=== PATIENT | female | born 1955 | race Caucasian/White ===

== ENCOUNTER 2017-08-23 13:04 | Inpatient (IN) | payer SELFPAY ==
[~2017-08-23] VITALS: Ht 160 cm; Wt 61.2 kg
[~2017-08-23 13:04] MED LIST: CIP500T PO; COM10T PO; HYDR-569 PO; IBUP-1984 PO; NO HOME MEDS
[2017-08-23] MEDS ORDERED: dicyclomine 10mg/ml 2ml ampule IM ONE (16:10)
[2017-08-23] MEDS ORDERED: glycopyrrolate 0.2mg/ml inj IV ONE (16:10)
[2017-08-23] MEDS ORDERED: morphine 4 MG/ML inj SYRINge IV ONE (16:10)
[2017-08-23] MEDS ORDERED: normal saline 1000ML IV soln IVB ONE ×3 (16:10→19:55)
[2017-08-23] MEDS ORDERED: ondansetron/PF 4mg/2ml inj IV ONE ×2 (16:10→19:40)
[2017-08-23 16:51] LABS: BASOPHILS % (AUTO) 0 % (0-1); EOSINOPHILS % (AUTO) 0 % (0-6); HEMATOCRIT 41.5 % (35.0-45.0); HEMOGLOBIN 14.6 g/dl (12.0-16.0); LYMPHOCYTES % (AUTO) 8.5 % (21-51); MEAN CORPUSCULAR HEMOGLOBIN 32.9 PG (27.0-31.0); MEAN CORPUSCULAR HGB CONC 35.1 % (33.0-36.5); MEAN CORPUSCULAR VOLUME 93.8 FL (78-98); MEAN PLATELET VOLUME 8.7 FL (7.4-10.4); MONOCYTES # (AUTO) 0.6 X10'3 (0-0.9); MONOCYTES % (AUTO) 4.7 % (2-12); NEUTROPHILS # (AUTO) 10.4 X10'3 (1.8-7.7); NEUTROPHILS % (AUTO) 86.8 % (42-75); PLATELET COUNT 186 X10'3 (140-440); RED BLOOD COUNT 4.43 X10'6 (4.20-5.60); RED CELL DISTRIBUTION WIDTH 14.2 % (11.5-14.5)
[2017-08-23 17:38] LABS: ALANINE AMINOTRANSFERASE 77 U/L (12-78); ALBUMIN 2.8 G/DL (3.4-5.0); ALBUMIN/GLOBULIN RATIO 0.4 (1.1-1.5); ALKALINE PHOSPHATASE 440 IU/L (46-116); ANION GAP 14 (8-16); BILIRUBIN,TOTAL 1.2 MG/DL (0.1-1.0); BLOOD UREA NITROGEN 13 MG/DL (7-18); BUN/CREATININE RATIO 16.5 (6.6-38.0); CALCIUM 9.3 MG/DL (8.5-10.1); CHLORIDE 98 MMOL/L (99-107); CREATININE 0.79 MG/DL (0.40-0.90); GLUCOSE 123 MG/DL (70-104); LIPASE 68 U/L (73-393); MAGNESIUM 2.1 MG/DL (1.5-2.4); SODIUM 135 MMOL/L (135-145); TOTAL CARBON DIOXIDE 22.8 MMOL/L (24-32); TOTAL PROTEIN 9.6 G/DL (6.4-8.2); eGFR 74 ML/MIN
[2017-08-23 17:39] LABS: ASPARTATE AMINO TRANSFERASE 55 U/L (10-37)
[2017-08-23] MEDS ORDERED: CefTRIAXone 2gm/NS 100ml IVPB 100 ML IV ONE (19:55)
[2017-08-23] MEDS ORDERED: azithromycin/NS 500mg/250ml 250 ML IV ONE (19:55)
[2017-08-23] MEDS ORDERED: acetaminophen 325mg tablet PO ONE (20:10)
[2017-08-23] MEDS ORDERED: butalbital/acetaminophen/caffeine (Fioricet) tablet PO ONE ×2 (21:00→21:25)
[2017-08-23] MEDS ORDERED: ketorolac trometh. 30mg/ml inj. IV ONE (21:25)
[2017-08-23] MEDS ORDERED: proCHLORperazine 10 MG/2 ml inj IV ONE (21:25)
[2017-08-23] MEDS ORDERED: mag hydrox/Alum hydrox/simeth 30ml oral suspension PO PRN (21:45)
[2017-08-23] MEDS ORDERED: bisacodyl 10mg suppository rectal RC PRN (21:45)
[2017-08-23] MEDS ORDERED: ondansetron/PF 4mg/2ml inj IV PRN (21:45)
[2017-08-23] MEDS ORDERED: morphine 2 MG/ML inj. syringe IV PRN ×2 (21:45)
[2017-08-23] MEDS ORDERED: magnesium hydroxide 30ml (MOM) UD suspension PO PRN (21:45)
[2017-08-23] MEDS ORDERED: HYDROcodone/acetaminophen 10/325mg tab PO PRN (21:45)
[2017-08-23] MEDS ORDERED: diphenhydrAMINE 25mg capsule PO PRN (21:45)
[2017-08-23] MEDS ORDERED: HYDROmorphone inj. 0.5 MG/0.5 ML DISP.SYRIN IV PRN ×2 (21:45)
[2017-08-23] MEDS ORDERED: diphenhydrAMINE 50 mg/ml inj IV PRN (21:45)
[2017-08-23] MEDS ORDERED: acetaminophen 325mg tablet PO PRN (21:45)
[2017-08-23 22:17] LABS: CLARITY,URINE Clear (Clear); COLOR,URINE Dark Yellow (Yellow); GLUCOSE, URINE Negative (Neg); KETONES,URINE Negative (Neg); LEUKOCYTE ESTERASE ,URINE Small (Neg); NITRITES, URINE Negative (Neg); OCCULT BLOOD,URINE Negative (Neg); PROTEIN,URINE 30 mg/dl (Neg)
[2017-08-23 22:20] LABS: UA COLLECTION TYPE CLN CATCH MIDSTREAM
[2017-08-23 22:26] LABS: HEMOGLOBIN A1C 5.4 % (4.5-6.2)
[2017-08-23 22:33] LABS: BACTERIA,URINE 1+ /HPF (Neg); RBC,URINE NONE SEEN /HPF (0-2)
[2017-08-23 22:34] LABS: PHOSPHORUS 1.9 MG/DL (2.3-4.5)
[2017-08-23 22:34] LABS: SQUAMOUS EPITHELIAL CELL,UR FEW /LPF (FEW)
[2017-08-23 23:00] VITALS: BP 107/48
[2017-08-23] MEDS: normal saline 1000ml 1,000 ML IV SCH (23:18)
[2017-08-24 04:07] LABS: BASOPHILS % (AUTO) 0.2 % (0-1); EOSINOPHILS % (AUTO) 0.3 % (0-6); HEMATOCRIT 30.1 % (35.0-45.0); HEMOGLOBIN 10.5 g/dl (12.0-16.0); LYMPHOCYTES # (AUTO) 1.7 X10'3 (1.1-4.8); LYMPHOCYTES % (AUTO) 19.5 % (21-51); MEAN CORPUSCULAR HEMOGLOBIN 32.9 PG (27.0-31.0); MEAN CORPUSCULAR HGB CONC 34.8 % (33.0-36.5); MEAN CORPUSCULAR VOLUME 94.5 FL (78-98); MEAN PLATELET VOLUME 8.5 FL (7.4-10.4); MONOCYTES # (AUTO) 0.6 X10'3 (0-0.9); MONOCYTES % (AUTO) 6.7 % (2-12); NEUTROPHILS # (AUTO) 6.3 X10'3 (1.8-7.7); NEUTROPHILS % (AUTO) 73.3 % (42-75); PLATELET COUNT 143 X10'3 (140-440); RED BLOOD COUNT 3.19 X10'6 (4.20-5.60); RED CELL DISTRIBUTION WIDTH 14.2 % (11.5-14.5); WHITE BLOOD COUNT 8.5 X10'3 (4.5-11.0)
[2017-08-24 04:24] LABS: ALANINE AMINOTRANSFERASE 42 U/L (12-78); ALBUMIN 1.7 G/DL (3.4-5.0); ALBUMIN/GLOBULIN RATIO 0.4 (1.1-1.5); ALKALINE PHOSPHATASE 250 IU/L (46-116); ANION GAP 10 (8-16); ASPARTATE AMINO TRANSFERASE 27 U/L (10-37); BILIRUBIN,TOTAL 0.6 MG/DL (0.1-1.0); BLOOD UREA NITROGEN 11 MG/DL (7-18); BUN/CREATININE RATIO 16.2 (6.6-38.0); CHLORIDE 109 MMOL/L (99-107); CHOL/HDL RATIO 3.6 (0.00-4.99); CHOLESTEROL 146 MG/DL (0-200); CREATININE 0.68 MG/DL (0.40-0.90); GLUCOSE 82 MG/DL (70-104); HDL CHOLESTEROL 41 MG/DL (35-60); LDL CHOLESTEROL 83 MG/DL (50-100); SODIUM 140 MMOL/L (135-145); TOTAL CARBON DIOXIDE 20.8 MMOL/L (24-32); TOTAL PROTEIN 5.9 G/DL (6.4-8.2); TRIGLYCERIDES 54 MG/DL (20-135); eGFR 89 ML/MIN
[2017-08-24 04:31] LABS: CALCIUM 6.8 MG/DL (8.5-10.1)
[2017-08-24] MEDS ORDERED: potassium Cl 20 mEq SR tablet PO PRN (06:35)
[2017-08-24] MEDS ORDERED: potassium Cl 40MEQ/NS 500ml 500 ML IV PRN ×2 (06:35)
[2017-08-24 06:38] LABS: ALANINE AMINOTRANSFERASE 51 U/L (12-78); ALBUMIN 1.9 G/DL (3.4-5.0); ALBUMIN/GLOBULIN RATIO 0.4 (1.1-1.5); ALKALINE PHOSPHATASE 267 IU/L (46-116); ANION GAP 11 (8-16); ASPARTATE AMINO TRANSFERASE 31 U/L (10-37); BILIRUBIN,TOTAL 0.7 MG/DL (0.1-1.0); BLOOD UREA NITROGEN 10 MG/DL (7-18); BUN/CREATININE RATIO 16.7 (6.6-38.0); CALCIUM 7.5 MG/DL (8.5-10.1); CHLORIDE 108 MMOL/L (99-107); GLUCOSE 81 MG/DL (70-104); POTASSIUM 3.2 MMOL/L (3.5-5.1); SODIUM 139 MMOL/L (135-145); TOTAL CARBON DIOXIDE 20.1 MMOL/L (24-32); TOTAL PROTEIN 6.4 G/DL (6.4-8.2); eGFR > 90 ML/MIN
[2017-08-24] MEDS ORDERED: FLU VACC QS2017-18 36MOS UP/PF 60 MCG/0.5 ML SYRINGE IMVAC ONE (06:50)
[2017-08-24 07:04] VITALS: BP 115/60
[2017-08-24] MEDS ORDERED: heparin, porcine 5000 units/ml vial SQ SCH (08:00)
[2017-08-24] MEDS: nicotine 21mg patch - 24 hr TD SCH (08:00)
[2017-08-24] MEDS: K and/or MAG REPLACEMENT MC SCH (08:00)
[2017-08-24] MEDS: cefTRIAXone 1g/NS 100ml IVPB 100 ML IV SCH ×2 (08:05→20:20)
[2017-08-24] MEDS: normal saline 1000ml 1,000 ML IV SCH (08:05)
[2017-08-24] MEDS: potassium Cl 20 mEq SR tablet PO PRN ×3 (08:06→20:21)
[2017-08-24] MEDS: methylPREDNISolone sod succ 125mg/2ml vial IV SCH ×2 (08:06→20:20)
[2017-08-24] MEDS: azithromycin 250mg tablet PO SCH (08:06)
[2017-08-24] MEDS: pantoprazole 40 MG vial IV SCH (08:06)
[2017-08-24 11:00] VITALS: BP 96/47
[2017-08-24 13:47] VITALS: BP 112/62
[2017-08-24] MEDS: lactobacillus rhamnosus 10,000 MMU CELLS/CAPSULE PO SCH (16:33)
[2017-08-24] MEDS ORDERED: pantoprazole 40 MG vial IV SCH (18:20)
[2017-08-24 19:30] VITALS: BP 92/49
[2017-08-24 21:08] LABS: OCCULT BLOOD STOOL NEGATIVE (Neg)
[2017-08-25] VITALS: BP 111/63
[2017-08-25 05:58] LABS: BASOPHILS % (AUTO) 0.1 % (0-1); EOSINOPHILS # (AUTO) 0.1 X10'3 (0-0.9); HEMATOCRIT 33.4 % (35.0-45.0); HEMOGLOBIN 11.6 g/dl (12.0-16.0); LYMPHOCYTES % (AUTO) 12.8 % (21-51); MEAN CORPUSCULAR HEMOGLOBIN 32.9 PG (27.0-31.0); MEAN CORPUSCULAR HGB CONC 34.7 % (33.0-36.5); MEAN CORPUSCULAR VOLUME 94.6 FL (78-98); MEAN PLATELET VOLUME 8.9 FL (7.4-10.4); MONOCYTES # (AUTO) 0.3 X10'3 (0-0.9); MONOCYTES % (AUTO) 4.2 % (2-12); NEUTROPHILS # (AUTO) 6.2 X10'3 (1.8-7.7); NEUTROPHILS % (AUTO) 81.9 % (42-75); PLATELET COUNT 206 X10'3 (140-440); RED BLOOD COUNT 3.53 X10'6 (4.20-5.60); RED CELL DISTRIBUTION WIDTH 14.1 % (11.5-14.5); WHITE BLOOD COUNT 7.5 X10'3 (4.5-11.0)
[2017-08-25 06:37] LABS: ALANINE AMINOTRANSFERASE 52 U/L (12-78); ALBUMIN/GLOBULIN RATIO 0.4 (1.1-1.5); ALKALINE PHOSPHATASE 284 IU/L (46-116); ANION GAP 9 (8-16); ASPARTATE AMINO TRANSFERASE 31 U/L (10-37); BILIRUBIN,TOTAL 0.4 MG/DL (0.1-1.0); BLOOD UREA NITROGEN 11 MG/DL (7-18); CALCIUM 8.4 MG/DL (8.5-10.1); CHLORIDE 109 MMOL/L (99-107); CREATININE 0.58 MG/DL (0.40-0.90); GLUCOSE 163 MG/DL (70-104); POTASSIUM 3.8 MMOL/L (3.5-5.1); SODIUM 140 MMOL/L (135-145); TOTAL CARBON DIOXIDE 21.6 MMOL/L (24-32); eGFR > 90 ML/MIN
[2017-08-25 07:00] VITALS: BP 105/70
[2017-08-25] MEDS: pantoprazole 40 MG vial IV SCH (07:11)
[2017-08-25] MEDS: methylPREDNISolone sod succ 125mg/2ml vial IV SCH (07:11)
[2017-08-25] MEDS: azithromycin 250mg tablet PO SCH (07:11)
[2017-08-25] MEDS: cefTRIAXone 1g/NS 100ml IVPB 100 ML IV SCH (07:11)
[2017-08-25] MEDS: lactobacillus rhamnosus 10,000 MMU CELLS/CAPSULE PO SCH (07:11)
[2017-08-25] MEDS: nicotine 21mg patch - 24 hr TD SCH (07:12)
[2017-08-25] MEDS: K and/or MAG REPLACEMENT MC SCH (08:00)
[2017-08-25] MEDS ORDERED: potassium Cl 20 mEq SR tablet PO SCH (08:30)
[2017-08-25 11:00] VITALS: BP 109/51
[2017-08-25] MEDS ORDERED: AZI25OT PO (11:10)
[2017-08-26 15:21] LABS: HEP A AB, IGM Negative (Negative); HEPATITIS C ANTIBODY 0.1 s/co ratio (0.0-0.9)
== END 2017-08-25 15:15 | disposition home or self-care (01) | DRG 871 ==
LOC: ER 13:04 → ED HOLD 21:42 → EDBEDREQ 22:24 → MED 3N 23:00
PROVIDERS: ADMIT Family Medicine; ATTEND Internal Medicine
DX: A41.9 Sepsis, unspecified organism (principal); J18.1 Lobar pneumonia, unspecified organism; K76.6 Portal hypertension; J44.0 Chronic obstructive pulmonary disease with (acute) lower respiratory infection; J44.1 Chronic obstructive pulmonary disease with (acute) exacerbation; K74.60 Unspecified cirrhosis of liver; K52.9 Noninfective gastroenteritis and colitis, unspecified; D64.9 Anemia, unspecified; E87.6 Hypokalemia; F17.210 Nicotine dependence, cigarettes, uncomplicated; I86.8 Varicose veins of other specified sites; K31.9 Disease of stomach and duodenum, unspecified; G43.909 Migraine, unspecified, not intractable, without status migrainosus; N28.9 Disorder of kidney and ureter, unspecified; Z79.899 Other long term (current) drug therapy; Z79.01 Long term (current) use of anticoagulants; Z79.82 Long term (current) use of aspirin; Z88.6 Allergy status to analgesic agent; Z88.2 Allergy status to sulfonamides; Z88.1 Allergy status to other antibiotic agents
CPT/HCPCS: 36415; 71045; 71250; 74176; 76705; 80053; 80061; 81001; 82272; 83036; 83605; 83690; 83735; 83880; 84100; 84145; 84484; 85025; 85610; 86706; 86709; 86803; 87040; 87070; 87088; 87502; 87503; 93005; 94760; 96365; 96375; 96376; 99285; C9113; J0456; J0500; J0696; J0780; J1885; J2270; J2405; J2930; J3490; J7030; Q2037

== ENCOUNTER 2018-07-04 22:02 | Emergency (ER) | payer MEDICAID ==
[~2018-07-04] VITALS: Ht 160 cm; Wt 60.0 kg
[~2018-07-04 22:02] MED LIST changes: +AZI25OT PO; -CIP500T PO; -COM10T PO; -HYDR-569 PO; -IBUP-1984 PO; -NO HOME MEDS
[2018-07-04] MEDS ORDERED: ketorolac trometh inj. 60 MG/2 ML VIAL IM ONE (22:25)
[2018-07-04] MEDS ORDERED: GABA300C PO (22:27)
[2018-07-04] MEDS ORDERED: CYCL-1 PO (22:27)
[2018-07-04 23:12] VITALS: BP 135/75
== END 2018-07-04 23:16 | disposition home or self-care (01) ==
LOC: ER 22:03
DX: M54.12 Radiculopathy, cervical region (principal); R20.0 Anesthesia of skin; R22.33 Localized swelling, mass and lump, upper limb, bilateral; G43.909 Migraine, unspecified, not intractable, without status migrainosus; Z88.6 Allergy status to analgesic agent; Z88.2 Allergy status to sulfonamides; Z87.440 Personal history of urinary (tract) infections
CPT/HCPCS: 96372; 99283; J1885

== ENCOUNTER 2018-07-12 18:30 | Inpatient (IN) | payer MEDICAID ==
[~2018-07-12] VITALS: Ht 170.2 cm; Wt 59.0 kg
[~2018-07-12 18:30] MED LIST changes: +CYCL-1 PO; +GABA300C PO
[2018-07-12 20:27] LABS: BASOPHILS % (AUTO) 0.3 % (0-1); EOSINOPHILS % (AUTO) 0.1 % (0-6); HEMATOCRIT 40.2 % (35.0-45.0); LYMPHOCYTES # (AUTO) 0.5 X10'3 (1.1-4.8); MEAN CORPUSCULAR HEMOGLOBIN 31.8 PG (27.0-31.0); MEAN CORPUSCULAR HGB CONC 34.8 % (33.0-36.5); MEAN CORPUSCULAR VOLUME 91.3 FL (78-98); MEAN PLATELET VOLUME 7.6 FL (7.4-10.4); MONOCYTES # (AUTO) 0.1 X10'3 (0-0.9); MONOCYTES % (AUTO) 2.9 % (2-12); NEUTROPHILS # (AUTO) 2.2 X10'3 (1.8-7.7); NEUTROPHILS % (AUTO) 77.7 % (42-75); PLATELET COUNT 254 X10'3 (140-440); RED CELL DISTRIBUTION WIDTH 14.2 % (11.5-14.5); WHITE BLOOD COUNT 2.9 X10'3 (4.5-11.0)
[2018-07-12 20:40] LABS: CLARITY,URINE SLIGHTLY CLOUDY (Clear); COLOR,URINE YELLOW (Yellow); GLUCOSE, URINE NEGATIVE (Neg); KETONES,URINE 15 mg/dl (Neg); LEUKOCYTE ESTERASE ,URINE NEGATIVE (Neg); NITRITES, URINE NEGATIVE (Neg); OCCULT BLOOD,URINE LARGE (Neg); PROTEIN,URINE 100 mg/dl (Neg); UROBILINOGEN,URINE 0.2 E.U/dL (0.2-1.0)
--- NOTE | 2018-07-12 20:43 | NUR ---
DR MOSCOSO IN TO SEE PT AND TALKING W/PT AND DAUGHTER. HE REPORTS HE WILL NOT ORDER A HEAD SCAN FOR THE FALL EARLIER AND HE WILL LIKELY PUT HER UP FOR ADMISSION. DAUGHTER WAS HOPEFUL OF ADMISSION.
[2018-07-12] MEDS ORDERED: BACL10TA PO (20:45)
[2018-07-12] MEDS ORDERED: IBUP-1985 PO (20:46)
--- NOTE | 2018-07-12 20:49 | NUR ---
PT'S DAUGHTER, DEEPIKA, AND PT REPORTING TO ME THE MEDICAL EVENTS OVER THE PAST 4 WEEKS. JUN 20, PT TO ER AND DIAGNOSED WITH INFLUENZA A (IN [place]) AND DID A COURSE OF ANTIBIOTICS. PT CONTINUES TO BE WEAK AND HAVE COUGH AND COLD AND ACHES AND SLEEPING ALOT. PT HAS HAD 3 SUBSEQUENT VISITS TO OUR ER SINCE (LAST APROX 1 WEEKS AGO) AND AT SOME POINT WAS STARTEDON GABAPENTIN FOR ACHES AND SUSPECTED NERVE PAIN. SHE WAS SEEN BY A WALK IN CLINIC IN [facility] A FEW DAYS AGO AND SEEN BY HER PCP YESTERDAY. LABS DRAWN YESTERDAY AND PT WAS SCHEDULED TO HAVE A CXR ON THRUSDAY. PT HAS NOT BEEN CALLED ABOUT ANY ABNORMAL RESULTS. SHE WAS STARTED ON BACLOFEN YESTERDAY AND HAS HAD 3 DOSES (LAST AT 8 AM). TODAY SHE HAS FALLEN 4 TIMES AND ONCE HIT THE BACK OF HER HEAD ON A DOORFRAME AND HAS BRUISING ON HER KNEES. DENIES ANY LOC. REPORTS HE LEGS JUST BECOME WEAK AND SHE FALLS. DAUGHTER STATES PT HAS NO MEDICAL PROBLEMS (OTHER THAN SHE SMOKES AND HAS HAD PNEUMONIA 2 TIMES OVER THE PAST FEW YRS AND SHE USUALLY RECOVERS QUICKLY. SHE REPROT PT IS VERY ACTIVE AND HEALTHY AND ENERGITIC AT BASELINE AND THIS PAST 4 WEEKS HAVE BEEN VERY ABNORMAL FOR HER TO BEE SO SLOW TO RECOVER.
[2018-07-12] MEDS ORDERED: acetaminophen 325mg tablet PO ONE (20:50)
[2018-07-12 20:51] LABS: ALANINE AMINOTRANSFERASE 162 U/L (12-78); ALBUMIN 1.9 G/DL (3.4-5.0); ALBUMIN/GLOBULIN RATIO 0.3 (1.1-1.5); ALKALINE PHOSPHATASE 361 IU/L (46-116); ANION GAP 13 (8-16); ASPARTATE AMINO TRANSFERASE 165 U/L (10-37); BILIRUBIN,TOTAL 0.6 MG/DL (0.1-1.0); BLOOD UREA NITROGEN 26 MG/DL (7-18); BUN/CREATININE RATIO 32.9 (6.6-38.0); CALCIUM 8.4 MG/DL (8.5-10.1); CHLORIDE 102 MMOL/L (99-107); CREATININE 0.79 MG/DL (0.40-0.90); GLUCOSE 97 MG/DL (70-104); POTASSIUM 3.3 MMOL/L (3.5-5.1); SODIUM 136 MMOL/L (135-145); TOTAL CARBON DIOXIDE 20.9 MMOL/L (24-32); TOTAL PROTEIN 7.5 G/DL (6.4-8.2); eGFR 74 ML/MIN
[2018-07-12 21:02] LABS: UA COLLECTION TYPE STRAIGHT CATH
[2018-07-12 21:04] LABS: RBC,URINE 50-100 /HPF (0-2)
[2018-07-12 21:05] LABS: BACTERIA,URINE FEW /HPF (Neg); SQUAMOUS EPITHELIAL CELL,UR FEW /LPF (FEW); WBC CASTS 0-3 /LPF (NEGATIVE)
[2018-07-12 21:38] LABS: TOTAL CELLS COUNTED 50
[2018-07-12 21:39] LABS: PLATELET ESTIMATE NORMAL
[2018-07-12] MEDS ORDERED: potassium Cl 20 mEq SR tablet PO STA (22:06)
[2018-07-12] MEDS ORDERED: normal saline 1000ML IV soln IVB ONE (22:10)
[2018-07-12] MEDS ORDERED: ondansetron/PF 4mg/2ml inj IV ONE (22:25)
[2018-07-12] MEDS: potassium 10mEq/100ml NS w/LIDOcaine (10mg/bag) IV SCH ×2 (22:36→23:59)
[2018-07-12 23:00] LABS: HEMOGLOBIN A1C 5.7 % (4.5-6.2)
--- NOTE | 2018-07-12 23:14 | NUR ---
DR WAGGONER AT BEDSIDE FOR ADMISSION. 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 PT AWAITING DR. MOSCOSO FOR LP. PT WITH CONTINUED RIGHT FLANK , RIGHT MID BACK PAIN, SOME PAIN TO HER BUTTOCK (FROM LYING ON THE GURNEY) AND BILATERAL SHOUDER PAIN. PT REMAINS A&OX4 AND PLEASANT AND COOPERATIVE. PT VERY GRATEFUL FOR CARE. PT BOOSTED AND TURNED ON HER LEFT SIDE. HR 102, OTHERWISE VSS.
[2018-07-12] MEDS ORDERED: acetaminophen 325mg tablet PO PRN (23:20)
[2018-07-12] MEDS ORDERED: ondansetron/PF 4mg/2ml inj IV PRN (23:20)
[2018-07-12] MEDS ORDERED: mag hydrox/Alum hydrox/simeth 30ml oral suspension PO PRN (23:20)
[2018-07-12] MEDS ORDERED: magnesium hydroxide 30ml (MOM) UD suspension PO PRN (23:20)
--- NOTE | 2018-07-13 00:07 | NUR ---
dr. esteves updated that Pt's pain is 10 out of 10 and all over her body. verbal received for msiv 4 mg and zofran x1 now.
[2018-07-13] MEDS ORDERED: morphine 4 MG/ML inj SYRINge IV ONE (00:10)
[2018-07-13 00:17] LABS: RHEUM FACTOR QUAL REFLEX TITER POSITIVE (Neg)
[2018-07-13 00:18] LABS: RF TITER 40 IU/ml (Neg)
[2018-07-13] MEDS: potassium Cl 20mEq in NS 1,000 ML IV SCH ×3 (00:54→21:28)
--- NOTE | 2018-07-13 00:54 | NUR ---
dr esteves attempting lp and unsuccessful. pt tolerating the procedure well. stable vs. reports msiv given 20 min ago is helping with her pain and it is now minimal. pt with room assignment.
--- NOTE | 2018-07-13 01:30 | NUR ---
oriented pt to room. tolerated well. neuro assess completed. VSS.
[2018-07-13 01:31] VITALS: BP 131/80
--- NOTE | 2018-07-13 02:00 | NUR ---
June Angel came to see patient. no new orders. pending LP results. sats stable, pt continues to c/o pain. June deferred to Brandi
[2018-07-13] MEDS ORDERED: morphine 2 MG/ML inj. syringe IV PRN (03:30)
--- NOTE | 2018-07-13 04:00 | NUR ---
Jeremyk to see pt. orders received for Vital Cap q6 and inspiratory pressure. watch use of morphine to sedate and decrease breathing pull. bladder scan small amount.
[2018-07-13] MEDS: morphine 4 MG/ML inj SYRINge IV PRN ×4 (04:06→16:44)
--- NOTE | 2018-07-13 05:20 | NUR ---
RT notified Brandi of Vital Capacity of 1100 - same as in ED. but NIP was negligable - "pt wasn't tryign she kept falling asleep and said she just got morphine". Brandi req RT to call ALL results of VC to hospitalist throughout day. RT will pass along in report as well.
[2018-07-13 06:00] VITALS: BP 133/64
--- NOTE | 2018-07-13 06:17 | NUR ---
reported to days. noted pt c/o discomfort with position - repositioned. cont pulse ox through tele. noted pt should go for LP this am. try not to give morphine prior to 0700 RT vital capacity.
--- NOTE | 2018-07-13 06:20 | NUR ---
I have received patient report from Lelia SANCHEZ
[2018-07-13] MEDS: heparin, porcine 5000 units/ml vial SQ SCH ×2 (07:54→19:09)
[2018-07-13 08:32] LABS: ALANINE AMINOTRANSFERASE 137 U/L (12-78); ALBUMIN 1.7 G/DL (3.4-5.0); ALBUMIN/GLOBULIN RATIO 0.3 (1.1-1.5); ALKALINE PHOSPHATASE 302 IU/L (46-116); ANION GAP 10 (8-16); ASPARTATE AMINO TRANSFERASE 139 U/L (10-37); BILIRUBIN,TOTAL 0.8 MG/DL (0.1-1.0); BLOOD UREA NITROGEN 25 MG/DL (7-18); BUN/CREATININE RATIO 36.8 (6.6-38.0); CALCIUM 8.2 MG/DL (8.5-10.1); CHLORIDE 106 MMOL/L (99-107); CREATINE KINASE 37 U/L (26-192); CREATININE 0.68 MG/DL (0.40-0.90); SODIUM 136 MMOL/L (135-145); TOTAL CARBON DIOXIDE 19.9 MMOL/L (24-32); TOTAL PROTEIN 6.8 G/DL (6.4-8.2); eGFR 88 ML/MIN
[2018-07-13 08:34] LABS: GLUCOSE 89 MG/DL (70-104); POTASSIUM 3.5 MMOL/L (3.5-5.1)
[2018-07-13 09:49] LABS: BASOPHILS % (AUTO) 0.2 % (0-1); EOSINOPHILS % (AUTO) 0.3 % (0-6); HEMATOCRIT 36.9 % (35.0-45.0); HEMOGLOBIN 12.6 g/dl (12.0-16.0); LYMPHOCYTES # (AUTO) 0.5 X10'3 (1.1-4.8); LYMPHOCYTES % (AUTO) 22.3 % (21-51); MEAN CORPUSCULAR HEMOGLOBIN 31.3 PG (27.0-31.0); MEAN CORPUSCULAR HGB CONC 34.2 % (33.0-36.5); MEAN CORPUSCULAR VOLUME 91.6 FL (78-98); MEAN PLATELET VOLUME 7.6 FL (7.4-10.4); MONOCYTES # (AUTO) 0.1 X10'3 (0-0.9); MONOCYTES % (AUTO) 2.8 % (2-12); NEUTROPHILS # (AUTO) 1.7 X10'3 (1.8-7.7); NEUTROPHILS % (AUTO) 74.4 % (42-75); PLATELET COUNT 232 X10'3 (140-440); RED BLOOD COUNT 4.03 X10'6 (4.20-5.60); RED CELL DISTRIBUTION WIDTH 14.4 % (11.5-14.5); WHITE BLOOD COUNT 2.3 X10'3 (4.5-11.0)
[2018-07-13 10:00] VITALS: BP 140/77
--- NOTE | 2018-07-13 10:49 | NUR ---
Extended PIV inserted to the right upper arm basilic vein x 1 attempt using ultrasound. Cindi johnson. Addendum: 07/13/18 at 1057 by Brigitte Rodriguez RN Amended: Links added.
[2018-07-13 12:44] LABS: TOTAL CELLS COUNTED 100
[2018-07-13 12:45] LABS: PLATELET ESTIMATE NORMAL
[2018-07-13 13:03] LABS: SMUDGE CELLS 1+
[2018-07-13 18:00] VITALS: BP 124/65
--- NOTE | 2018-07-13 18:25 | NUR ---
Patient in room ORTHO 4015B. I have received report from DANIEL MORGAN and had the opportunity to ask questions and assume patient care.
--- NOTE | 2018-07-13 18:52 | NUR ---
I gave patient report to Nanette SANCHEZ
[2018-07-13 22:00] VITALS: BP 129/61
[2018-07-14 06:00] VITALS: BP 143/70
--- NOTE | 2018-07-14 06:11 | NUR ---
Problems reprioritized. Patient report given, questions answered & plan of care reviewed with DANIEL Guido.
--- NOTE | 2018-07-14 06:27 | NUR ---
I have received patient report from Marizol SANCHEZ
[2018-07-14 07:17] LABS: RPR Non Reactive (Non Reactive)
[2018-07-14] MEDS: potassium Cl 20mEq in NS 1,000 ML IV SCH ×2 (07:25→16:52)
[2018-07-14] MEDS: heparin, porcine 5000 units/ml vial SQ SCH (07:25)
[2018-07-14 07:45] LABS: BASOPHILS % (AUTO) 0.4 % (0-1); EOSINOPHILS % (AUTO) 0.6 % (0-6); HEMATOCRIT 38.3 % (35.0-45.0); HEMOGLOBIN 13.2 g/dl (12.0-16.0); LYMPHOCYTES # (AUTO) 0.5 X10'3 (1.1-4.8); LYMPHOCYTES % (AUTO) 23.1 % (21-51); MEAN CORPUSCULAR HEMOGLOBIN 31.5 PG (27.0-31.0); MEAN CORPUSCULAR HGB CONC 34.5 % (33.0-36.5); MEAN CORPUSCULAR VOLUME 91.3 FL (78-98); MEAN PLATELET VOLUME 7.3 FL (7.4-10.4); MONOCYTES # (AUTO) 0.1 X10'3 (0-0.9); MONOCYTES % (AUTO) 2.4 % (2-12); NEUTROPHILS # (AUTO) 1.7 X10'3 (1.8-7.7); NEUTROPHILS % (AUTO) 73.5 % (42-75); PLATELET COUNT 232 X10'3 (140-440); RED CELL DISTRIBUTION WIDTH 14.4 % (11.5-14.5); WHITE BLOOD COUNT 2.4 X10'3 (4.5-11.0)
[2018-07-14 07:48] LABS: ALANINE AMINOTRANSFERASE 107 U/L (12-78); ALBUMIN 1.5 G/DL (3.4-5.0); ALBUMIN/GLOBULIN RATIO 0.3 (1.1-1.5); ALKALINE PHOSPHATASE 270 IU/L (46-116); ANION GAP 9 (8-16); ASPARTATE AMINO TRANSFERASE 103 U/L (10-37); BILIRUBIN,TOTAL 0.9 MG/DL (0.1-1.0); BLOOD UREA NITROGEN 17 MG/DL (7-18); BUN/CREATININE RATIO 28.8 (6.6-38.0); CHLORIDE 106 MMOL/L (99-107); CREATININE 0.59 MG/DL (0.40-0.90); POTASSIUM 3.7 MMOL/L (3.5-5.1); SODIUM 135 MMOL/L (135-145); TOTAL PROTEIN 6.5 G/DL (6.4-8.2); eGFR > 90 ML/MIN
[2018-07-14 07:51] LABS: GLUCOSE 89 MG/DL (70-104)
[2018-07-14 08:20] LABS: IMMUNOGLOBULIN A, QN, SERUM 502 mg/dL (87-352); IMMUNOGLOBULIN G, QN, SERUM 2425 mg/dL (700-1600); IMMUNOGLOBULIN M, QN, SERUM 285 mg/dL (26-217)
[2018-07-14] MEDS: levetiracetam 250mg tablet PO SCH ×2 (08:38→19:28)
[2018-07-14 09:20] LABS: HBSAG SCREEN Negative (Negative); HEP A AB, IGM Negative (Negative); HEP B CORE AB, IGM Negative (Negative); HEPATITIS C ANTIBODY <0.1 s/co ratio (0.0-0.9)
[2018-07-14 10:00] VITALS: BP 170/72
[2018-07-14 10:06] LABS: TOTAL CELLS COUNTED 100
[2018-07-14 10:08] LABS: PLATELET ESTIMATE NORMAL
[2018-07-14 14:00] VITALS: BP 166/75
[2018-07-14 18:00] VITALS: BP 132/63
--- NOTE | 2018-07-14 18:23 | NUR ---
I gave patient report to Marizol Julien RN
--- NOTE | 2018-07-14 18:23 | NUR ---
Patient in room ORTHO 4015b. I have received report from DANIEL Guido and had the opportunity to ask questions and assume patient care.
[2018-07-14 22:00] VITALS: BP 155/70
[2018-07-15] MEDS: potassium Cl 20mEq in NS 1,000 ML IV SCH ×2 (02:17→12:49)
[2018-07-15 06:00] VITALS: BP 155/70
--- NOTE | 2018-07-15 06:37 | NUR ---
Problems reprioritized. Patient report given, questions answered & plan of care reviewed with DANIEL Johnson.
[2018-07-15 07:20] VITALS: BP 136/63
--- NOTE | 2018-07-15 07:31 | NUR ---
call [place] [phone] in the , placed pt on 02 2 L and vss- 97 on 2 L. pt turned and repositioned, she is a/ox4 with moderate weakness in bilat u+L extremities Addendum: 07/15/18 at 0741 by Roxie Burns RN Amended: Links added.
[2018-07-15 07:46] LABS: BASOPHILS % (AUTO) 0.3 % (0-1); EOSINOPHILS % (AUTO) 0.4 % (0-6); HEMATOCRIT 35.8 % (35.0-45.0); HEMOGLOBIN 12.4 g/dl (12.0-16.0); LYMPHOCYTES # (AUTO) 0.4 X10'3 (1.1-4.8); MEAN CORPUSCULAR HEMOGLOBIN 31.6 PG (27.0-31.0); MEAN CORPUSCULAR HGB CONC 34.8 % (33.0-36.5); MEAN CORPUSCULAR VOLUME 90.9 FL (78-98); MEAN PLATELET VOLUME 7.4 FL (7.4-10.4); MONOCYTES % (AUTO) 1.9 % (2-12); NEUTROPHILS # (AUTO) 1.7 X10'3 (1.8-7.7); NEUTROPHILS % (AUTO) 77.4 % (42-75); PLATELET COUNT 192 X10'3 (140-440); RED BLOOD COUNT 3.93 X10'6 (4.20-5.60); WHITE BLOOD COUNT 2.2 X10'3 (4.5-11.0)
[2018-07-15 08:11] LABS: INR 1.2 INR; PROTHROMBIN TIME 11.8 SECONDS (9.0-12.0)
[2018-07-15 08:16] LABS: ALANINE AMINOTRANSFERASE 82 U/L (12-78); ALBUMIN 1.4 G/DL (3.4-5.0); ALBUMIN/GLOBULIN RATIO 0.3 (1.1-1.5); ALKALINE PHOSPHATASE 302 IU/L (46-116); ANION GAP 11 (8-16); ASPARTATE AMINO TRANSFERASE 90 U/L (10-37); BILIRUBIN,TOTAL 0.9 MG/DL (0.1-1.0); BLOOD UREA NITROGEN 13 MG/DL (7-18); CALCIUM 7.5 MG/DL (8.5-10.1); CHLORIDE 105 MMOL/L (99-107); GLUCOSE 78 MG/DL (70-104); POTASSIUM 3.4 MMOL/L (3.5-5.1); SODIUM 136 MMOL/L (135-145); TOTAL PROTEIN 6.1 G/DL (6.4-8.2); eGFR > 90 ML/MIN
[2018-07-15] MEDS: levetiracetam 250mg tablet PO SCH ×2 (09:05→20:51)
[2018-07-15 09:49] LABS: TOTAL CELLS COUNTED 100
[2018-07-15 09:50] LABS: BURR CELLS 1+; PLATELET ESTIMATE NORMAL; ROULEAUX 1+
[2018-07-15 10:00] VITALS: BP 156/75
--- NOTE | 2018-07-15 12:00 | NUR ---
second page to angio- Hi, can someone pls call me? Id like an ETA so I can coordinate her neuro consult
--- NOTE | 2018-07-15 12:31 | NUR ---
IR responded to my second page, states they do not have pt on schedule for LP because it is ordered under diagnostic not angio, even tho it was ordered yesterday, they want Dr Ponce to call Dr Durham's answering service to speak to Dr Durham about this. Addendum: 07/15/18 at 1418 by Roxie Burns RN spoke to radiology and they completed the exam
--- NOTE | 2018-07-15 12:31 | NUR ---
PAGER ID: [phone] MESSAGE: Elizabeth [phone] re ms Anushka Doe in [id number]- Per IR you need to call Dr Durham and discuss need for LP with him, [phone], answering service. Otherwise IR will not perform LP
[2018-07-15] MEDS ORDERED: LIDOcaine 1%/PF 5ML 10 MG/ML VIAL ONE (13:02)
--- NOTE | 2018-07-15 14:17 | NUR ---
PAGER ID: [phone] MESSAGE: Elizabeth [phone] Anushka Savage- pt in pain 04/05 no pain med orders, can we get something on board? Thank you!
[2018-07-15 14:47] LABS: GLUCOSE,CSF 51 MG/DL (40-75); TOTAL PROTEIN,CSF 36 MG/DL (30-60)
--- NOTE | 2018-07-15 14:59 | NUR ---
PAGER ID: [phone] MESSAGE: Elizabeth [phone] sorry to bug you Anushka Doe in [phone] would like [place] vs IV pain meds, can we get a [place] prn? Thank you. She is really painful. LP complete Addendum: 07/15/18 at 1503 by Roxie Burns RN orders for norco 5 received
[2018-07-15 15:35] LABS: CSF SUPERNATANT COLOR COLORLESS
[2018-07-15 15:36] LABS: APPEARANCE,CSF SL BLOODY
[2018-07-15 15:37] LABS: CSF VOLUME 13.5 ML; TUBE# COUNTED 1
[2018-07-15 15:39] LABS: APPEARANCE,CSF SL BLOODY; CSF RBC 3150 /CU MM (0); CSF SUPERNATANT COLOR COLORLESS; CSF VOLUME 13.5 ML; CSF WBC CT 2 /CU MM (0-5); TUBE# COUNTED 3
[2018-07-15] MEDS: HYDROcodone/acetaminophen 5mg/325mg tablet PO PRN ×3 (15:39→23:52)
[2018-07-15 15:40] LABS: CSF RBC 2100 /CU MM (0); CSF WBC CT 1 /CU MM (0-5)
[2018-07-15 16:45] VITALS: BP 135/71
[2018-07-15 18:00] VITALS: BP 151/68
[2018-07-15] MEDS: heparin, porcine 5000 units/ml vial SQ SCH (20:51)
[2018-07-15 22:00] VITALS: BP 132/61
[2018-07-16] MEDS: potassium Cl 20mEq in NS 1,000 ML IV SCH ×3 (01:07→17:10)
[2018-07-16 02:00] VITALS: BP 130/55
[2018-07-16] MEDS: HYDROcodone/acetaminophen 5mg/325mg tablet PO PRN ×4 (04:44→20:22)
[2018-07-16 04:45] VITALS: BP 132/64
--- NOTE | 2018-07-16 05:23 | NUR ---
I paged Rt over the concern that no VC was done at 2100 as scheduled and Hailey RT called back and said Rt was short staffed tonight and the next one is due at 0700 and will be done at that time. Per RT they are not going to be able to do a VC for the docking pilot. The pt's nurse, Elizabeth discussed this with RT earlier in the shift too.
[2018-07-16] MEDS: levetiracetam 250mg tablet PO SCH ×2 (07:28→20:13)
[2018-07-16] MEDS: heparin, porcine 5000 units/ml vial SQ SCH ×2 (07:28→20:13)
[2018-07-16 12:59] VITALS: BP 147/76
[2018-07-16 16:42] LABS: HEMATOCRIT 36.3 % (35.0-45.0); HEMOGLOBIN 12.8 g/dl (12.0-16.0); MEAN CORPUSCULAR HEMOGLOBIN 31.7 PG (27.0-31.0); MEAN CORPUSCULAR HGB CONC 35.2 % (33.0-36.5); MEAN CORPUSCULAR VOLUME 90.2 FL (78-98); MEAN PLATELET VOLUME 7.4 FL (7.4-10.4); PLATELET COUNT 192 X10'3 (140-440); RED BLOOD COUNT 4.03 X10'6 (4.20-5.60); RED CELL DISTRIBUTION WIDTH 14.2 % (11.5-14.5); WHITE BLOOD COUNT 2.7 X10'3 (4.5-11.0)
[2018-07-16 16:56] LABS: ALANINE AMINOTRANSFERASE 70 U/L (12-78); ALBUMIN 1.4 G/DL (3.4-5.0); ALBUMIN/GLOBULIN RATIO 0.3 (1.1-1.5); ALKALINE PHOSPHATASE 319 IU/L (46-116); ANION GAP 9 (8-16); ASPARTATE AMINO TRANSFERASE 73 U/L (10-37); BILIRUBIN,TOTAL 0.7 MG/DL (0.1-1.0); BLOOD UREA NITROGEN 13 MG/DL (7-18); BUN/CREATININE RATIO 27.1 (6.6-38.0); CALCIUM 7.9 MG/DL (8.5-10.1); CHLORIDE 103 MMOL/L (99-107); CREATININE 0.48 MG/DL (0.40-0.90); GLUCOSE 102 MG/DL (70-104); SODIUM 134 MMOL/L (135-145); TOTAL CARBON DIOXIDE 22.3 MMOL/L (24-32); TOTAL PROTEIN 6.4 G/DL (6.4-8.2); eGFR > 90 ML/MIN
[2018-07-16 16:58] LABS: ANISOCYTOSIS 1+; PLATELET ESTIMATE NORMAL; TOTAL CELLS COUNTED 100
[2018-07-16 18:00] VITALS: BP 136/64
--- NOTE | 2018-07-16 21:43 | NUR ---
pt vital capacity 950ml but pt seemed to have a hard time following instructions for the test. pt needs constant instruct on vital capacity maneuvers. vital capacity numbers seem to be inconsistent, however they have not dropped below 900ml. Addendum: 07/16/18 at 2149 by Mireille Andres RT Amended: Links added.
[2018-07-16 22:00] VITALS: BP 132/77
[2018-07-17] MEDS: HYDROcodone/acetaminophen 5mg/325mg tablet PO PRN ×5 (00:22→20:02)
[2018-07-17 06:00] VITALS: BP 151/75
--- NOTE | 2018-07-17 06:20 | NUR ---
received report from radha, rn
[2018-07-17 06:57] LABS: BASOPHILS % (AUTO) 0.5 % (0-1); EOSINOPHILS % (AUTO) 1.1 % (0-6); HEMATOCRIT 36.1 % (35.0-45.0); HEMOGLOBIN 12.4 g/dl (12.0-16.0); LYMPHOCYTES # (AUTO) 0.6 X10'3 (1.1-4.8); LYMPHOCYTES % (AUTO) 20.7 % (21-51); MEAN CORPUSCULAR HEMOGLOBIN 31.7 PG (27.0-31.0); MEAN CORPUSCULAR HGB CONC 34.3 % (33.0-36.5); MEAN CORPUSCULAR VOLUME 92.4 FL (78-98); MEAN PLATELET VOLUME 7.8 FL (7.4-10.4); MONOCYTES # (AUTO) 0.1 X10'3 (0-0.9); NEUTROPHILS # (AUTO) 2.3 X10'3 (1.8-7.7); NEUTROPHILS % (AUTO) 74.7 % (42-75); PLATELET COUNT 178 X10'3 (140-440); RED BLOOD COUNT 3.91 X10'6 (4.20-5.60); RED CELL DISTRIBUTION WIDTH 14.5 % (11.5-14.5); WHITE BLOOD COUNT 3.1 X10'3 (4.5-11.0)
[2018-07-17 07:01] LABS: ALANINE AMINOTRANSFERASE 55 U/L (12-78); ALBUMIN 1.2 G/DL (3.4-5.0); ALBUMIN/GLOBULIN RATIO 0.3 (1.1-1.5); ALKALINE PHOSPHATASE 300 IU/L (46-116); ANION GAP 7 (8-16); ASPARTATE AMINO TRANSFERASE 65 U/L (10-37); BILIRUBIN,TOTAL 0.6 MG/DL (0.1-1.0); BLOOD UREA NITROGEN 12 MG/DL (7-18); BUN/CREATININE RATIO 26.1 (6.6-38.0); CALCIUM 7.9 MG/DL (8.5-10.1); CHLORIDE 104 MMOL/L (99-107); CREATININE 0.46 MG/DL (0.40-0.90); GLUCOSE 93 MG/DL (70-104); POTASSIUM 3.7 MMOL/L (3.5-5.1); SODIUM 134 MMOL/L (135-145); TOTAL CARBON DIOXIDE 22.8 MMOL/L (24-32); TOTAL PROTEIN 5.8 G/DL (6.4-8.2); eGFR > 90 ML/MIN
[2018-07-17] MEDS: levetiracetam 250mg tablet PO SCH ×2 (07:32→20:01)
[2018-07-17] MEDS: heparin, porcine 5000 units/ml vial SQ SCH ×2 (07:35→20:01)
[2018-07-17 10:00] VITALS: BP 122/45
--- NOTE | 2018-07-17 14:10 | NUR ---
Initial: Pt admit w/ trouble ambulating and likely viral infection per MD note. WBC 3.1 w/ leukopenia per MD note. Pt remains having seizures currently post-ictal state; mercury, lead, and arsenic levels pending tox screen. B12 currently high; DEQUAN d/w RN for MMA labs per MD approval since could effect neurologic status though no GI/liver hx. PO 25-50% avg mechanical soft/chopped diet. Will continue to monitor. Rec: 1. continue mechanical soft/chopped diet per FILLING HAULER WEAVING 2. monitor for ONS needs 3. MMA labs per MD for elevated B12 results and neurologic status per MD approval 4. wt per rx Addendum: 07/17/18 at [address] Amended: Links added.
[2018-07-17] MEDS: CefTRIAXone/D5W-Rocephin 1gm 50 ML IV SCH (15:50)
[2018-07-17 18:00] VITALS: BP 113/50
--- NOTE | 2018-07-17 18:23 | NUR ---
GAVE REPORT TO DANIEL QUIJANO
--- NOTE | 2018-07-17 18:30 | NUR ---
Report received from Sara SANCHEZ, assumed care of patient.
[2018-07-17 22:00] VITALS: BP 136/60
[2018-07-18] MEDS: HYDROcodone/acetaminophen 5mg/325mg tablet PO PRN ×6 (00:52→22:57)
[2018-07-18 06:00] VITALS: BP 129/61
--- NOTE | 2018-07-18 06:09 | NUR ---
RECEIVED REPORT FROM MACIE Ball RN
--- NOTE | 2018-07-18 06:15 | NUR ---
Report given to Sara SANCHEZ.
[2018-07-18] MEDS: CefTRIAXone/D5W-Rocephin 1gm 50 ML IV SCH (07:49)
[2018-07-18] MEDS: levetiracetam 250mg tablet PO SCH ×2 (07:53→20:23)
[2018-07-18] MEDS: heparin, porcine 5000 units/ml vial SQ SCH ×2 (07:54→20:23)
[2018-07-18 10:00] VITALS: BP 136/64
[2018-07-18] MEDS ORDERED: gadopentetate dimeglumine 7.5 MMOL/15 ML syringe ONE (10:36)
[2018-07-18 18:00] VITALS: BP 135/55
--- NOTE | 2018-07-18 18:28 | NUR ---
gave report to gabriella lofton rn
[2018-07-18 22:00] VITALS: BP 159/77
[2018-07-19] MEDS: HYDROcodone/acetaminophen 5mg/325mg tablet PO PRN ×5 (03:11→20:08)
[2018-07-19 06:00] VITALS: BP 147/76
--- NOTE | 2018-07-19 06:14 | NUR ---
Report given to Jazmin SANCHEZ.
--- NOTE | 2018-07-19 06:20 | NUR ---
Patient in room ORTHO 4015. I have received report from Tracy Allen and had the opportunity to ask questions and assume patient care.
[2018-07-19] MEDS: levetiracetam 250mg tablet PO SCH ×2 (07:43→21:15)
[2018-07-19] MEDS: heparin, porcine 5000 units/ml vial SQ SCH ×2 (07:44→21:15)
[2018-07-19] MEDS: CefTRIAXone/D5W-Rocephin 1gm 50 ML IV SCH (07:53)
[2018-07-19 15:00] VITALS: BP 139/62
[2018-07-19 18:00] VITALS: BP 140/65
--- NOTE | 2018-07-19 18:28 | NUR ---
Problems reprioritized. Patient report given, questions answered & plan of care reviewed with Vandana.
[2018-07-19] MEDS: pregabalin 75mg capsule PO SCH (21:40)
[2018-07-19 22:00] VITALS: BP 132/67
[2018-07-20] MEDS: HYDROcodone/acetaminophen 5mg/325mg tablet PO PRN ×5 (04:27→21:07)
[2018-07-20 06:00] VITALS: BP 133/61
--- NOTE | 2018-07-20 06:15 | NUR ---
Patient in room ORTHO 4015. I have received report from [place] and had the opportunity to ask questions and assume patient care.
[2018-07-20 06:38] LABS: BASOPHILS % (AUTO) 0.4 % (0-1); HEMATOCRIT 33.6 % (35.0-45.0); HEMOGLOBIN 11.6 g/dl (12.0-16.0); LYMPHOCYTES # (AUTO) 0.7 X10'3 (1.1-4.8); LYMPHOCYTES % (AUTO) 20.8 % (21-51); MEAN CORPUSCULAR HEMOGLOBIN 31.2 PG (27.0-31.0); MEAN CORPUSCULAR HGB CONC 34.5 % (33.0-36.5); MEAN CORPUSCULAR VOLUME 90.3 FL (78-98); MEAN PLATELET VOLUME 8.3 FL (7.4-10.4); MONOCYTES # (AUTO) 0.1 X10'3 (0-0.9); MONOCYTES % (AUTO) 3.5 % (2-12); NEUTROPHILS # (AUTO) 2.3 X10'3 (1.8-7.7); NEUTROPHILS % (AUTO) 74.3 % (42-75); PLATELET COUNT 182 X10'3 (140-440); RED BLOOD COUNT 3.72 X10'6 (4.20-5.60); WHITE BLOOD COUNT 3.2 X10'3 (4.5-11.0)
[2018-07-20] MEDS: levetiracetam 250mg tablet PO SCH ×2 (07:36→19:12)
[2018-07-20] MEDS: CefTRIAXone/D5W-Rocephin 1gm 50 ML IV SCH (07:36)
[2018-07-20] MEDS: pregabalin 75mg capsule PO SCH ×2 (07:36→19:13)
[2018-07-20] MEDS: heparin, porcine 5000 units/ml vial SQ SCH ×2 (07:37→19:13)
[2018-07-20 10:00] VITALS: BP 115/59
--- NOTE | 2018-07-20 10:28 | NUR ---
Spoke with Dr. Macias in pt's room. Pt advised she is remaining here at [facility] and will receive a [address] course [address] Macias called the pharmacy, medication will arrive tomorrow. Pt has an extended IV and the pharmacy indicated this will suffice to administer the Privigen.
--- NOTE | 2018-07-20 12:45 | NUR ---
ASSUMED CARE, RECEIVED REPORT FROM THOM SANCHEZ, I AGREE WITH HER ASSESSMENT AND WILL NOTE ANY CHANGES. PATIENT SITTING UP IN RECLINER EATING LUNCH, PAIN MED GIVEN AND WILL CONTINUE TO MONITOR.
--- NOTE | 2018-07-20 12:47 | NUR ---
Problems reprioritized. Patient report given, questions answered & plan of care reviewed with Ronnie.
[2018-07-20 14:00] VITALS: BP 118/61
[2018-07-20 18:00] VITALS: BP 129/73
--- NOTE | 2018-07-20 18:15 | NUR ---
Problems reprioritized. Patient report given, questions answered & plan of care reviewed with EAMON SANCHEZ.
--- NOTE | 2018-07-20 18:23 | NUR ---
Patient in room ORTHO 4015. I have received report from Ronnie SANCHEZ and had the opportunity to ask questions and assume patient care.
[2018-07-20 22:00] VITALS: BP 133/55
[2018-07-21] MEDS: HYDROcodone/acetaminophen 5mg/325mg tablet PO PRN ×3 (01:17→16:26)
[2018-07-21 05:31] LABS: BASOPHILS % (AUTO) 0.3 % (0-1); EOSINOPHILS % (AUTO) 1.4 % (0-6); HEMATOCRIT 33.8 % (35.0-45.0); HEMOGLOBIN 11.8 g/dl (12.0-16.0); LYMPHOCYTES # (AUTO) 0.7 X10'3 (1.1-4.8); MEAN CORPUSCULAR HEMOGLOBIN 31.4 PG (27.0-31.0); MEAN CORPUSCULAR HGB CONC 34.9 % (33.0-36.5); MEAN PLATELET VOLUME 8.3 FL (7.4-10.4); MONOCYTES # (AUTO) 0.1 X10'3 (0-0.9); NEUTROPHILS # (AUTO) 2.2 X10'3 (1.8-7.7); NEUTROPHILS % (AUTO) 73.3 % (42-75); PLATELET COUNT 202 X10'3 (140-440); RED BLOOD COUNT 3.76 X10'6 (4.20-5.60); RED CELL DISTRIBUTION WIDTH 13.9 % (11.5-14.5)
[2018-07-21 05:54] LABS: ALANINE AMINOTRANSFERASE 39 U/L (12-78); ALBUMIN 1.3 G/DL (3.4-5.0); ALBUMIN/GLOBULIN RATIO 0.3 (1.1-1.5); ALKALINE PHOSPHATASE 469 IU/L (46-116); ANION GAP 5 (8-16); ASPARTATE AMINO TRANSFERASE 66 U/L (10-37); BILIRUBIN,TOTAL 0.7 MG/DL (0.1-1.0); BLOOD UREA NITROGEN 9 MG/DL (7-18); BUN/CREATININE RATIO 21.4 (6.6-38.0); CALCIUM 7.5 MG/DL (8.5-10.1); CHLORIDE 97 MMOL/L (99-107); CREATININE 0.42 MG/DL (0.40-0.90); GLUCOSE 95 MG/DL (70-104); MAGNESIUM 1.4 MG/DL (1.5-2.4); PHOSPHORUS 2.9 MG/DL (2.3-4.5); POTASSIUM 3.3 MMOL/L (3.5-5.1); SODIUM 130 MMOL/L (135-145); TOTAL CARBON DIOXIDE 27.7 MMOL/L (24-32); TOTAL PROTEIN 5.6 G/DL (6.4-8.2); eGFR > 90 ML/MIN
[2018-07-21 06:00] VITALS: BP 119/60
--- NOTE | 2018-07-21 06:28 | NUR ---
Problems reprioritized. Patient report given, questions answered & plan of care reviewed with Elizabeth SANCHEZ.
[2018-07-21 06:44] LABS: PLATELET ESTIMATE NORMAL; TOTAL CELLS COUNTED 100
[2018-07-21] MEDS: pregabalin 75mg capsule PO SCH ×2 (07:21→19:49)
[2018-07-21] MEDS: levetiracetam 250mg tablet PO SCH ×2 (07:21→19:49)
[2018-07-21] MEDS: heparin, porcine 5000 units/ml vial SQ SCH ×2 (07:21→19:50)
[2018-07-21] MEDS: CefTRIAXone/D5W-Rocephin 1gm 50 ML IV SCH (07:22)
--- NOTE | 2018-07-21 09:42 | NUR ---
PAGER ID: [phone] MESSAGE: Elizabeth [phone] Anushka Savage in 4015b- K+ 3.3, mg 1.4, ok to add protocol and replace? Also, pain 7-10 on [place] 5, can we increase to 10 for severe pain?
[2018-07-21 10:00] VITALS: BP 118/51
--- NOTE | 2018-07-21 10:39 | NUR ---
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 Pt hemodynamically stable and clinically feeling much better per MD progress notes. Pt remains on mechanical soft diet with fluctuating PO intake, however 75-100% yesterday, pending PO intake for today. LB 07/19. Will continue to follow. Rec: 1. continue mechanical soft/chopped diet per SALES DIRECTOR 2. monitor for ONS needs 3. MMA labs per MD for elevated B12 results and neurologic status per MD approval 4. wt per rx Addendum: 07/21/18 at [address] Amended: Links added.
[2018-07-21] MEDS ORDERED: magnesium 4gm in 100ml NS 100 ML IV PRN (10:50)
[2018-07-21] MEDS ORDERED: potassium Cl 40MEQ/NS 500ml 500 ML IV PRN ×2 (10:50)
[2018-07-21] MEDS ORDERED: potassium Cl 20 mEq SR tablet PO PRN (10:50)
[2018-07-21] MEDS ORDERED: HYDROcodone/acetaminophen 10/325mg tab PO PRN (11:05)
[2018-07-21] MEDS: magnesium Cl slow-release 64mg tablet PO PRN ×2 (11:26→19:50)
[2018-07-21] MEDS: potassium Cl 20 mEq SR tablet PO PRN ×3 (11:27→19:50)
[2018-07-21] MEDS: normal saline 1000ml 1,000 ML IV SCH ×3 (11:31→23:38)
[2018-07-21 16:30] VITALS: BP 113/50
[2018-07-21] MEDS: IGA AVG IV SCH (16:56)
[2018-07-21] MEDS: IMMUNE GLOBUL IV SCH (16:56)
[2018-07-21] MEDS: GLY IV SCH (16:56)
[2018-07-21 17:00] VITALS: BP 143/63
--- NOTE | 2018-07-21 18:30 | NUR ---
Patient in room ORTHO 4015. I have received report from DANIEL Johnson and had the opportunity to ask questions and assume patient care. patient awake and alert.
[2018-07-21] MEDS: OXYcodone (OXYCONTIN) Ext Release 15 MG TAB.SR.12H PO SCH (19:49)
[2018-07-21 22:00] VITALS: BP 108/49
[2018-07-22 06:00] VITALS: BP 111/52
--- NOTE | 2018-07-22 06:21 | NUR ---
Problems reprioritized. Patient report given, questions answered & plan of care reviewed with DANIEL Johnson.
[2018-07-22 06:42] LABS: BASOPHILS % (AUTO) 0.3 % (0-1); EOSINOPHILS % (AUTO) 0.9 % (0-6); HEMATOCRIT 31.5 % (35.0-45.0); LYMPHOCYTES # (AUTO) 0.8 X10'3 (1.1-4.8); MEAN CORPUSCULAR HEMOGLOBIN 31.6 PG (27.0-31.0); MEAN CORPUSCULAR HGB CONC 34.8 % (33.0-36.5); MEAN CORPUSCULAR VOLUME 90.7 FL (78-98); MEAN PLATELET VOLUME 8.1 FL (7.4-10.4); MONOCYTES # (AUTO) 0.2 X10'3 (0-0.9); NEUTROPHILS # (AUTO) 2.8 X10'3 (1.8-7.7); NEUTROPHILS % (AUTO) 73.8 % (42-75); PLATELET COUNT 205 X10'3 (140-440); RED BLOOD COUNT 3.47 X10'6 (4.20-5.60); RED CELL DISTRIBUTION WIDTH 14.2 % (11.5-14.5); WHITE BLOOD COUNT 3.8 X10'3 (4.5-11.0)
[2018-07-22 07:00] LABS: ALANINE AMINOTRANSFERASE 35 U/L (12-78); ALBUMIN 1.1 G/DL (3.4-5.0); ALBUMIN/GLOBULIN RATIO 0.2 (1.1-1.5); ALKALINE PHOSPHATASE 468 IU/L (46-116); ANION GAP 5 (8-16); ASPARTATE AMINO TRANSFERASE 62 U/L (10-37); BILIRUBIN,TOTAL 0.4 MG/DL (0.1-1.0); BLOOD UREA NITROGEN 8 MG/DL (7-18); BUN/CREATININE RATIO 17.4 (6.6-38.0); CALCIUM 7.4 MG/DL (8.5-10.1); CHLORIDE 101 MMOL/L (99-107); CREATININE 0.46 MG/DL (0.40-0.90); GLUCOSE 92 MG/DL (70-104); MAGNESIUM 1.5 MG/DL (1.5-2.4); PHOSPHORUS 2.7 MG/DL (2.3-4.5); POTASSIUM 4.2 MMOL/L (3.5-5.1); SODIUM 132 MMOL/L (135-145); TOTAL CARBON DIOXIDE 25.9 MMOL/L (24-32); eGFR > 90 ML/MIN
[2018-07-22] MEDS: heparin, porcine 5000 units/ml vial SQ SCH ×2 (09:05→19:52)
[2018-07-22] MEDS: CefTRIAXone/D5W-Rocephin 1gm 50 ML IV SCH (09:05)
[2018-07-22] MEDS: pregabalin 75mg capsule PO SCH ×2 (09:06→19:51)
[2018-07-22] MEDS: levetiracetam 250mg tablet PO SCH ×2 (09:06→19:52)
[2018-07-22] MEDS: normal saline 1000ml 1,000 ML IV SCH (09:06)
[2018-07-22] MEDS: OXYcodone (OXYCONTIN) Ext Release 15 MG TAB.SR.12H PO SCH ×2 (09:06→19:52)
[2018-07-22 10:00] VITALS: BP 113/48
[2018-07-22] MEDS: IMMUNE GLOBUL IV SCH (10:45)
[2018-07-22] MEDS: GLY IV SCH (10:45)
[2018-07-22] MEDS: IGA AVG IV SCH (10:45)
[2018-07-22 14:00] VITALS: BP 102/58
[2018-07-22 18:00] VITALS: BP 156/77
[2018-07-22] MEDS: HYDROcodone/acetaminophen 5mg/325mg tablet PO PRN (18:06)
--- NOTE | 2018-07-22 18:30 | NUR ---
Patient in room ORTHO 4015. I have received report from DANIEL Johnson and had the opportunity to ask questions and assume patient care.
[2018-07-22 22:00] VITALS: BP 104/50
[2018-07-23] MEDS: HYDROcodone/acetaminophen 5mg/325mg tablet PO PRN (04:31)
[2018-07-23] MEDS: normal saline 1000ml 1,000 ML IV SCH (04:36)
[2018-07-23 06:00] VITALS: BP 121/58
--- NOTE | 2018-07-23 06:20 | NUR ---
received report from gabriella maciel rn
--- NOTE | 2018-07-23 06:42 | NUR ---
Problems reprioritized. Patient report given, questions answered & plan of care reviewed with DANIEL Ruiz.
[2018-07-23 07:12] LABS: BASOPHILS % (AUTO) 0.1 % (0-1); EOSINOPHILS % (AUTO) 0.4 % (0-6); HEMATOCRIT 32.2 % (35.0-45.0); HEMOGLOBIN 11.1 g/dl (12.0-16.0); LYMPHOCYTES # (AUTO) 0.6 X10'3 (1.1-4.8); LYMPHOCYTES % (AUTO) 11.8 % (21-51); MEAN CORPUSCULAR HGB CONC 34.3 % (33.0-36.5); MEAN CORPUSCULAR VOLUME 90.3 FL (78-98); MEAN PLATELET VOLUME 7.9 FL (7.4-10.4); MONOCYTES # (AUTO) 0.1 X10'3 (0-0.9); MONOCYTES % (AUTO) 1.6 % (2-12); NEUTROPHILS # (AUTO) 4.4 X10'3 (1.8-7.7); NEUTROPHILS % (AUTO) 86.1 % (42-75); PLATELET COUNT 225 X10'3 (140-440); RED BLOOD COUNT 3.57 X10'6 (4.20-5.60); RED CELL DISTRIBUTION WIDTH 14.4 % (11.5-14.5); WHITE BLOOD COUNT 5.1 X10'3 (4.5-11.0)
[2018-07-23 07:45] LABS: ALANINE AMINOTRANSFERASE 38 U/L (12-78); ALBUMIN 1.2 G/DL (3.4-5.0); ALBUMIN/GLOBULIN RATIO 0.2 (1.1-1.5); ALKALINE PHOSPHATASE 548 IU/L (46-116); ANION GAP 7 (8-16); ASPARTATE AMINO TRANSFERASE 67 U/L (10-37); BILIRUBIN,TOTAL 0.7 MG/DL (0.1-1.0); BLOOD UREA NITROGEN 8 MG/DL (7-18); CALCIUM 7.4 MG/DL (8.5-10.1); CHLORIDE 100 MMOL/L (99-107); GLUCOSE 93 MG/DL (70-104); MAGNESIUM 1.4 MG/DL (1.5-2.4); PHOSPHORUS 2.8 MG/DL (2.3-4.5); POTASSIUM 3.8 MMOL/L (3.5-5.1); SODIUM 132 MMOL/L (135-145); TOTAL CARBON DIOXIDE 25.5 MMOL/L (24-32); TOTAL PROTEIN 6.5 G/DL (6.4-8.2); eGFR > 90 ML/MIN
[2018-07-23] MEDS: levetiracetam 250mg tablet PO SCH ×2 (08:05→20:30)
[2018-07-23] MEDS: OXYcodone (OXYCONTIN) Ext Release 15 MG TAB.SR.12H PO SCH ×2 (08:06→20:30)
[2018-07-23] MEDS: pregabalin 75mg capsule PO SCH ×2 (08:06→20:30)
[2018-07-23] MEDS: heparin, porcine 5000 units/ml vial SQ SCH ×2 (08:10→20:30)
--- NOTE | 2018-07-23 08:12 | NUR ---
scanner on computer not working, checked meds prior to admin
[2018-07-23] MEDS: IMMUNE GLOBUL IV SCH (09:30)
[2018-07-23] MEDS: GLY IV SCH (09:30)
[2018-07-23] MEDS: IGA AVG IV SCH (09:30)
[2018-07-23 10:00] VITALS: BP 111/53
--- NOTE | 2018-07-23 18:22 | NUR ---
gave report to prasad sommer
[2018-07-23 18:24] VITALS: BP 130/61
[2018-07-23 22:00] VITALS: BP 128/58
[2018-07-24] MEDS: normal saline 1000ml 1,000 ML IV SCH (02:48)
[2018-07-24] MEDS: HYDROcodone/acetaminophen 5mg/325mg tablet PO PRN ×2 (03:34→17:37)
[2018-07-24 06:00] VITALS: BP 134/61
[2018-07-24 06:57] LABS: BASOPHILS % (AUTO) 0.2 % (0-1); EOSINOPHILS % (AUTO) 0.4 % (0-6); HEMATOCRIT 29.7 % (35.0-45.0); HEMOGLOBIN 10.4 g/dl (12.0-16.0); LYMPHOCYTES # (AUTO) 0.6 X10'3 (1.1-4.8); LYMPHOCYTES % (AUTO) 14.5 % (21-51); MEAN CORPUSCULAR HEMOGLOBIN 31.6 PG (27.0-31.0); MEAN CORPUSCULAR HGB CONC 35.1 % (33.0-36.5); MEAN CORPUSCULAR VOLUME 90.1 FL (78-98); MONOCYTES # (AUTO) 0.1 X10'3 (0-0.9); MONOCYTES % (AUTO) 1.8 % (2-12); NEUTROPHILS # (AUTO) 3.5 X10'3 (1.8-7.7); NEUTROPHILS % (AUTO) 83.1 % (42-75); PLATELET COUNT 191 X10'3 (140-440); RED CELL DISTRIBUTION WIDTH 14.3 % (11.5-14.5); WHITE BLOOD COUNT 4.3 X10'3 (4.5-11.0)
--- NOTE | 2018-07-24 07:07 | NUR ---
Patient in room ORTHO 4015. I have received report from Martita SANCHEZ and had the opportunity to ask questions and assume patient care.
[2018-07-24 07:26] LABS: ALANINE AMINOTRANSFERASE 31 U/L (12-78); ALBUMIN 1.1 G/DL (3.4-5.0); ALBUMIN/GLOBULIN RATIO 0.2 (1.1-1.5); ALKALINE PHOSPHATASE 479 IU/L (46-116); ANION GAP 6 (8-16); ASPARTATE AMINO TRANSFERASE 60 U/L (10-37); BLOOD UREA NITROGEN 8 MG/DL (7-18); CALCIUM 7.5 MG/DL (8.5-10.1); CHLORIDE 97 MMOL/L (99-107); GLUCOSE 93 MG/DL (70-104); MAGNESIUM 1.4 MG/DL (1.5-2.4); PHOSPHORUS 2.7 MG/DL (2.3-4.5); POTASSIUM 3.3 MMOL/L (3.5-5.1); SODIUM 129 MMOL/L (135-145); TOTAL CARBON DIOXIDE 25.6 MMOL/L (24-32); TOTAL PROTEIN 6.6 G/DL (6.4-8.2); eGFR > 90 ML/MIN
[2018-07-24] MEDS: pregabalin 75mg capsule PO SCH ×2 (08:11→19:45)
[2018-07-24] MEDS: levetiracetam 250mg tablet PO SCH ×2 (08:11→19:45)
[2018-07-24] MEDS: OXYcodone (OXYCONTIN) Ext Release 15 MG TAB.SR.12H PO SCH ×2 (08:11→19:45)
[2018-07-24] MEDS: heparin, porcine 5000 units/ml vial SQ SCH ×2 (08:12→19:45)
[2018-07-24] MEDS: IGA AVG IV SCH (08:15)
[2018-07-24] MEDS: GLY IV SCH (08:15)
[2018-07-24] MEDS: IMMUNE GLOBUL IV SCH (08:15)
[2018-07-24 10:00] VITALS: BP 106/55
[2018-07-24] MEDS: potassium Cl 20 mEq SR tablet PO PRN ×3 (10:57→19:45)
[2018-07-24] MEDS: magnesium Cl slow-release 64mg tablet PO PRN ×2 (10:57→15:17)
[2018-07-24] MEDS: High Protein Smoothie Arginine/Glut./Ca2+Bmb (Juven 19.3pkt) 240ml cup PO SCH ×2 (13:10→18:00)
[2018-07-24] MEDS: sodium chloride 1gm tablet PO SCH ×3 (13:13→19:45)
[2018-07-24 18:00] VITALS: BP 136/65
--- NOTE | 2018-07-24 18:23 | NUR ---
Problems reprioritized. Patient report given, questions answered & plan of care reviewed with Tika SANCHEZ.
--- NOTE | 2018-07-24 19:00 | NUR ---
RECEIVED REPORT FROM NIKKI SANCHEZ AND ASSUMED PATIENT CARE
[2018-07-24 22:00] VITALS: BP 121/58
[2018-07-25] MEDS: normal saline 1000ml 1,000 ML IV SCH ×2 (05:35→23:56)
[2018-07-25 06:00] VITALS: BP 124/60
[2018-07-25] MEDS: HYDROcodone/acetaminophen 5mg/325mg tablet PO PRN ×2 (06:20→17:32)
--- NOTE | 2018-07-25 06:30 | NUR ---
Patient in room ORTHO 4015. I have received report from Tika SANCHEZ and had the opportunity to ask questions and assume patient care.
[2018-07-25 07:18] LABS: BASOPHILS % (AUTO) 0.1 % (0-1); EOSINOPHILS % (AUTO) 0.4 % (0-6); HEMATOCRIT 30.9 % (35.0-45.0); HEMOGLOBIN 10.8 g/dl (12.0-16.0); LYMPHOCYTES # (AUTO) 0.5 X10'3 (1.1-4.8); LYMPHOCYTES % (AUTO) 11.3 % (21-51); MEAN CORPUSCULAR HEMOGLOBIN 31.3 PG (27.0-31.0); MEAN CORPUSCULAR HGB CONC 34.8 % (33.0-36.5); MEAN PLATELET VOLUME 8.2 FL (7.4-10.4); MONOCYTES # (AUTO) 0.2 X10'3 (0-0.9); MONOCYTES % (AUTO) 3.6 % (2-12); NEUTROPHILS # (AUTO) 3.6 X10'3 (1.8-7.7); NEUTROPHILS % (AUTO) 84.6 % (42-75); PLATELET COUNT 183 X10'3 (140-440); RED BLOOD COUNT 3.43 X10'6 (4.20-5.60); RED CELL DISTRIBUTION WIDTH 14.5 % (11.5-14.5); WHITE BLOOD COUNT 4.2 X10'3 (4.5-11.0)
[2018-07-25 07:48] LABS: ALANINE AMINOTRANSFERASE 34 U/L (12-78); ALBUMIN 1.1 G/DL (3.4-5.0); ALBUMIN/GLOBULIN RATIO 0.2 (1.1-1.5); ALKALINE PHOSPHATASE 521 IU/L (46-116); ANION GAP 5 (8-16); ASPARTATE AMINO TRANSFERASE 70 U/L (10-37); BILIRUBIN,TOTAL 1.3 MG/DL (0.1-1.0); BLOOD UREA NITROGEN 8 MG/DL (7-18); BUN/CREATININE RATIO 17.4 (6.6-38.0); CALCIUM 7.9 MG/DL (8.5-10.1); CHLORIDE 97 MMOL/L (99-107); CREATININE 0.46 MG/DL (0.40-0.90); GLUCOSE 99 MG/DL (70-104); MAGNESIUM 1.5 MG/DL (1.5-2.4); PHOSPHORUS 2.5 MG/DL (2.3-4.5); POTASSIUM 3.9 MMOL/L (3.5-5.1); SODIUM 127 MMOL/L (135-145); TOTAL PROTEIN 7.2 G/DL (6.4-8.2); eGFR > 90 ML/MIN
[2018-07-25] MEDS: OXYcodone (OXYCONTIN) Ext Release 15 MG TAB.SR.12H PO SCH ×2 (08:01→20:06)
[2018-07-25] MEDS: sodium chloride 1gm tablet PO SCH ×4 (08:01→20:06)
[2018-07-25] MEDS: pregabalin 75mg capsule PO SCH ×2 (08:01→20:06)
[2018-07-25] MEDS: levetiracetam 250mg tablet PO SCH ×2 (08:01→20:06)
[2018-07-25] MEDS: heparin, porcine 5000 units/ml vial SQ SCH ×2 (08:01→20:07)
[2018-07-25] MEDS: High Protein Smoothie Arginine/Glut./Ca2+Bmb (Juven 19.3pkt) 240ml cup PO SCH ×3 (08:02→17:58)
[2018-07-25] MEDS: IGA AVG IV SCH (08:49)
[2018-07-25] MEDS: GLY IV SCH (08:49)
[2018-07-25] MEDS: IMMUNE GLOBUL IV SCH (08:49)
[2018-07-25 10:00] VITALS: BP 135/65
[2018-07-25] MEDS: azithromycin 250mg tablet PO SCH (17:46)
[2018-07-25] MEDS: piperacillin/tazo 3.375gm/50ml 50 ML IV SCH ×2 (17:54→23:56)
[2018-07-25 18:00] VITALS: BP 125/59
--- NOTE | 2018-07-25 18:06 | NUR ---
Problems reprioritized. Patient report given, questions answered & plan of care reviewed with Eileen.
--- NOTE | 2018-07-25 18:09 | NUR ---
RECEIVED REPORT FROM MARVEL SANCHEZ AND ASSUMED PATIENT CARE
--- NOTE | 2018-07-25 21:59 | NUR ---
PATIENT FOUND TO HAVE PULLED OUT EXTENDED IV FROM RIGHT UPPER ARM. IV AND CANNULA INTACT. NEW PIV PLACED IN RIGHT HAND.
[2018-07-25 22:00] VITALS: BP 135/69
[2018-07-26 06:00] VITALS: BP 126/69
--- NOTE | 2018-07-26 06:11 | NUR ---
REPORT GIVEN TO MARVEL SANCHEZ
[2018-07-26 06:20] LABS: ALANINE AMINOTRANSFERASE 31 U/L (12-78); ALBUMIN 1.2 G/DL (3.4-5.0); ALBUMIN/GLOBULIN RATIO 0.2 (1.1-1.5); ALKALINE PHOSPHATASE 487 IU/L (46-116); ANION GAP 9 (8-16); ASPARTATE AMINO TRANSFERASE 67 U/L (10-37); BILIRUBIN,TOTAL 1.4 MG/DL (0.1-1.0); BLOOD UREA NITROGEN 7 MG/DL (7-18); BUN/CREATININE RATIO 15.9 (6.6-38.0); CALCIUM 8.1 MG/DL (8.5-10.1); CHLORIDE 94 MMOL/L (99-107); CREATININE 0.44 MG/DL (0.40-0.90); GLUCOSE 93 MG/DL (70-104); MAGNESIUM 1.4 MG/DL (1.5-2.4); PHOSPHORUS 2.7 MG/DL (2.3-4.5); POTASSIUM 3.6 MMOL/L (3.5-5.1); SODIUM 126 MMOL/L (135-145); TOTAL CARBON DIOXIDE 23.4 MMOL/L (24-32); TOTAL PROTEIN 7.6 G/DL (6.4-8.2); eGFR > 90 ML/MIN
[2018-07-26 06:21] LABS: BASOPHILS % (AUTO) 0.2 % (0-1); EOSINOPHILS # (AUTO) 0.1 X10'3 (0-0.9); EOSINOPHILS % (AUTO) 1.5 % (0-6); HEMATOCRIT 34.5 % (35.0-45.0); LYMPHOCYTES # (AUTO) 0.6 X10'3 (1.1-4.8); LYMPHOCYTES % (AUTO) 16.4 % (21-51); MEAN CORPUSCULAR HEMOGLOBIN 31.2 PG (27.0-31.0); MEAN CORPUSCULAR HGB CONC 34.6 % (33.0-36.5); MEAN CORPUSCULAR VOLUME 90.1 FL (78-98); MEAN PLATELET VOLUME 8.2 FL (7.4-10.4); MONOCYTES # (AUTO) 0.2 X10'3 (0-0.9); MONOCYTES % (AUTO) 4.6 % (2-12); NEUTROPHILS # (AUTO) 2.6 X10'3 (1.8-7.7); NEUTROPHILS % (AUTO) 77.3 % (42-75); PLATELET COUNT 234 X10'3 (140-440); RED BLOOD COUNT 3.83 X10'6 (4.20-5.60); RED CELL DISTRIBUTION WIDTH 14.6 % (11.5-14.5); WHITE BLOOD COUNT 3.4 X10'3 (4.5-11.0)
[2018-07-26] MEDS: azithromycin 250mg tablet PO SCH (07:55)
[2018-07-26] MEDS: levetiracetam 250mg tablet PO SCH ×2 (07:55→21:30)
[2018-07-26] MEDS: sodium chloride 1gm tablet PO SCH ×4 (07:55→21:31)
[2018-07-26] MEDS: piperacillin/tazo 3.375gm/50ml 50 ML IV SCH ×2 (07:55→16:29)
[2018-07-26] MEDS: pregabalin 75mg capsule PO SCH ×2 (07:55→21:30)
[2018-07-26] MEDS: OXYcodone (OXYCONTIN) Ext Release 15 MG TAB.SR.12H PO SCH (07:55)
[2018-07-26] MEDS: heparin, porcine 5000 units/ml vial SQ SCH ×2 (07:56→20:12)
[2018-07-26] MEDS: High Protein Smoothie Arginine/Glut./Ca2+Bmb (Juven 19.3pkt) 240ml cup PO SCH ×3 (08:08→18:00)
[2018-07-26 10:00] VITALS: BP 91/40
[2018-07-26] MEDS: magnesium Cl slow-release 64mg tablet PO PRN (12:32)
--- NOTE | 2018-07-26 14:01 | NUR ---
Reassessment: Pt PO 25% avg meals w/ possible PNA having recurrent spasms followed by ALOC per MD note. On salt pills w/ NS for Na 126. LBM 07/25. RD d/w RN regarding MMA test per MD approval given ALOC and elevated B12. Will continue to monitor. Rec: 1. continue mechanical soft/chopped diet per SENIOR QA ANALYST 2. monitor for ONS needs 3. MMA labs per MD for elevated B12 results and neurologic status per MD approval 4. wt per rx Addendum: 07/26/18 at [address] Amended: Links added.
[2018-07-26] MEDS: HYDROcodone/acetaminophen 5mg/325mg tablet PO PRN (16:26)
[2018-07-26 18:00] VITALS: BP 108/47
--- NOTE | 2018-07-26 18:24 | NUR ---
Problems reprioritized. Patient report given, questions answered & plan of care reviewed with Tika SANCHEZ.
--- NOTE | 2018-07-26 18:27 | NUR ---
RECEIVED REPORT FROM MARVEL SANCHEZ AND ASSUMED PATIENT CARE
[2018-07-26] MEDS: normal saline 1000ml 1,000 ML IV SCH (21:31)
[2018-07-26 22:00] VITALS: BP 107/53
[2018-07-27] MEDS: piperacillin/tazo 3.375gm/50ml 50 ML IV SCH ×3 (00:51→17:16)
[2018-07-27 05:37] LABS: BASOPHILS % (AUTO) 0.2 % (0-1); EOSINOPHILS % (AUTO) 1.3 % (0-6); HEMATOCRIT 28.1 % (35.0-45.0); HEMOGLOBIN 9.9 g/dl (12.0-16.0); LYMPHOCYTES # (AUTO) 0.5 X10'3 (1.1-4.8); LYMPHOCYTES % (AUTO) 15.8 % (21-51); MEAN CORPUSCULAR HEMOGLOBIN 31.5 PG (27.0-31.0); MEAN CORPUSCULAR HGB CONC 35.2 g/dL (33.0-36.5); MEAN CORPUSCULAR VOLUME 89.5 FL (78-98); MONOCYTES # (AUTO) 0.2 X10'3 (0-0.9); MONOCYTES % (AUTO) 6.2 % (2-12); NEUTROPHILS # (AUTO) 2.5 X10'3 (1.8-7.7); NEUTROPHILS % (AUTO) 76.5 % (42-75); PLATELET COUNT 233 X10'3 (140-440); RED BLOOD COUNT 3.14 X10'6 (4.20-5.60); RED CELL DISTRIBUTION WIDTH 14.8 % (11.5-14.5); WHITE BLOOD COUNT 3.2 X10'3 (4.5-11.0)
[2018-07-27 05:54] LABS: ALANINE AMINOTRANSFERASE 30 U/L (12-78); ALBUMIN 1.1 G/DL (3.4-5.0); ALBUMIN/GLOBULIN RATIO 0.2 (1.1-1.5); ALKALINE PHOSPHATASE 443 IU/L (46-116); ANION GAP 6 (8-16); ASPARTATE AMINO TRANSFERASE 59 U/L (10-37); BILIRUBIN,TOTAL 1.2 MG/DL (0.1-1.0); BLOOD UREA NITROGEN 7 MG/DL (7-18); BUN/CREATININE RATIO 13.2 (6.6-38.0); CHLORIDE 99 MMOL/L (99-107); CREATININE 0.53 MG/DL (0.40-0.90); GLUCOSE 82 MG/DL (70-104); MAGNESIUM 1.4 MG/DL (1.5-2.4); PHOSPHORUS 2.8 MG/DL (2.3-4.5); POTASSIUM 3.1 MMOL/L (3.5-5.1); SODIUM 132 MMOL/L (135-145); TOTAL CARBON DIOXIDE 27.3 MMOL/L (24-32); TOTAL PROTEIN 6.6 G/DL (6.4-8.2); eGFR > 90 ML/MIN
[2018-07-27 06:00] VITALS: BP 111/51
[2018-07-27] MEDS: pregabalin 75mg capsule PO SCH ×2 (08:10→19:07)
[2018-07-27] MEDS: levetiracetam 250mg tablet PO SCH ×2 (08:10→19:08)
[2018-07-27] MEDS: High Protein Smoothie Arginine/Glut./Ca2+Bmb (Juven 19.3pkt) 240ml cup PO SCH ×3 (08:11→18:00)
[2018-07-27] MEDS: azithromycin 250mg tablet PO SCH (08:11)
[2018-07-27] MEDS: heparin, porcine 5000 units/ml vial SQ SCH ×2 (08:11→19:09)
[2018-07-27] MEDS: sodium chloride 1gm tablet PO SCH ×4 (08:11→19:08)
[2018-07-27] MEDS: normal saline 1000ml 1,000 ML IV SCH (08:14)
[2018-07-27] MEDS: potassium Cl 20 mEq SR tablet PO PRN (08:15)
[2018-07-27] MEDS: magnesium Cl slow-release 64mg tablet PO PRN (08:16)
[2018-07-27] MEDS: HYDROcodone/acetaminophen 5mg/325mg tablet PO PRN ×3 (08:16→19:09)
[2018-07-27 10:00] VITALS: BP 98/48
[2018-07-27] MEDS ORDERED: ipratropium/albuterol 3ml nebule NEB PRN (12:25)
[2018-07-27] MEDS ORDERED: magnesium Cl slow-release 64mg tablet PO PRN (14:55)
[2018-07-27] MEDS ORDERED: magnesium 4gm in 100ml NS 100 ML IV PRN (14:55)
[2018-07-27] MEDS ORDERED: potassium Cl 20 mEq SR tablet PO PRN ×2 (14:55)
[2018-07-27] MEDS ORDERED: potassium Cl 40MEQ/NS 500ml 500 ML IV PRN ×2 (14:55)
[2018-07-27] MEDS ORDERED: potassium Cl oral solution 20 MEQ/15 ML PO PRN (15:23)
[2018-07-27 18:00] VITALS: BP 119/56
--- NOTE | 2018-07-27 18:30 | NUR ---
Patient in room ORTHO 4015. I have received report from DANIEL Johnson and had the opportunity to ask questions and assume patient care.
[2018-07-27] MEDS: potassium Cl oral solution 20 MEQ/15 ML PO PRN (19:08)
[2018-07-27 22:00] VITALS: BP 126/57
[2018-07-28] MEDS: piperacillin/tazo 3.375gm/50ml 50 ML IV SCH ×3 (00:12→16:33)
[2018-07-28 06:00] VITALS: BP 126/54
--- NOTE | 2018-07-28 06:00 | NUR ---
Patient in room ORTHO 4015. I have received report from MACIE Andrade RN and had the opportunity to ask questions and assume patient care.
--- NOTE | 2018-07-28 06:08 | NUR ---
Problems reprioritized. Patient report given, questions answered & plan of care reviewed with DANIEL Trujillo.
[2018-07-28 06:23] LABS: BASOPHILS % (AUTO) 0.4 % (0-1); EOSINOPHILS % (AUTO) 0.9 % (0-6); HEMATOCRIT 28.9 % (35.0-45.0); HEMOGLOBIN 10.2 g/dl (12.0-16.0); LYMPHOCYTES # (AUTO) 0.7 X10'3 (1.1-4.8); LYMPHOCYTES % (AUTO) 19.6 % (21-51); MEAN CORPUSCULAR HEMOGLOBIN 31.5 PG (27.0-31.0); MEAN CORPUSCULAR HGB CONC 35.1 g/dL (33.0-36.5); MEAN CORPUSCULAR VOLUME 89.8 FL (78-98); MEAN PLATELET VOLUME 7.6 FL (7.4-10.4); MONOCYTES # (AUTO) 0.2 X10'3 (0-0.9); MONOCYTES % (AUTO) 5.2 % (2-12); NEUTROPHILS # (AUTO) 2.6 X10'3 (1.8-7.7); NEUTROPHILS % (AUTO) 73.9 % (42-75); PLATELET COUNT 219 X10'3 (140-440); RED BLOOD COUNT 3.22 X10'6 (4.20-5.60); RED CELL DISTRIBUTION WIDTH 14.4 % (11.5-14.5); WHITE BLOOD COUNT 3.5 X10'3 (4.5-11.0)
[2018-07-28 06:45] LABS: ALANINE AMINOTRANSFERASE 31 U/L (12-78); ALBUMIN 1.1 G/DL (3.4-5.0); ALBUMIN/GLOBULIN RATIO 0.2 (1.1-1.5); ALKALINE PHOSPHATASE 487 IU/L (46-116); ANION GAP 7 (8-16); ASPARTATE AMINO TRANSFERASE 72 U/L (10-37); BILIRUBIN,TOTAL 1.2 MG/DL (0.1-1.0); BLOOD UREA NITROGEN 7 MG/DL (7-18); BUN/CREATININE RATIO 13.5 (6.6-38.0); CALCIUM 7.8 MG/DL (8.5-10.1); CHLORIDE 105 MMOL/L (99-107); CREATININE 0.52 MG/DL (0.40-0.90); GLUCOSE 81 MG/DL (70-104); MAGNESIUM 1.5 MG/DL (1.5-2.4); PHOSPHORUS 2.5 MG/DL (2.3-4.5); POTASSIUM 3.3 MMOL/L (3.5-5.1); SODIUM 138 MMOL/L (135-145); TOTAL CARBON DIOXIDE 25.6 MMOL/L (24-32); TOTAL PROTEIN 6.5 G/DL (6.4-8.2); eGFR > 90 ML/MIN
[2018-07-28] MEDS: sodium chloride 1gm tablet PO SCH ×4 (08:00→20:59)
[2018-07-28] MEDS: levetiracetam 250mg tablet PO SCH ×2 (08:05→20:59)
[2018-07-28] MEDS: pregabalin 75mg capsule PO SCH ×2 (08:05→20:59)
[2018-07-28] MEDS: HYDROcodone/acetaminophen 5mg/325mg tablet PO PRN ×4 (08:06→22:23)
[2018-07-28] MEDS: azithromycin 250mg tablet PO SCH (08:06)
[2018-07-28] MEDS: potassium Cl oral solution 20 MEQ/15 ML PO PRN ×3 (08:06→22:17)
[2018-07-28] MEDS: High Protein Smoothie Arginine/Glut./Ca2+Bmb (Juven 19.3pkt) 240ml cup PO SCH ×3 (08:07→18:00)
[2018-07-28] MEDS: heparin, porcine 5000 units/ml vial SQ SCH ×2 (08:07→20:59)
[2018-07-28 10:00] VITALS: BP 144/61
[2018-07-28] MEDS: normal saline 1000ml 1,000 ML IV SCH (13:05)
[2018-07-28 18:00] VITALS: BP 152/62
--- NOTE | 2018-07-28 18:15 | NUR ---
Problems reprioritized. Patient report given, questions answered & plan of care reviewed with MACIE Andrade RN. Addendum: 07/28/18 at 1827 by Ronnie Keenan RN LIZZIE SANCHEZ
--- NOTE | 2018-07-28 18:15 | NUR ---
Patient in room ORTHO 4015. I have received report from DANIEL Trujillo and had the opportunity to ask questions and assume patient care.
[2018-07-28 22:00] VITALS: BP 143/62
[2018-07-29] MEDS: piperacillin/tazo 3.375gm/50ml 50 ML IV SCH ×4 (00:09→23:42)
[2018-07-29] MEDS: normal saline 1000ml 1,000 ML IV SCH (05:39)
[2018-07-29] MEDS: HYDROcodone/acetaminophen 5mg/325mg tablet PO PRN (05:39)
[2018-07-29 06:00] VITALS: BP 147/77
[2018-07-29 07:00] LABS: BASOPHILS % (AUTO) 0.4 % (0-1); EOSINOPHILS % (AUTO) 1.2 % (0-6); HEMATOCRIT 30.4 % (35.0-45.0); HEMOGLOBIN 10.6 g/dl (12.0-16.0); LYMPHOCYTES # (AUTO) 0.7 X10'3 (1.1-4.8); LYMPHOCYTES % (AUTO) 18.4 % (21-51); MEAN CORPUSCULAR HEMOGLOBIN 31.7 PG (27.0-31.0); MEAN CORPUSCULAR HGB CONC 34.9 g/dL (33.0-36.5); MEAN CORPUSCULAR VOLUME 90.8 FL (78-98); MEAN PLATELET VOLUME 7.6 FL (7.4-10.4); MONOCYTES # (AUTO) 0.1 X10'3 (0-0.9); MONOCYTES % (AUTO) 1.7 % (2-12); NEUTROPHILS # (AUTO) 3.1 X10'3 (1.8-7.7); NEUTROPHILS % (AUTO) 78.3 % (42-75); PLATELET COUNT 211 X10'3 (140-440); RED BLOOD COUNT 3.34 X10'6 (4.20-5.60); RED CELL DISTRIBUTION WIDTH 14.4 % (11.5-14.5)
[2018-07-29] MEDS: levetiracetam 250mg tablet PO SCH ×2 (07:21→19:54)
[2018-07-29] MEDS: pregabalin 75mg capsule PO SCH ×2 (07:21→19:53)
[2018-07-29] MEDS: sodium chloride 1gm tablet PO SCH ×4 (07:21→19:54)
[2018-07-29] MEDS: azithromycin 250mg tablet PO SCH (07:22)
[2018-07-29] MEDS: heparin, porcine 5000 units/ml vial SQ SCH ×2 (07:23→19:53)
[2018-07-29 07:35] LABS: ALANINE AMINOTRANSFERASE 38 U/L (12-78); ALBUMIN 1.3 G/DL (3.4-5.0); ALBUMIN/GLOBULIN RATIO 0.2 (1.1-1.5); ALKALINE PHOSPHATASE 510 IU/L (46-116); ANION GAP 8 (8-16); ASPARTATE AMINO TRANSFERASE 81 U/L (10-37); BILIRUBIN,TOTAL 1.2 MG/DL (0.1-1.0); BLOOD UREA NITROGEN 7 MG/DL (7-18); BUN/CREATININE RATIO 13.7 (6.6-38.0); CALCIUM 7.7 MG/DL (8.5-10.1); CHLORIDE 105 MMOL/L (99-107); CREATININE 0.51 MG/DL (0.40-0.90); GLUCOSE 92 MG/DL (70-104); MAGNESIUM 1.5 MG/DL (1.5-2.4); PHOSPHORUS 2.7 MG/DL (2.3-4.5); POTASSIUM 3.5 MMOL/L (3.5-5.1); SODIUM 139 MMOL/L (135-145); TOTAL CARBON DIOXIDE 25.8 MMOL/L (24-32); TOTAL PROTEIN 6.7 G/DL (6.4-8.2); eGFR > 90 ML/MIN
[2018-07-29] MEDS: High Protein Smoothie Arginine/Glut./Ca2+Bmb (Juven 19.3pkt) 240ml cup PO SCH ×3 (08:00→18:00)
[2018-07-29 10:00] VITALS: BP 123/56
[2018-07-29] MEDS ORDERED: sincalide inj 0 MCG in normal saline 50ml IV soln 50 ML IV ONE (11:45)
--- NOTE | 2018-07-29 12:14 | NUR ---
PAGER ID: [phone] MESSAGE: Elizabeth [id number] jackie Doe in [phone], can you call me? Thank you
[2018-07-29] MEDS: oxyCODONE IR 5mg (immed. release) tablet PO PRN ×2 (13:47→19:54)
--- NOTE | 2018-07-29 17:27 | NUR ---
PAGER ID: [phone] MESSAGE: Elizabeth [phone] re Ms Doe in [id number]- her bp is elevated, 150/90's, she is on salt tabs, echo prelim report LVEF 60 and vascular report negative. Lasix? Also, oxy 5 Q6 is not sufficient per pt, can we do Q4? thanks!
[2018-07-29 18:00] VITALS: BP 177/69
--- NOTE | 2018-07-29 18:00 | NUR ---
Patient in room ORTHO 4015. I have received report from DANIEL Johnson and had the opportunity to ask questions and assume patient care.
[2018-07-29] MEDS: furosemide 20 MG/2 ML vial IV SCH (19:53)
[2018-07-29 22:00] VITALS: BP 116/56
[2018-07-30] MEDS: oxyCODONE IR 5mg (immed. release) tablet PO PRN ×3 (04:45→17:51)
[2018-07-30 06:00] VITALS: BP 126/62
--- NOTE | 2018-07-30 06:07 | NUR ---
Problems reprioritized. Patient report given, questions answered & plan of care reviewed with DANIEL Ruiz.
--- NOTE | 2018-07-30 06:24 | NUR ---
received report from prasad chavez
[2018-07-30 07:14] LABS: BASOPHILS % (AUTO) 0.4 % (0-1); EOSINOPHILS # (AUTO) 0.1 X10'3 (0-0.9); EOSINOPHILS % (AUTO) 1.6 % (0-6); HEMATOCRIT 27.5 % (35.0-45.0); HEMOGLOBIN 9.6 g/dl (12.0-16.0); LYMPHOCYTES # (AUTO) 0.7 X10'3 (1.1-4.8); LYMPHOCYTES % (AUTO) 19.7 % (21-51); MEAN CORPUSCULAR HEMOGLOBIN 31.5 PG (27.0-31.0); MEAN CORPUSCULAR HGB CONC 34.7 g/dL (33.0-36.5); MEAN CORPUSCULAR VOLUME 90.8 FL (78-98); MEAN PLATELET VOLUME 7.8 FL (7.4-10.4); MONOCYTES # (AUTO) 0.1 X10'3 (0-0.9); MONOCYTES % (AUTO) 2.1 % (2-12); NEUTROPHILS # (AUTO) 2.7 X10'3 (1.8-7.7); NEUTROPHILS % (AUTO) 76.2 % (42-75); PLATELET COUNT 208 X10'3 (140-440); RED BLOOD COUNT 3.03 X10'6 (4.20-5.60); WHITE BLOOD COUNT 3.5 X10'3 (4.5-11.0)
[2018-07-30 07:26] LABS: ALANINE AMINOTRANSFERASE 39 U/L (12-78); ALBUMIN 1.2 G/DL (3.4-5.0); ALBUMIN/GLOBULIN RATIO 0.2 (1.1-1.5); ALKALINE PHOSPHATASE 513 IU/L (46-116); ANION GAP 6 (8-16); ASPARTATE AMINO TRANSFERASE 78 U/L (10-37); BLOOD UREA NITROGEN 9 MG/DL (7-18); CALCIUM 7.5 MG/DL (8.5-10.1); CHLORIDE 103 MMOL/L (99-107); GLUCOSE 94 MG/DL (70-104); MAGNESIUM 1.4 MG/DL (1.5-2.4); PHOSPHORUS 3.4 MG/DL (2.3-4.5); POTASSIUM 3.1 MMOL/L (3.5-5.1); SODIUM 138 MMOL/L (135-145); TOTAL CARBON DIOXIDE 28.8 MMOL/L (24-32); TOTAL PROTEIN 6.4 G/DL (6.4-8.2); eGFR > 90 ML/MIN
[2018-07-30] MEDS: High Protein Smoothie Arginine/Glut./Ca2+Bmb (Juven 19.3pkt) 240ml cup PO SCH ×3 (07:54→18:00)
[2018-07-30] MEDS: sodium chloride 1gm tablet PO SCH ×4 (08:01→20:27)
[2018-07-30] MEDS: pregabalin 75mg capsule PO SCH ×2 (08:02→20:27)
[2018-07-30] MEDS: levetiracetam 250mg tablet PO SCH ×2 (08:02→20:27)
[2018-07-30] MEDS: azithromycin 250mg tablet PO SCH (08:02)
[2018-07-30] MEDS: piperacillin/tazo 3.375gm/50ml 50 ML IV SCH ×2 (08:03→16:43)
[2018-07-30] MEDS: furosemide 20 MG/2 ML vial IV SCH ×2 (08:05→20:27)
[2018-07-30] MEDS: heparin, porcine 5000 units/ml vial SQ SCH ×2 (08:08→20:27)
[2018-07-30 08:19] LABS: TOTAL CELLS COUNTED 100
[2018-07-30 08:20] LABS: ANISOCYTOSIS 1+; HYPOCHROMASIA 1+; PLATELET ESTIMATE NORMAL; POLYCHROMASIA 1+; SMUDGE CELLS FEW; STOMATOCYTES 1+; TOXIC GRANULATION 1+
[2018-07-30] MEDS ORDERED: LIDOcaine 1% 30ml vial 5 ML in potassium Cl 40MEQ/NS 500ml 500 ML IV PRN (09:35)
[2018-07-30 10:30] VITALS: BP 147/68
[2018-07-30] MEDS ORDERED: potassium Cl 20 mEq SR tablet PO PRN (14:55)
[2018-07-30] MEDS ORDERED: magnesium 2GM in 50ml NS 50 ML IV PRN (14:55)
[2018-07-30] MEDS ORDERED: potassium Cl 40MEQ/NS 500ml 500 ML IV PRN ×2 (14:55)
[2018-07-30] MEDS ORDERED: magnesium Cl slow-release 64mg tablet PO PRN (14:55)
[2018-07-30] MEDS ORDERED: magnesium 4gm in 100ml NS 100 ML IV PRN (14:55)
[2018-07-30 18:00] VITALS: BP 106/49
--- NOTE | 2018-07-30 18:30 | NUR ---
gave report to prasad amlloy
[2018-07-30 22:00] VITALS: BP 113/56
[2018-07-31] MEDS: piperacillin/tazo 3.375gm/50ml 50 ML IV SCH ×3 (00:47→16:03)
--- NOTE | 2018-07-31 02:03 | NUR ---
IV Potassium bag administration was not saved. but it was hung around 2300. created administraion.
[2018-07-31] MEDS: oxyCODONE IR 5mg (immed. release) tablet PO PRN ×3 (04:11→17:42)
[2018-07-31 05:43] LABS: EOSINOPHILS % (AUTO) 1.4 % (0-6); HEMATOCRIT 28.4 % (35.0-45.0); HEMOGLOBIN 9.9 g/dl (12.0-16.0); LYMPHOCYTES # (AUTO) 0.7 X10'3 (1.1-4.8); LYMPHOCYTES % (AUTO) 23.4 % (21-51); MEAN CORPUSCULAR HEMOGLOBIN 31.5 PG (27.0-31.0); MEAN CORPUSCULAR HGB CONC 34.7 g/dL (33.0-36.5); MEAN CORPUSCULAR VOLUME 90.9 FL (78-98); MEAN PLATELET VOLUME 8.1 FL (7.4-10.4); MONOCYTES # (AUTO) 0.1 X10'3 (0-0.9); MONOCYTES % (AUTO) 3.1 % (2-12); NEUTROPHILS # (AUTO) 2.2 X10'3 (1.8-7.7); NEUTROPHILS % (AUTO) 71.1 % (42-75); PLATELET COUNT 196 X10'3 (140-440); RED BLOOD COUNT 3.13 X10'6 (4.20-5.60); RED CELL DISTRIBUTION WIDTH 14.8 % (11.5-14.5); WHITE BLOOD COUNT 3.1 X10'3 (4.5-11.0)
[2018-07-31 06:00] VITALS: BP 134/83
[2018-07-31 06:03] LABS: ALANINE AMINOTRANSFERASE 47 U/L (12-78); ALBUMIN 1.3 G/DL (3.4-5.0); ALBUMIN/GLOBULIN RATIO 0.3 (1.1-1.5); ALKALINE PHOSPHATASE 557 IU/L (46-116); ANION GAP 4 (8-16); ASPARTATE AMINO TRANSFERASE 87 U/L (10-37); BLOOD UREA NITROGEN 10 MG/DL (7-18); BUN/CREATININE RATIO 18.9 (6.6-38.0); CALCIUM 7.4 MG/DL (8.5-10.1); CHLORIDE 101 MMOL/L (99-107); CREATININE 0.53 MG/DL (0.40-0.90); GLUCOSE 95 MG/DL (70-104); MAGNESIUM 2.4 MG/DL (1.5-2.4); POTASSIUM 3.1 MMOL/L (3.5-5.1); SODIUM 134 MMOL/L (135-145); TOTAL CARBON DIOXIDE 29.3 MMOL/L (24-32); TOTAL PROTEIN 6.4 G/DL (6.4-8.2); eGFR > 90 ML/MIN
--- NOTE | 2018-07-31 06:30 | NUR ---
Patient in room ORTHO 4015. I have received report from Jeannie SANCHEZ and had the opportunity to ask questions and assume patient care.
[2018-07-31] MEDS: furosemide 20 MG/2 ML vial IV SCH ×2 (07:58→20:00)
[2018-07-31] MEDS: K and/or MAG REPLACEMENT MC SCH (08:00)
[2018-07-31] MEDS: potassium Cl 20 mEq SR tablet PO PRN ×2 (08:06→16:03)
[2018-07-31] MEDS: pregabalin 75mg capsule PO SCH ×2 (08:06→20:51)
[2018-07-31] MEDS: azithromycin 250mg tablet PO SCH (08:06)
[2018-07-31] MEDS: sodium chloride 1gm tablet PO SCH ×4 (08:06→20:51)
[2018-07-31] MEDS: heparin, porcine 5000 units/ml vial SQ SCH ×2 (08:06→20:51)
[2018-07-31] MEDS: levetiracetam 250mg tablet PO SCH ×2 (08:06→20:51)
[2018-07-31] MEDS: High Protein Smoothie Arginine/Glut./Ca2+Bmb (Juven 19.3pkt) 240ml cup PO SCH ×4 (08:46→21:50)
[2018-07-31 10:00] VITALS: BP 111/51
[2018-07-31 18:09] VITALS: BP 122/54
--- NOTE | 2018-07-31 18:25 | NUR ---
Problems reprioritized. Patient report given, questions answered & plan of care reviewed with Tika SANCHEZ.
[2018-07-31 22:00] VITALS: BP_SYST 111; BP_SYST 118; BP_DIAS 49; BP_DIAS 56
[2018-08-01] MEDS: piperacillin/tazo 3.375gm/50ml 50 ML IV SCH ×3 (00:02→15:45)
[2018-08-01] MEDS: oxyCODONE IR 5mg (immed. release) tablet PO PRN ×4 (00:42→20:17)
[2018-08-01 02:00] VITALS: BP 103/55
[2018-08-01 06:00] VITALS: BP 129/54
--- NOTE | 2018-08-01 06:11 | NUR ---
REPORT GIVEN TO SASKIA SANCHEZ
[2018-08-01 06:26] LABS: BASOPHILS % (AUTO) 0.3 % (0-1); EOSINOPHILS # (AUTO) 0.1 X10'3 (0-0.9); EOSINOPHILS % (AUTO) 1.8 % (0-6); HEMATOCRIT 27.8 % (35.0-45.0); HEMOGLOBIN 9.9 g/dl (12.0-16.0); LYMPHOCYTES # (AUTO) 0.7 X10'3 (1.1-4.8); LYMPHOCYTES % (AUTO) 19.4 % (21-51); MEAN CORPUSCULAR HEMOGLOBIN 32.5 PG (27.0-31.0); MEAN CORPUSCULAR HGB CONC 35.4 g/dL (33.0-36.5); MEAN CORPUSCULAR VOLUME 91.7 FL (78-98); MEAN PLATELET VOLUME 8.3 FL (7.4-10.4); MONOCYTES # (AUTO) 0.1 X10'3 (0-0.9); MONOCYTES % (AUTO) 2.5 % (2-12); NEUTROPHILS # (AUTO) 2.6 X10'3 (1.8-7.7); PLATELET COUNT 169 X10'3 (140-440); RED BLOOD COUNT 3.03 X10'6 (4.20-5.60); RED CELL DISTRIBUTION WIDTH 14.7 % (11.5-14.5); WHITE BLOOD COUNT 3.4 X10'3 (4.5-11.0)
[2018-08-01 06:45] LABS: ALANINE AMINOTRANSFERASE 49 U/L (12-78); ALBUMIN 1.2 G/DL (3.4-5.0); ALBUMIN/GLOBULIN RATIO 0.3 (1.1-1.5); ALKALINE PHOSPHATASE 560 IU/L (46-116); ANION GAP 7 (8-16); ASPARTATE AMINO TRANSFERASE 95 U/L (10-37); BILIRUBIN,TOTAL 0.9 MG/DL (0.1-1.0); BLOOD UREA NITROGEN 10 MG/DL (7-18); BUN/CREATININE RATIO 18.9 (6.6-38.0); CALCIUM 7.6 MG/DL (8.5-10.1); CHLORIDE 101 MMOL/L (99-107); CREATININE 0.53 MG/DL (0.40-0.90); GLUCOSE 85 MG/DL (70-104); MAGNESIUM 1.9 MG/DL (1.5-2.4); SODIUM 137 MMOL/L (135-145); TOTAL CARBON DIOXIDE 29.1 MMOL/L (24-32); TOTAL PROTEIN 5.9 G/DL (6.4-8.2); eGFR > 90 ML/MIN
[2018-08-01] MEDS: K and/or MAG REPLACEMENT MC SCH (07:13)
[2018-08-01] MEDS: pregabalin 75mg capsule PO SCH ×2 (07:28→20:15)
[2018-08-01] MEDS: furosemide 20 MG/2 ML vial IV SCH ×2 (07:28→20:14)
[2018-08-01] MEDS: levetiracetam 250mg tablet PO SCH ×2 (07:28→20:15)
[2018-08-01] MEDS: sodium chloride 1gm tablet PO SCH ×4 (07:28→20:15)
[2018-08-01] MEDS: heparin, porcine 5000 units/ml vial SQ SCH ×2 (07:29→20:15)
--- NOTE | 2018-08-01 11:18 | NUR ---
Reassessment: Pt PO increased to 100% regular/mechanical soft meals; refusing high protein shakes. LBM 2/ refusing bowel care and prune juice w/ MoM PRN per RN; RN says she educated pt that she'll require a suppository if continues to refuse and no BM. Receiving electrolyte replacement per protocol on lasix. Will continue to monitor. Rec: 1. continue mechanical soft/chopped diet per WAREHOUSE CONSULTANT 2. monitor for ONS needs 3. MMA labs per MD for elevated B12 results and neurologic status per MD approval 4. wt per rx Addendum: 08/01/18 at [address] Amended: Links added.
[2018-08-01] MEDS: High Protein Smoothie Arginine/Glut./Ca2+Bmb (Juven 19.3pkt) 240ml cup PO SCH ×2 (13:18→18:00)
--- NOTE | 2018-08-01 21:05 | NUR ---
Patient in room ORTHO 4015. I have received report from DANIEL Guy and had the opportunity to ask questions and assume patient care. Addendum: 08/01/18 at 2105 by Ricarda Patel RN Amended: Links added.
[2018-08-01 22:00] VITALS: BP 105/47
[2018-08-02 05:46] VITALS: BP 99/58
[2018-08-02] MEDS: oxyCODONE IR 5mg (immed. release) tablet PO PRN ×4 (05:52→23:44)
[2018-08-02 06:00] VITALS: BP 116/58
--- NOTE | 2018-08-02 06:00 | NUR ---
Patient in room ORTHO 4015. I have received report from Trinity SANCHEZ and had the opportunity to ask questions and assume patient care.
[2018-08-02 06:10] LABS: BASOPHILS % (AUTO) 0.5 % (0-1); EOSINOPHILS % (AUTO) 0.2 % (0-6); HEMATOCRIT 27.9 % (35.0-45.0); HEMOGLOBIN 9.7 g/dl (12.0-16.0); LYMPHOCYTES # (AUTO) 0.7 X10'3 (1.1-4.8); LYMPHOCYTES % (AUTO) 22.5 % (21-51); MEAN CORPUSCULAR HEMOGLOBIN 32.3 PG (27.0-31.0); MEAN CORPUSCULAR HGB CONC 34.9 g/dL (33.0-36.5); MEAN CORPUSCULAR VOLUME 92.3 FL (78-98); MEAN PLATELET VOLUME 8.3 FL (7.4-10.4); MONOCYTES # (AUTO) 0.1 X10'3 (0-0.9); MONOCYTES % (AUTO) 2.2 % (2-12); NEUTROPHILS # (AUTO) 2.3 X10'3 (1.8-7.7); NEUTROPHILS % (AUTO) 74.6 % (42-75); PLATELET COUNT 162 X10'3 (140-440); RED BLOOD COUNT 3.02 X10'6 (4.20-5.60); RED CELL DISTRIBUTION WIDTH 15.7 % (11.5-14.5)
--- NOTE | 2018-08-02 06:19 | NUR ---
Problems reprioritized. Patient report given, questions answered & plan of care reviewed with DANIEL Calabrese. Addendum: 08/02/18 at 0620 by Ricarda Patel RN Amended: Links added.
[2018-08-02 06:22] LABS: ALANINE AMINOTRANSFERASE 47 U/L (12-78); ALBUMIN 1.2 G/DL (3.4-5.0); ALBUMIN/GLOBULIN RATIO 0.3 (1.1-1.5); ALKALINE PHOSPHATASE 545 IU/L (46-116); ANION GAP 7 (8-16); ASPARTATE AMINO TRANSFERASE 81 U/L (10-37); BILIRUBIN,TOTAL 0.7 MG/DL (0.1-1.0); BLOOD UREA NITROGEN 10 MG/DL (7-18); BUN/CREATININE RATIO 18.5 (6.6-38.0); CALCIUM 7.6 MG/DL (8.5-10.1); CHLORIDE 101 MMOL/L (99-107); CREATININE 0.54 MG/DL (0.40-0.90); GLUCOSE 88 MG/DL (70-104); MAGNESIUM 1.7 MG/DL (1.5-2.4); POTASSIUM 3.1 MMOL/L (3.5-5.1); SODIUM 136 MMOL/L (135-145); TOTAL CARBON DIOXIDE 28.3 MMOL/L (24-32); TOTAL PROTEIN 5.9 G/DL (6.4-8.2); eGFR > 90 ML/MIN
[2018-08-02] MEDS: pregabalin 75mg capsule PO SCH ×2 (07:32→21:15)
[2018-08-02] MEDS: heparin, porcine 5000 units/ml vial SQ SCH ×2 (07:32→21:16)
[2018-08-02] MEDS: sodium chloride 1gm tablet PO SCH ×4 (07:32→21:16)
[2018-08-02] MEDS: levetiracetam 250mg tablet PO SCH ×2 (07:32→21:16)
[2018-08-02] MEDS: furosemide 20 MG/2 ML vial IV SCH ×2 (07:32→21:16)
[2018-08-02] MEDS: potassium Cl 20 mEq SR tablet PO PRN ×2 (07:32→12:40)
[2018-08-02] MEDS: High Protein Smoothie Arginine/Glut./Ca2+Bmb (Juven 19.3pkt) 240ml cup PO SCH ×3 (08:00→18:00)
[2018-08-02] MEDS: K and/or MAG REPLACEMENT MC SCH (08:00)
[2018-08-02] MEDS ORDERED: potassium Cl 20 mEq SR tablet PO PRN ×4 (08:20→21:00)
[2018-08-02] MEDS ORDERED: magnesium 4gm in 100ml NS 100 ML IV PRN ×2 (08:20→21:00)
[2018-08-02 10:00] VITALS: BP 101/59
[2018-08-02 18:00] VITALS: BP 123/50
--- NOTE | 2018-08-02 18:19 | NUR ---
Problems reprioritized. Patient report given, questions answered & plan of care reviewed with Jeannie SANCHEZ.
--- NOTE | 2018-08-02 18:30 | NUR ---
Patient in room ORTHO 4015. I have received report from DANIEL FAGAN and had the opportunity to ask questions and assume patient care.
[2018-08-02] MEDS ORDERED: magnesium 2GM in 50ml NS 50 ML IV PRN (21:00)
[2018-08-02] MEDS ORDERED: magnesium Cl slow-release 64mg tablet PO PRN (21:00)
[2018-08-02] MEDS ORDERED: potassium Cl 40MEQ/NS 500ml 500 ML IV PRN ×2 (21:00)
[2018-08-02 22:00] VITALS: BP 109/55
[2018-08-03] MEDS: oxyCODONE IR 5mg (immed. release) tablet PO PRN ×3 (05:28→18:56)
[2018-08-03 06:00] VITALS: BP 97/49
--- NOTE | 2018-08-03 06:00 | NUR ---
Patient in room ORTHO 4015. I have received report from Jeannie SANCHEZ and had the opportunity to ask questions and assume patient care.
--- NOTE | 2018-08-03 06:10 | NUR ---
Problems reprioritized. Patient report given, questions answered & plan of care reviewed with DANIEL PAIZ. Addendum: 08/03/18 at 0615 by Jeannie Tai RN REPORT TO DANIEL FAGAN
[2018-08-03 06:28] LABS: MAGNESIUM 1.6 MG/DL (1.5-2.4); POTASSIUM 3.1 MMOL/L (3.5-5.1)
[2018-08-03] MEDS: furosemide 20 MG/2 ML vial IV SCH ×2 (07:31→20:05)
[2018-08-03] MEDS: heparin, porcine 5000 units/ml vial SQ SCH ×2 (07:32→20:06)
[2018-08-03] MEDS: sodium chloride 1gm tablet PO SCH ×2 (07:32→20:06)
[2018-08-03] MEDS: pregabalin 75mg capsule PO SCH ×2 (07:32→20:06)
[2018-08-03] MEDS: levetiracetam 250mg tablet PO SCH ×2 (07:32→20:06)
[2018-08-03] MEDS ORDERED: potassium Cl oral solution 20 MEQ/15 ML PO PRN (07:50)
[2018-08-03] MEDS: K and/or MAG REPLACEMENT MC SCH (08:00)
[2018-08-03] MEDS: High Protein Smoothie Arginine/Glut./Ca2+Bmb (Juven 19.3pkt) 240ml cup PO SCH ×3 (08:00→18:56)
[2018-08-03] MEDS: potassium Cl oral solution 20 MEQ/15 ML PO PRN ×3 (09:07→18:56)
[2018-08-03 10:00] VITALS: BP 97/45
[2018-08-03] MEDS ORDERED: albumin 25% 50mL bottle 100 ML IV ONE (12:15)
--- NOTE | 2018-08-03 12:19 | NUR ---
Reassessment: Pt PO decreased to 50% avg from prior 100%. Still no BM since 07/28; received MoM PM 08/02; RD d/w RN for routine bowel care per MD approval. WBC remains low at 3.0 and receiving electrolyte replacement per protocol. Will continue to monitor. Rec: 1. continue mechanical soft/chopped diet per SAFETY ADMIN ASSISTANT 2. monitor for ONS needs 3. MMA labs per MD for elevated B12 results and neurologic status per MD approval 4. wt per rx Addendum: 08/03/18 at [address] Amended: Links added.
[2018-08-03] MEDS: potassium Cl 20 mEq SR tablet PO SCH (17:30)
[2018-08-03 18:00] VITALS: BP 101/43
--- NOTE | 2018-08-03 18:00 | NUR ---
Patient in room ORTHO 4015. I have received report from DANIEL Calabrese and had the opportunity to ask questions and assume patient care.
--- NOTE | 2018-08-03 18:00 | NUR ---
Problems reprioritized. Patient report given, questions answered & plan of care reviewed with Kari SANCHEZ.
[2018-08-03 20:21] VITALS: BP 104/52
[2018-08-03 22:00] VITALS: BP 100/44
[2018-08-04] MEDS: oxyCODONE IR 5mg (immed. release) tablet PO PRN ×3 (03:33→15:02)
[2018-08-04 06:00] VITALS: BP 100/43
--- NOTE | 2018-08-04 06:15 | NUR ---
Problems reprioritized. Patient report given, questions answered & plan of care reviewed with DANIEL Cosme.
[2018-08-04 06:44] LABS: MAGNESIUM 1.6 MG/DL (1.5-2.4); POTASSIUM 3.7 MMOL/L (3.5-5.1)
--- NOTE | 2018-08-04 06:54 | NUR ---
Patient in room ORTHO 4015. I have received report from Kari and had the opportunity to ask questions and assume patient care.
[2018-08-04] MEDS: levetiracetam 250mg tablet PO SCH (07:30)
[2018-08-04] MEDS: sodium chloride 1gm tablet PO SCH (07:30)
[2018-08-04] MEDS: heparin, porcine 5000 units/ml vial SQ SCH (07:30)
[2018-08-04] MEDS: furosemide 20 MG/2 ML vial IV SCH (07:30)
[2018-08-04] MEDS: pregabalin 75mg capsule PO SCH (07:30)
[2018-08-04] MEDS: potassium Cl 20 mEq SR tablet PO SCH (07:32)
[2018-08-04] MEDS: K and/or MAG REPLACEMENT MC SCH (08:00)
[2018-08-04] MEDS: High Protein Smoothie Arginine/Glut./Ca2+Bmb (Juven 19.3pkt) 240ml cup PO SCH ×2 (08:00→13:00)
[2018-08-04 10:00] VITALS: BP 103/35
--- NOTE | 2018-08-04 11:05 | NUR ---
SS completed & and faxed referrals for [facility] & [facility].
[2018-08-04] MEDS ORDERED: FURO-149 PO (11:31)
[2018-08-04] MEDS ORDERED: OXYC-658 PO (11:31)
[2018-08-04] MEDS ORDERED: LEVE250T PO (11:31)
[2018-08-04] MEDS ORDERED: LYR75C PO (11:31)
[2018-08-04] MEDS ORDERED: POTA20TA19 PO (11:31)
--- NOTE | 2018-08-04 14:29 | NUR ---
Scripts called in to [facility] in [place].
--- NOTE | 2018-08-04 14:53 | NUR ---
SS contacted [facility] to coordinate a post-hosp appointment for pt. Per discussion w/core cutter and reamer, a Triage Nurse will contact pt next week to schedule an appointment for her. Pt's daughter was provided w/Discharge Instructions with contact info to f/u on pt's [facility] services and info for [facility] services. Pt's d/c-in home, SS referral is closed.
--- NOTE | 2018-08-04 15:20 | NUR ---
Prescriptions, follow up appointments, diet, discharge instructions gone over with pt and daughter in detail. IV dc'd. Discharged home with daughter via wc.
== END 2018-08-04 15:20 | disposition home health service (06) | DRG 49 ==
LOC: ER 18:32 → ED HOLD 23:18 → EDBEDREQ 07-13 00:37 → ORTHO 4S 07-13 01:23
PROVIDERS: ADMIT Internal Medicine; ATTEND Family Medicine
PROC: 00JU3ZZ Inspection of Spinal Canal, Percutaneous Approach (ICD-10-PCS; principal; 2018-07-12)
PROC: 4A10X4Z Monitoring of Central Nervous Electrical Activity, External Approach (ICD-10-PCS; 2018-07-13)
PROC: 009U3ZZ Drainage of Spinal Canal, Percutaneous Approach (ICD-10-PCS; 2018-07-15)
PROC: B01B1ZZ Fluoroscopy of Spinal Cord using Low Osmolar Contrast (ICD-10-PCS; 2018-07-15)
PROC: BR30YZZ Magnetic Resonance Imaging (MRI) of Cervical Spine using Other Contrast (ICD-10-PCS; 2018-07-16)
PROC: CF141ZZ Planar Nuclear Medicine Imaging of Gallbladder using Technetium 99m (Tc-99m) (ICD-10-PCS; 2018-07-30)
DX: G61.0 Guillain-Barre syndrome (principal); E43 Unspecified severe protein-calorie malnutrition; G82.50 Quadriplegia, unspecified; J18.9 Pneumonia, unspecified organism; D72.819 Decreased white blood cell count, unspecified; E87.6 Hypokalemia; E87.70 Fluid overload, unspecified; G43.909 Migraine, unspecified, not intractable, without status migrainosus; W18.39XA Other fall on same level, initial encounter; N28.9 Disorder of kidney and ureter, unspecified; R94.01 Abnormal electroencephalogram [EEG]; G40.909 Epilepsy, unspecified, not intractable, without status epilepticus; R74.0 Nonspecific elevation of levels of transaminase and lactic acid dehydrogenase [LDH]; E87.1 Hypo-osmolality and hyponatremia; Y95 Nosocomial condition; E83.42 Hypomagnesemia; K76.9 Liver disease, unspecified; J98.11 Atelectasis; R29.6 Repeated falls; Z68.20 Body mass index [BMI] 20.0-20.9, adult; Z87.440 Personal history of urinary (tract) infections; Y93.89 Activity, other specified; Y92.89 Other specified places as the place of occurrence of the external cause; Y99.8 Other external cause status; Z88.2 Allergy status to sulfonamides; Z88.5 Allergy status to narcotic agent; Z79.899 Other long term (current) drug therapy; Z87.891 Personal history of nicotine dependence
CPT/HCPCS: 36415; 62270; 71045; 72156; 73110; 76700; 77003; 78226; 80053; 80074; 81001; 82175; 82550; 82570; 82607; 82784; 82945; 83036; 83605; 83655; 83735; 83825; 83880; 84100; 84132; 84145; 84157; 84439; 84443; 85025; 85610; 85651; 86200; 86334; 86430; 86431; 86592; 86706; 87015; 87040; 87070; 87088; 87502; 87503; 89051; 92616; 93005; 93306; 93970; 94150; 94640; 94760; 95816; 96361; 96374; 97110; 97116; 97163; 97530; 99285; A9537; A9579; G0378; J0696; J1459; J1644; J1940; J2001; J2270; J2405; J2543; J3475; J3480; J3490; J7030; P9047

== ENCOUNTER 2018-09-30 12:17 | Inpatient (IN) | payer MEDICAID ==
[~2018-09-30] VITALS: Ht 160 cm; Wt 54.5 kg
[~2018-09-30 12:17] MED LIST changes: -AZI25OT PO; -CYCL-1 PO; +FURO-149 PO; -GABA300C PO; +LEVE250T PO; +LYR75C PO; +OXYC-658 PO
[2018-09-30] MEDS ORDERED: aspirin 81mg tab.chew PO ONE ×2 (12:35→13:45)
[2018-09-30] MEDS ORDERED: ondansetron/PF 4mg/2ml inj IV ONE (12:45)
[2018-09-30] MEDS ORDERED: diltiazem 5mg/ml 5ml inj. IV ONE (12:45)
[2018-09-30] MEDS ORDERED: normal saline 1000ML IV soln IVB ONE (12:45)
--- NOTE | 2018-09-30 13:08 | NUR ---
Spencer SAAB stated to place verbal order for cardizem drip IV now per protocol. Will place order and administer per procotol.
[2018-09-30] MEDS ORDERED: diltiazem-D5W 125mg/125ml 125 ML IV SCH ×2 (13:10→14:55)
[2018-09-30 13:24] LABS: BASOPHILS % (AUTO) 0.3 % (0-1); EOSINOPHILS % (AUTO) 0.6 % (0-6); HEMATOCRIT 35.4 % (35.0-45.0); HEMOGLOBIN 11.8 g/dl (12.0-16.0); LYMPHOCYTES # (AUTO) 0.9 X10'3 (1.1-4.8); LYMPHOCYTES % (AUTO) 15.3 % (21-51); MEAN CORPUSCULAR HEMOGLOBIN 30.9 PG (27.0-31.0); MEAN CORPUSCULAR HGB CONC 33.3 g/dL (33.0-36.5); MEAN CORPUSCULAR VOLUME 92.8 FL (78-98); MEAN PLATELET VOLUME 9.5 FL (7.4-10.4); MONOCYTES # (AUTO) 0.2 X10'3 (0-0.9); MONOCYTES % (AUTO) 2.8 % (2-12); NEUTROPHILS # (AUTO) 4.7 X10'3 (1.8-7.7); PLATELET COUNT 219 X10'3 (140-440); RED BLOOD COUNT 3.81 X10'6 (4.20-5.60); RED CELL DISTRIBUTION WIDTH 16.3 % (11.5-14.5); WHITE BLOOD COUNT 5.8 X10'3 (4.5-11.0)
[2018-09-30 13:33] LABS: ALANINE AMINOTRANSFERASE 140 U/L (12-78); ALBUMIN 2.2 G/DL (3.4-5.0); ALBUMIN/GLOBULIN RATIO 0.5 (1.1-1.5); ALKALINE PHOSPHATASE 655 IU/L (46-116); ANION GAP 11 (8-16); ASPARTATE AMINO TRANSFERASE 109 U/L (10-37); BILIRUBIN,TOTAL 0.7 MG/DL (0.1-1.0); BLOOD UREA NITROGEN 25 MG/DL (7-18); BUN/CREATININE RATIO 35.2 (6.6-38.0); CALCIUM 8.8 MG/DL (8.5-10.1); CHLORIDE 105 MMOL/L (99-107); CREATININE 0.71 MG/DL (0.40-0.90); GLUCOSE 141 MG/DL (70-104); POTASSIUM 3.1 MMOL/L (3.5-5.1); SODIUM 141 MMOL/L (135-145); TOTAL CARBON DIOXIDE 24.8 MMOL/L (24-32); TOTAL PROTEIN 6.8 G/DL (6.4-8.2); eGFR 84 ML/MIN
[2018-09-30] MEDS ORDERED: PRED20TA PO (13:40)
[2018-09-30] MEDS ORDERED: BUPR1PAT2 TD (13:40)
[2018-09-30] MEDS ORDERED: POTA20TA19 PO (13:40)
[2018-09-30] MEDS ORDERED: IBUP-1985 PO (13:40)
[2018-09-30] MEDS ORDERED: PREG150C PO (13:40)
[2018-09-30 13:41] LABS: MAGNESIUM 1.7 MG/DL (1.5-2.4)
[2018-09-30] MEDS ORDERED: enoxaparin 100mg/ml syringe SUBCUT ONE (13:45)
[2018-09-30] MEDS ORDERED: ondansetron/PF 4mg/2ml inj IV PRN (14:55)
[2018-09-30] MEDS ORDERED: magnesium 4gm in 100ml NS 100 ML IV PRN (14:55)
[2018-09-30] MEDS ORDERED: acetaminophen 325mg tablet PO PRN ×2 (14:55)
[2018-09-30] MEDS ORDERED: morphine 4 MG/ML inj SYRINge IV PRN ×2 (14:55)
[2018-09-30] MEDS ORDERED: magnesium Cl slow-release 64mg tablet PO PRN (14:55)
[2018-09-30] MEDS ORDERED: HYDROcodone/acetaminophen 5mg/325mg tablet PO PRN (14:55)
[2018-09-30] MEDS ORDERED: mag hydrox/Alum hydrox/simeth 30ml oral suspension PO PRN (14:55)
[2018-09-30] MEDS ORDERED: magnesium hydroxide 30ml (MOM) UD suspension PO PRN (14:55)
[2018-09-30] MEDS ORDERED: potassium Cl 40MEQ/NS 500ml 500 ML IV PRN ×2 (14:55)
[2018-09-30] MEDS ORDERED: magnesium 2GM in 50ml NS 50 ML IV PRN (14:55)
[2018-09-30] MEDS ORDERED: potassium Cl 20 mEq SR tablet PO PRN ×2 (14:55)
[2018-09-30] MEDS: normal saline 1000ml 1,000 ML IV SCH (15:15)
--- NOTE | 2018-09-30 15:22 | NUR ---
Spoke with Dr. Grewal regarding Heart rate of 130 beats/min and blood pressure of 94/33 mmHg, cardizem at a rate of 5 mg/hr. Dr. Grewal stated to increase dose to 7 mg/hr and reassess vital signs. Will continue to monitor.
[2018-09-30] MEDS ORDERED: potassium Cl oral solution 20 MEQ/15 ML PO PRN (15:45)
--- NOTE | 2018-09-30 15:45 | NUR ---
ECHO in progress
--- NOTE | 2018-09-30 16:21 | NUR ---
Patient in room ED 5. I have received report from Brigitte SANCHEZ and had the opportunity to ask questions and assume patient care.
[2018-09-30 16:42] VITALS: BP 101/55
[2018-09-30] MEDS: HYDROcodone/acetaminophen 10/325mg tab PO PRN (16:58)
[2018-09-30 17:00] VITALS: BP 90/72
[2018-09-30 17:50] VITALS: BP 93/53
--- NOTE | 2018-09-30 18:41 | NUR ---
Admitted to room 3014B. Pt. is pleasant alert and oriented to person, place, time and situation. She was recently admitted for 45 days for paralysis [place]. Dr. Sandhu ordered liver studies in August that have not yet been done. A Flutter 90-100 on Cardizam drip, rate is at 5 ml/hr. and SBP is now 98-100. She is eating and drinking without difficulties. No cough is present. Neurological assessment is WNL.
--- NOTE | 2018-09-30 18:50 | NUR ---
Problems reprioritized. Patient report given, questions answered & plan of care reviewed with Ricarda SANCHEZ and Jaspreet SANCHEZ. .
[2018-09-30 19:00] VITALS: BP 121/75
[2018-09-30] MEDS ORDERED: FURO-149 PO (19:19)
[2018-09-30] MEDS ORDERED: LEVE500T PO (19:19)
--- NOTE | 2018-09-30 19:33 | NUR ---
Patient in room PCU 3014. I have received report from Santa SANCHEZ and had the opportunity to ask questions and assume patient care.
[2018-09-30] MEDS ORDERED: non-formulary drug (Buprenorphine (Butrans) 1 PATCH) TD SCH (19:55)
[2018-09-30] MEDS ORDERED: non-formulary drug (Levetiracetam 1 TAB) PO SCH (20:00)
--- NOTE | 2018-09-30 20:00 | NUR ---
Dr. Grewal notified of pt's persistent low SBP, high 80s to mid 90s, HR in the 90s, atrial flutter, IV Cardizem dose, and IV Cardizem protocol. Orders given to this nurse. Dr. Grewal also notified of completion of Med Req review. Pt. started on PO Cardizem now.
[2018-09-30] MEDS: heparin, porcine 5000 units/ml vial SQ SCH (20:12)
[2018-09-30] MEDS: levetiracetam 250mg tablet PO SCH (20:23)
[2018-09-30] MEDS: diltiazem 30mg tablet PO SCH (20:23)
[2018-09-30] MEDS: potassium Cl oral solution 20 MEQ/15 ML PO PRN (20:29)
[2018-09-30 21:00] VITALS: BP 121/71
[2018-09-30] MEDS ORDERED: temazepam 15mg capsule PO PRN (21:00)
[2018-09-30 23:00] VITALS: BP 99/63
--- NOTE | 2018-09-30 23:00 | NUR ---
Heart rate increased to 117/min.
[2018-10-01] VITALS (14 sets, daily range): BP systolic 86–133; BP diastolic 45–74
[2018-10-01] MEDS: potassium Cl oral solution 20 MEQ/15 ML PO PRN (00:42)
[2018-10-01] MEDS: normal saline 1000ml 1,000 ML IV SCH (01:17)
[2018-10-01] MEDS: HYDROcodone/acetaminophen 10/325mg tab PO PRN (01:33)
--- NOTE | 2018-10-01 02:00 | NUR ---
notified of increased HR in this pt; 140s, 150s. Orders given. PO Cardizem admin as ord., IV Cardizem started at 5mg/HR. Pt's breathing appears labored, though O2 Sats in the mid 90s.
[2018-10-01] MEDS: diltiazem 30mg tablet PO SCH (02:13)
[2018-10-01] MEDS ORDERED: diltiazem 5mg/ml 5ml inj. IV ONE (02:20)
[2018-10-01] MEDS ORDERED: furosemide 20 MG/2 ML vial IV ONE (03:15)
[2018-10-01] MEDS ORDERED: magnesium 2GM in 50ml NS 50 ML IV ONE (03:35)
[2018-10-01 03:59] LABS: BASOPHILS % (AUTO) 0.5 % (0-1); EOSINOPHILS % (AUTO) 0.6 % (0-6); HEMATOCRIT 32.4 % (35.0-45.0); HEMOGLOBIN 10.6 g/dl (12.0-16.0); LYMPHOCYTES # (AUTO) 0.5 X10'3 (1.1-4.8); LYMPHOCYTES % (AUTO) 9.7 % (21-51); MEAN CORPUSCULAR HEMOGLOBIN 30.5 PG (27.0-31.0); MEAN CORPUSCULAR HGB CONC 32.7 g/dL (33.0-36.5); MEAN PLATELET VOLUME 9.3 FL (7.4-10.4); MONOCYTES # (AUTO) 0.2 X10'3 (0-0.9); MONOCYTES % (AUTO) 3.1 % (2-12); NEUTROPHILS # (AUTO) 4.9 X10'3 (1.8-7.7); NEUTROPHILS % (AUTO) 86.1 % (42-75); PLATELET COUNT 183 X10'3 (140-440); RED BLOOD COUNT 3.48 X10'6 (4.20-5.60); RED CELL DISTRIBUTION WIDTH 15.7 % (11.5-14.5); WHITE BLOOD COUNT 5.6 X10'3 (4.5-11.0)
[2018-10-01 04:01] LABS: ALANINE AMINOTRANSFERASE 102 U/L (12-78); ALBUMIN/GLOBULIN RATIO 0.5 (1.1-1.5); ALKALINE PHOSPHATASE 537 IU/L (46-116); ANION GAP 7 (8-16); ASPARTATE AMINO TRANSFERASE 69 U/L (10-37); BILIRUBIN,TOTAL 0.6 MG/DL (0.1-1.0); BLOOD UREA NITROGEN 21 MG/DL (7-18); CALCIUM 8.3 MG/DL (8.5-10.1); CHLORIDE 107 MMOL/L (99-107); GLUCOSE 107 MG/DL (70-104); POTASSIUM 4.2 MMOL/L (3.5-5.1); SODIUM 138 MMOL/L (135-145); TOTAL CARBON DIOXIDE 23.9 MMOL/L (24-32); TOTAL PROTEIN 6.2 G/DL (6.4-8.2); eGFR 85 ML/MIN
[2018-10-01 04:10] LABS: CHOL/HDL RATIO 5.7 (0.00-4.99); CHOLESTEROL 249 MG/DL (0-200); HDL CHOLESTEROL 44 MG/DL (35-60); LDL CHOLESTEROL 152 MG/DL (50-100); MAGNESIUM 1.6 MG/DL (1.5-2.4); TRIGLYCERIDES 128 MG/DL (20-135); TROPONIN I 0.08 NG/ML (0.0-0.05)
--- NOTE | 2018-10-01 05:00 | NUR ---
Pt's HR remains elevated in 160s-170s, remains in A flutter. MD notified. Orders given. Cardizem increased to 10mg/HR, IV Lasix admin. f/650 mls U/O, mirza catheter placed, Mag 2mg IV infusing, blood f/am labs sent and results reported to MD. Troponin 0.08 reported and repeat Troponin ord. f/6HRS to be drawn at 0930. O2 to 1L/NC, saturating in mid to low 90s now.
[2018-10-01] MEDS: diltiazem-D5W 125mg/125ml 125 ML IV SCH ×3 (05:05→23:52)
--- NOTE | 2018-10-01 06:40 | NUR ---
Problems reprioritized. Patient report given, questions answered & plan of care reviewed with Diana SANCHEZ.
--- NOTE | 2018-10-01 06:58 | NUR ---
I have received report from Ricarda SANCHEZ, I was able to ask questions and assume care of this patient
--- NOTE | 2018-10-01 07:23 | NUR ---
Patient in room PCU 3014. I have received report from DANIEL MCKEON and had the opportunity to ask questions and assume patient care.
[2018-10-01] MEDS: K and/or MAG REPLACEMENT MC SCH (08:00)
[2018-10-01] MEDS ORDERED: digoxin 250mcg/ml 2ml ampule IV ONE (08:45)
[2018-10-01] MEDS: CefTRIAXone 2gm/D5W 50ml 50 ML IV SCH (08:59)
[2018-10-01] MEDS: levetiracetam 250mg tablet PO SCH ×2 (09:00→19:30)
[2018-10-01] MEDS: pantoprazole 40mg Tablet.DR PO SCH (09:00)
[2018-10-01] MEDS: heparin, porcine 5000 units/ml vial SQ SCH (09:01)
[2018-10-01] MEDS ORDERED: aspirin 81mg tablet.DR PO SCH (11:30)
[2018-10-01] MEDS ORDERED: nitroGLYCERIN 0.4mg SUBLingual tab SL PRN (11:30)
[2018-10-01] MEDS: methylPREDNISolone sod succ 125mg/2ml vial IV SCH ×2 (12:33→16:57)
--- NOTE | 2018-10-01 12:42 | NUR ---
patient left floor for procedure at 11:38, assisted by Diana SANCHEZ and myself
--- NOTE | 2018-10-01 12:43 | NUR ---
Patient returned to floor at 12:25 from imaging
[2018-10-01 13:26] LABS: TROPONIN I 0.05 NG/ML (0.0-0.05)
[2018-10-01] MEDS: ipratropium 0.5 MG/2.5ML nebule IH SCH ×4 (13:31→23:50)
--- NOTE | 2018-10-01 18:15 | NUR ---
Patient in room PCU 3014. I have received report from Diana SANCHEZ and had the opportunity to ask questions and assume patient care.
--- NOTE | 2018-10-01 18:30 | NUR ---
Problems reprioritized. Patient report given, questions answered & plan of care reviewed with prasad martinez.
--- NOTE | 2018-10-01 18:31 | NUR ---
Student documentation: I have reviewed and agree with all interventions, assessments performed and documented by trevor.
--- NOTE | 2018-10-01 18:32 | NUR ---
Student Medication Administration: For this medication-pass time frame, all medication were reviewed, dispensed, administered and documented per hospital policy by Nancy.
[2018-10-01] MEDS: lactobacillus rhamnosus 10,000 MMU CELLS/CAPSULE PO SCH (19:30)
[2018-10-01] MEDS: pregabalin 75mg capsule PO SCH (19:30)
[2018-10-01] MEDS: digoxin 250mcg/ml 2ml ampule IV SCH (19:32)
[2018-10-01] MEDS ORDERED: enoxaparin 40mg/0.4ml syringe SQ SCH (20:00)
[2018-10-01] MEDS ORDERED: enoxaparin 30mg/0.3ml syringe SUBCUT SCH (20:00)
--- NOTE | 2018-10-01 21:04 | NUR ---
PAGER ID: [phone] MESSAGE: [id number] Anushka Doe Pt converted to SR from Aflutter. Cardizem drip going at 10ml/hr. Continue drip or start PO? Thanks! Diane SANCHEZ #[phone]
[2018-10-02] VITALS (8 sets, daily range): BP systolic 111–127; BP diastolic 54–74
[2018-10-02] MEDS: methylPREDNISolone sod succ 125mg/2ml vial IV SCH ×3 (00:23→16:47)
--- NOTE | 2018-10-02 01:34 | NUR ---
PAGER ID: [phone] MESSAGE: [id number] Anushka Doe Pt converted to SR earlier from aflutter, has a 250mcg push of Digoxin ordered for 0200 with no parameters, can I get parameters please. Cardizem drip still going at 10mls/hr. Diane SANCHEZ #[phone] Addendum: 10/02/18 at 0153 by Diane Houston RN Orders to hold 2nd Digoxin push. Cardizem PO to be started and drip to be turned off in an hour.
[2018-10-02] MEDS: digoxin 250mcg/ml 2ml ampule IV SCH (01:44)
[2018-10-02] MEDS: diltiazem 30mg tablet PO SCH ×4 (01:49→19:27)
[2018-10-02] MEDS ORDERED: diltiazem CD 120mg capsule (once-daily) PO SCH (02:00)
[2018-10-02] MEDS: ipratropium 0.5 MG/2.5ML nebule IH SCH ×5 (03:21→23:54)
--- NOTE | 2018-10-02 06:20 | NUR ---
Problems reprioritized. Patient report given, questions answered & plan of care reviewed with Lata SANCHEZ.
--- NOTE | 2018-10-02 06:25 | NUR ---
Patient in room PCU 3014. I have received report from DANIEL Contreras and had the opportunity to ask questions and assume patient care.
[2018-10-02 06:44] LABS: BASOPHILS % (AUTO) 0.1 % (0-1); EOSINOPHILS % (AUTO) 0.1 % (0-6); HEMATOCRIT 31.9 % (35.0-45.0); HEMOGLOBIN 10.6 g/dl (12.0-16.0); LYMPHOCYTES # (AUTO) 0.3 X10'3 (1.1-4.8); LYMPHOCYTES % (AUTO) 12.3 % (21-51); MEAN CORPUSCULAR HEMOGLOBIN 30.8 PG (27.0-31.0); MEAN CORPUSCULAR HGB CONC 33.1 g/dL (33.0-36.5); MEAN CORPUSCULAR VOLUME 93.1 FL (78-98); MEAN PLATELET VOLUME 9.5 FL (7.4-10.4); MONOCYTES # (AUTO) 0.1 X10'3 (0-0.9); MONOCYTES % (AUTO) 2.7 % (2-12); NEUTROPHILS # (AUTO) 2.2 X10'3 (1.8-7.7); NEUTROPHILS % (AUTO) 84.8 % (42-75); PLATELET COUNT 150 X10'3 (140-440); RED BLOOD COUNT 3.43 X10'6 (4.20-5.60); RED CELL DISTRIBUTION WIDTH 15.2 % (11.5-14.5); WHITE BLOOD COUNT 2.6 X10'3 (4.5-11.0)
[2018-10-02] MEDS: CefTRIAXone 2gm/D5W 50ml 50 ML IV SCH (07:12)
[2018-10-02] MEDS: levetiracetam 250mg tablet PO SCH ×2 (07:13→19:26)
[2018-10-02] MEDS: lactobacillus rhamnosus 10,000 MMU CELLS/CAPSULE PO SCH ×2 (07:16→19:26)
[2018-10-02] MEDS: pregabalin 75mg capsule PO SCH ×2 (07:16→19:26)
[2018-10-02] MEDS: pantoprazole 40mg Tablet.DR PO SCH (07:16)
[2018-10-02 07:17] LABS: ANISOCYTOSIS 1+; PLATELET ESTIMATE NORMAL; TOTAL CELLS COUNTED 100
[2018-10-02 07:24] LABS: ALANINE AMINOTRANSFERASE 77 U/L (12-78); ALBUMIN 2.1 G/DL (3.4-5.0); ALBUMIN/GLOBULIN RATIO 0.5 (1.1-1.5); ALKALINE PHOSPHATASE 485 IU/L (46-116); ANION GAP 12 (8-16); ASPARTATE AMINO TRANSFERASE 47 U/L (10-37); BILIRUBIN,TOTAL 0.4 MG/DL (0.1-1.0); BLOOD UREA NITROGEN 20 MG/DL (7-18); BUN/CREATININE RATIO 30.8 (6.6-38.0); CALCIUM 8.6 MG/DL (8.5-10.1); CHLORIDE 104 MMOL/L (99-107); CREATININE 0.65 MG/DL (0.40-0.90); GLUCOSE 172 MG/DL (70-104); MAGNESIUM 2.4 MG/DL (1.5-2.4); SODIUM 138 MMOL/L (135-145); TOTAL PROTEIN 6.7 G/DL (6.4-8.2); eGFR > 90 ML/MIN
[2018-10-02 07:26] LABS: POTASSIUM 4.3 MMOL/L (3.5-5.1)
[2018-10-02] MEDS: K and/or MAG REPLACEMENT MC SCH (08:00)
[2018-10-02] MEDS ORDERED: digoxin 125mcg (0.125mg) tablet PO SCH (08:00)
--- NOTE | 2018-10-02 08:45 | NUR ---
Dr. Contreras at bedside, orders received.
[2018-10-02] MEDS ORDERED: LIDOcaine 1%/PF 5ML 10 MG/ML VIAL ONE (09:10)
--- NOTE | 2018-10-02 09:37 | NUR ---
Paged Dr. Contreras re thoracentesis. PAGER ID: [phone] MESSAGE: Pt Anushka Doe in 3014B: thora NOT recommended, no fluid found. Pt requesting Lasix for edema. Thanks! Lata SANCHEZ [phone]
--- NOTE | 2018-10-02 10:31 | NUR ---
Educated pt on need to discontinue mirza catheter to reduce chance of infection. Pt refused to have mirza removed, stating "I'm getting a dose of Lasix and you can take it out tomorrow". Pt educated further on importance of removing mirza catheter, including pt's ability to get up to BSC. Pt continued to decline removal. Will continue to closely monitor for S&S of infection & will continue to educate pt on neccesity of mirza removal.
[2018-10-02] MEDS ORDERED: potassium chloride 10mEq CAPSULE.SA PO ONE (10:40)
[2018-10-02] MEDS ORDERED: furosemide 20 MG/2 ML vial IV ONE (10:40)
[2018-10-02] MEDS ORDERED: potassium chloride 10mEq ER tablet PO ONE (11:05)
--- NOTE | 2018-10-02 18:03 | NUR ---
Student documentation: I have reviewed and agree with all interventions, assessments performed and documented by SN Ce.
--- NOTE | 2018-10-02 18:04 | NUR ---
Student Medication Administration: For this medication-pass time frame, all medication were reviewed, dispensed, administered and documented per hospital policy by SN Ce.
--- NOTE | 2018-10-02 18:23 | NUR ---
Problems reprioritized. Patient report given, questions answered & plan of care reviewed with DANIEL Contreras.
--- NOTE | 2018-10-02 18:25 | NUR ---
Patient in room PCU 3014. I have received report from Lata SANCHEZ and had the opportunity to ask questions and assume patient care.
[2018-10-02] MEDS: furosemide 20 MG/2 ML vial IV SCH (19:28)
[2018-10-03 01:05] VITALS: BP 117/55
[2018-10-03] MEDS: methylPREDNISolone sod succ 125mg/2ml vial IV SCH ×2 (01:05→08:05)
[2018-10-03] MEDS: diltiazem 30mg tablet PO SCH ×4 (01:05→20:01)
[2018-10-03] MEDS: ipratropium 0.5 MG/2.5ML nebule IH SCH ×6 (03:44→23:45)
[2018-10-03 06:03] LABS: BASOPHILS % (AUTO) 0.2 % (0-1); EOSINOPHILS % (AUTO) 0 % (0-6); HEMATOCRIT 29.2 % (35.0-45.0); HEMOGLOBIN 9.9 g/dl (12.0-16.0); LYMPHOCYTES # (AUTO) 0.3 X10'3 (1.1-4.8); LYMPHOCYTES % (AUTO) 5.2 % (21-51); MEAN CORPUSCULAR HEMOGLOBIN 31.2 PG (27.0-31.0); MEAN CORPUSCULAR VOLUME 91.7 FL (78-98); MEAN PLATELET VOLUME 9.5 FL (7.4-10.4); MONOCYTES # (AUTO) 0.2 X10'3 (0-0.9); MONOCYTES % (AUTO) 3.1 % (2-12); NEUTROPHILS # (AUTO) 5.7 X10'3 (1.8-7.7); NEUTROPHILS % (AUTO) 91.5 % (42-75); PLATELET COUNT 159 X10'3 (140-440); RED BLOOD COUNT 3.18 X10'6 (4.20-5.60); RED CELL DISTRIBUTION WIDTH 15.1 % (11.5-14.5); WHITE BLOOD COUNT 6.3 X10'3 (4.5-11.0)
[2018-10-03 06:10] LABS: ALANINE AMINOTRANSFERASE 65 U/L (12-78); ALBUMIN 2.1 G/DL (3.4-5.0); ALBUMIN/GLOBULIN RATIO 0.5 (1.1-1.5); ALKALINE PHOSPHATASE 435 IU/L (46-116); ANION GAP 6 (8-16); ASPARTATE AMINO TRANSFERASE 34 U/L (10-37); BILIRUBIN,TOTAL 0.4 MG/DL (0.1-1.0); BLOOD UREA NITROGEN 34 MG/DL (7-18); BUN/CREATININE RATIO 35.8 (6.6-38.0); CALCIUM 8.7 MG/DL (8.5-10.1); CHLORIDE 106 MMOL/L (99-107); CREATININE 0.95 MG/DL (0.40-0.90); GLUCOSE 175 MG/DL (70-104); MAGNESIUM 2.2 MG/DL (1.5-2.4); POTASSIUM 3.6 MMOL/L (3.5-5.1); SODIUM 141 MMOL/L (135-145); TOTAL CARBON DIOXIDE 29.2 MMOL/L (24-32); TOTAL PROTEIN 6.5 G/DL (6.4-8.2); eGFR 60 ML/MIN
--- NOTE | 2018-10-03 06:22 | NUR ---
Problems reprioritized. Patient report given, questions answered & plan of care reviewed with Evangelina SANCHEZ.
--- NOTE | 2018-10-03 06:24 | NUR ---
Patient in room PCU 3014. I have received report from Diane SANCHEZ and had the opportunity to ask questions and assume patient care.
[2018-10-03 07:00] VITALS: BP 127/69
[2018-10-03] MEDS: K and/or MAG REPLACEMENT MC SCH (08:00)
[2018-10-03] MEDS: pantoprazole 40mg Tablet.DR PO SCH (08:02)
[2018-10-03] MEDS: lactobacillus rhamnosus 10,000 MMU CELLS/CAPSULE PO SCH ×2 (08:02→20:00)
[2018-10-03] MEDS: pregabalin 75mg capsule PO SCH ×2 (08:03→20:00)
[2018-10-03] MEDS: levetiracetam 250mg tablet PO SCH ×2 (08:03→19:59)
[2018-10-03] MEDS: furosemide 20 MG/2 ML vial IV SCH ×2 (08:04→20:00)
[2018-10-03] MEDS: CefTRIAXone 2gm/D5W 50ml 50 ML IV SCH (08:05)
[2018-10-03 11:00] VITALS: BP 105/64
[2018-10-03 13:59] LABS: C-REACTIVE PROTEIN 1.54 MG/DL (0.0-0.5)
[2018-10-03 14:06] LABS: RHEUM FACTOR QUAL REFLEX TITER NEGATIVE (Neg)
[2018-10-03] MEDS: aspirin 325mg tablet, delayed-release (Ecotrin) PO SCH (14:07)
[2018-10-03 15:00] VITALS: BP 111/89
[2018-10-03] MEDS: methylPREDNISolone sod succ/PF 40mg inj. IV SCH ×2 (17:59→23:35)
[2018-10-03 18:00] VITALS: BP 123/52
--- NOTE | 2018-10-03 18:07 | NUR ---
[place] documentation: I have reviewed and agree with all interventions, assessments performed and documented by Marisela SANHCEZ. [place] Medication Administration: For this medication-pass time frame, all medication were reviewed, dispensed, administered and documented per hospital policy by Marisela SANCHEZ.
--- NOTE | 2018-10-03 18:20 | NUR ---
Problems reprioritized. Patient report given, questions answered & plan of care reviewed with Pretty SANCHEZ and Abhinav RN. Bedside report complete, patient stable at transfer of care.
--- NOTE | 2018-10-03 18:30 | NUR ---
Patient in room PCU 3014. I have received report from Evangelina and had the opportunity to ask questions and assume patient care.
--- NOTE | 2018-10-03 18:30 | NUR ---
Patient in room PCU 3014. I have received report from [place] sanchez and had the opportunity to ask questions and assume patient care WITH MEME SANCHEZ.
[2018-10-03 22:00] VITALS: BP 139/58
[2018-10-04 02:00] VITALS: BP 139/61
[2018-10-04] MEDS: diltiazem 30mg tablet PO SCH ×3 (02:14→14:04)
[2018-10-04] MEDS: ipratropium 0.5 MG/2.5ML nebule IH SCH ×4 (03:30→15:02)
--- NOTE | 2018-10-04 06:23 | NUR ---
Problems reprioritized. Patient report given, questions answered & plan of care reviewed with Eda.
--- NOTE | 2018-10-04 06:25 | NUR ---
Problems reprioritized. Patient report given, questions answered & plan of care reviewed with Luke sanchez. oRIENTEE documentation: I have reviewed and agree with all interventions, assessments performed and documented by MEME SANCHEZ.
--- NOTE | 2018-10-04 06:31 | NUR ---
Patient in room PCU 3014. I have received report from Pretty SANCHEZ/Sunday RN and had the opportunity to ask questions and assume patient care.
[2018-10-04 07:00] VITALS: BP 163/63
[2018-10-04 07:23] LABS: BASOPHILS % (AUTO) 0.1 % (0-1); EOSINOPHILS % (AUTO) 0 % (0-6); HEMATOCRIT 31.1 % (35.0-45.0); HEMOGLOBIN 10.1 g/dl (12.0-16.0); LYMPHOCYTES # (AUTO) 0.3 X10'3 (1.1-4.8); LYMPHOCYTES % (AUTO) 7.6 % (21-51); MEAN CORPUSCULAR HEMOGLOBIN 30.2 PG (27.0-31.0); MEAN CORPUSCULAR HGB CONC 32.5 g/dL (33.0-36.5); MEAN PLATELET VOLUME 9.2 FL (7.4-10.4); MONOCYTES # (AUTO) 0.2 X10'3 (0-0.9); MONOCYTES % (AUTO) 4.9 % (2-12); NEUTROPHILS # (AUTO) 3.3 X10'3 (1.8-7.7); NEUTROPHILS % (AUTO) 87.4 % (42-75); PLATELET COUNT 145 X10'3 (140-440); RED BLOOD COUNT 3.34 X10'6 (4.20-5.60); RED CELL DISTRIBUTION WIDTH 14.7 % (11.5-14.5); WHITE BLOOD COUNT 3.8 X10'3 (4.5-11.0)
[2018-10-04 07:40] LABS: ALANINE AMINOTRANSFERASE 84 U/L (12-78); ALBUMIN 2.1 G/DL (3.4-5.0); ALBUMIN/GLOBULIN RATIO 0.5 (1.1-1.5); ALKALINE PHOSPHATASE 481 IU/L (46-116); ANION GAP 7 (8-16); ASPARTATE AMINO TRANSFERASE 58 U/L (10-37); BILIRUBIN,TOTAL 0.4 MG/DL (0.1-1.0); BLOOD UREA NITROGEN 34 MG/DL (7-18); BUN/CREATININE RATIO 42.5 (6.6-38.0); CALCIUM 8.5 MG/DL (8.5-10.1); CHLORIDE 104 MMOL/L (99-107); GLUCOSE 174 MG/DL (70-104); MAGNESIUM 1.9 MG/DL (1.5-2.4); POTASSIUM 3.4 MMOL/L (3.5-5.1); SODIUM 142 MMOL/L (135-145); TOTAL CARBON DIOXIDE 30.9 MMOL/L (24-32); TOTAL PROTEIN 6.4 G/DL (6.4-8.2); eGFR 73 ML/MIN
[2018-10-04] MEDS: K and/or MAG REPLACEMENT MC SCH (08:00)
[2018-10-04] MEDS: pantoprazole 40mg Tablet.DR PO SCH (08:03)
[2018-10-04] MEDS: CefTRIAXone 2gm/D5W 50ml 50 ML IV SCH (08:04)
[2018-10-04] MEDS: aspirin 325mg tablet, delayed-release (Ecotrin) PO SCH (08:04)
[2018-10-04] MEDS: levetiracetam 250mg tablet PO SCH (08:04)
[2018-10-04] MEDS: furosemide 20 MG/2 ML vial IV SCH (08:04)
[2018-10-04] MEDS: methylPREDNISolone sod succ/PF 40mg inj. IV SCH ×2 (08:04→16:06)
[2018-10-04] MEDS: lactobacillus rhamnosus 10,000 MMU CELLS/CAPSULE PO SCH (08:04)
[2018-10-04] MEDS: pregabalin 75mg capsule PO SCH (08:04)
[2018-10-04] MEDS ORDERED: ASPI-41 PO (10:50)
[2018-10-04] MEDS ORDERED: DILT180C95 PO (10:52)
--- NOTE | 2018-10-04 10:52 | NUR ---
Per Dr. Bradley, D/C and remove mirza catheter. If patient does not urinate on their own within 2 hours notify
[2018-10-04] MEDS ORDERED: ALBU8.5H8 IH (10:53)
[2018-10-04 11:00] VITALS: BP 132/60
--- NOTE | 2018-10-04 11:05 | NUR ---
Removed mirza with no issues, will monitor for patient to urinate within the next [address] Bradley.
--- NOTE | 2018-10-04 17:31 | NUR ---
Pt discharged home at 1645. Patient discharge education packet reviewed before signing and sent along with all patient belongings home with patient. Telemetry monitoring and PIV removed with cannula intact before discharge. Pt was stable at discharge and was wheeled down by staff and left with family via private vehicle home.
[2018-10-07] MEDS ORDERED: BUPRENORPHINE TP SCH (09:00)
== END 2018-10-04 16:51 | disposition home health service (06) | DRG 139 ==
LOC: ER 12:17 → ED HOLD 14:53 → PCU 3S 16:30
PROVIDERS: ADMIT Internal Medicine; ATTEND Internal Medicine
DX: J18.9 Pneumonia, unspecified organism (principal); I50.31 Acute diastolic (congestive) heart failure; G61.0 Guillain-Barre syndrome; I31.3 Pericardial effusion (noninflammatory); I48.91 Unspecified atrial fibrillation; E87.6 Hypokalemia; G40.909 Epilepsy, unspecified, not intractable, without status epilepticus; J44.0 Chronic obstructive pulmonary disease with (acute) lower respiratory infection; I48.92 Unspecified atrial flutter; J44.1 Chronic obstructive pulmonary disease with (acute) exacerbation; K21.9 Gastro-esophageal reflux disease without esophagitis; K74.60 Unspecified cirrhosis of liver; G43.909 Migraine, unspecified, not intractable, without status migrainosus; R74.8 Abnormal levels of other serum enzymes; R94.5 Abnormal results of liver function studies; G89.4 Chronic pain syndrome; Z79.899 Other long term (current) drug therapy; Z88.6 Allergy status to analgesic agent; Z88.1 Allergy status to other antibiotic agents; Z88.2 Allergy status to sulfonamides; Z87.891 Personal history of nicotine dependence; Z79.82 Long term (current) use of aspirin; Z80.42 Family history of malignant neoplasm of prostate; Z82.49 Family history of ischemic heart disease and other diseases of the circulatory system; Z71.6 Tobacco abuse counseling
CPT/HCPCS: 36415; 71045; 71250; 76604; 80053; 80061; 83605; 83735; 83880; 84439; 84443; 84484; 85025; 85651; 86038; 86140; 86430; 87040; 87070; 93005; 93306; 94640; 94760; 96365; 96375; 96376; 97116; 97162; 99291; G0378; J0696; J1160; J1644; J1650; J1940; J2001; J2405; J2920; J2930; J3475; J3490; J7030

== ENCOUNTER 2019-01-11 08:21 | Inpatient (IN) | payer MEDICAID ==
[~2019-01-11] VITALS: Ht 160 cm; Wt 70.0 kg
[~2019-01-11 08:21] MED LIST changes: +ALBU2.5V7 NEB; +ASPI-845 PO; +BUPR1PAT TOP; +DILT180C53 PO; +FAMO20TA8 PO; -FURO-149 PO; +FURO40TA4 PO; +HEPA500017 SQ; +IPRA3AMP9 NEB; +KEP500T PO; +MAGN64TA10 PO; +NALO0.4V13 IV; -OXYC-658 PO; +POTA20TA19 PO; +PRED20TA PO
[2019-01-11] MEDS ORDERED: piperacillin/tazo 3.375gm/50ml 50 ML IV ONE (09:00)
[2019-01-11] MEDS ORDERED: vancomycin/NS 1 GM ADD-VANTAGE 250 ML IV ONE (09:00)
[2019-01-11] MEDS ORDERED: normal saline 1000ML IV soln IV ONE (09:00)
[2019-01-11] MEDS ORDERED: TETanus/Pertussis (Acell)/Diphther VAC/PF (Tdap-Adult) 0.5ml syringe IM ONE (09:30)
[2019-01-11] MEDS ORDERED: LIDOcaine 1% w/epiNEPHrine 1:200,000 30ml vial IM ONE (09:30)
[2019-01-11 09:35] LABS: BASOPHILS % (AUTO) 0.4 % (0-1); EOSINOPHILS % (AUTO) 0 % (0-6); HEMATOCRIT 33.3 % (35.0-45.0); HEMOGLOBIN 10.9 g/dl (12.0-16.0); LYMPHOCYTES # (AUTO) 1.4 X10'3 (1.1-4.8); LYMPHOCYTES % (AUTO) 11.3 % (21-51); MEAN CORPUSCULAR HEMOGLOBIN 27.2 PG (27.0-31.0); MEAN CORPUSCULAR HGB CONC 32.6 g/dL (33.0-36.5); MEAN CORPUSCULAR VOLUME 83.4 FL (78-98); MEAN PLATELET VOLUME 8.7 FL (7.4-10.4); MONOCYTES # (AUTO) 0.7 X10'3 (0-0.9); MONOCYTES % (AUTO) 5.4 % (2-12); NEUTROPHILS # (AUTO) 10.1 X10'3 (1.8-7.7); NEUTROPHILS % (AUTO) 82.9 % (42-75); PLATELET COUNT 138 X10'3 (140-440); RED BLOOD COUNT 3.99 X10'6 (4.20-5.60); RED CELL DISTRIBUTION WIDTH 16.9 % (11.5-14.5); WHITE BLOOD COUNT 12.2 X10'3 (4.5-11.0)
[2019-01-11 09:47] LABS: ALANINE AMINOTRANSFERASE 144 U/L (12-78); ALBUMIN 2.3 G/DL (3.4-5.0); ALBUMIN/GLOBULIN RATIO 0.6 (1.1-1.5); ALKALINE PHOSPHATASE 613 IU/L (46-116); ANION GAP 10 (8-16); ASPARTATE AMINO TRANSFERASE 81 U/L (10-37); BILIRUBIN,TOTAL 0.8 MG/DL (0.1-1.0); BLOOD UREA NITROGEN 26 MG/DL (7-18); BUN/CREATININE RATIO 32.1 (6.6-38.0); CALCIUM 8.2 MG/DL (8.5-10.1); CHLORIDE 105 MMOL/L (99-107); CREATININE 0.81 MG/DL (0.40-0.90); GLUCOSE 116 MG/DL (70-104); MAGNESIUM 1.4 MG/DL (1.5-2.4); SODIUM 137 MMOL/L (135-145); TOTAL CARBON DIOXIDE 21.7 MMOL/L (24-32); TOTAL PROTEIN 6.3 G/DL (6.4-8.2); eGFR 72 ML/MIN
[2019-01-11 09:49] LABS: POTASSIUM 2.9 MMOL/L (3.5-5.1)
[2019-01-11] MEDS ORDERED: potassium Cl 10 mEq/100mL bag IV ONE (09:50)
[2019-01-11] MEDS ORDERED: potassium Cl 20 mEq SR tablet PO ONE (09:50)
[2019-01-11 09:56] LABS: PARTIAL THROMBOPLASTIN TIME 22 SECONDS (22-32)
[2019-01-11 10:32] LABS: CLARITY,URINE CLOUDY (Clear); COLOR,URINE YELLOW (Yellow); GLUCOSE, URINE 250 mg/dl (Neg); KETONES,URINE NEGATIVE (Neg); LEUKOCYTE ESTERASE ,URINE TRACE (Neg); NITRITES, URINE POSITIVE (Neg); OCCULT BLOOD,URINE MODERATE (Neg); PH,URINE 5.5 (4.8-8.0); PROTEIN,URINE TRACE mg/dl (Neg); UROBILINOGEN,URINE 0.2 E.U/dL (0.2-1.0)
[2019-01-11 10:33] LABS: UA COLLECTION TYPE STRAIGHT CATH
[2019-01-11 10:38] LABS: BACTERIA,URINE 3+ /HPF (Neg); SQUAMOUS EPITHELIAL CELL,UR MANY /LPF (FEW)
[2019-01-11 10:40] LABS: RBC,URINE 0-2 /HPF (0-2); RENAL CELLS, URINE MODERATE /HPF; TRANSITIONAL EPI CELLS,URINE FEW /HPF; WBC CLUMPS,URINE MODERATE /HPF (NEGATIVE)
[2019-01-11] MEDS ORDERED: HYDROcodone/acetaminophen 10/325mg tab PO ONE (11:40)
[2019-01-11] MEDS ORDERED: acetaminophen 325mg tablet PO ONE (11:50)
[2019-01-11] MEDS ORDERED: PRED20TA PO (12:31)
[2019-01-11] MEDS ORDERED: MUPI1OIN5 BOTHNARES (12:31)
[2019-01-11] MEDS ORDERED: OMEP20CA11 PO (12:31)
[2019-01-11] MEDS ORDERED: LEVO125T PO (12:31)
[2019-01-11] MEDS ORDERED: DOCU100C41 PO (12:31)
[2019-01-11] MEDS ORDERED: docusate sod 100mg capsule PO PRN (12:40)
[2019-01-11] MEDS ORDERED: potassium CL 10mEq/100ml bag 100 ML IV PRN ×2 (12:40)
[2019-01-11] MEDS ORDERED: acetaminophen 650mg rectal suppository RC PRN (12:40)
[2019-01-11] MEDS ORDERED: mag hydrox/Alum hydrox/simeth 30ml oral suspension PO PRN (12:40)
[2019-01-11] MEDS ORDERED: magnesium 2GM in 50ml NS 50 ML IV PRN (12:40)
[2019-01-11] MEDS ORDERED: ondansetron/PF 4mg/2ml inj IV PRN (12:40)
[2019-01-11] MEDS ORDERED: potassium Cl 20 mEq SR tablet PO PRN (12:40)
[2019-01-11] MEDS ORDERED: magnesium 4gm in 100ml NS 100 ML IV PRN (12:40)
[2019-01-11] MEDS ORDERED: normal saline 1000ML IV soln IVB ONE (12:45)
--- NOTE | 2019-01-11 14:00 | NUR ---
Patient in room REMI 351. I have received report from Adolfo SANCHEZ and had the opportunity to ask questions and assume patient care.
[2019-01-11] MEDS: normal saline 1000ml 1,000 ML IV SCH ×3 (14:12→22:36)
[2019-01-11] MEDS: cefepime 1GM/NS ADD-VANTAGE 100 ML IV SCH (16:37)
[2019-01-11 18:00] VITALS: BP 105/48
--- NOTE | 2019-01-11 18:30 | NUR ---
Problems reprioritized. Patient report given, questions answered & plan of care reviewed with Javier.
--- NOTE | 2019-01-11 19:19 | NUR ---
Patient in room REMI 351. I have received report from Rivera SANCHEZ and had the opportunity to ask questions and assume patient care.
[2019-01-11] MEDS ORDERED: non-formulary drug (Levetiracetam (Keppra) 1 TAB) PO SCH (20:00)
[2019-01-11] MEDS: docusate sod 100mg capsule PO SCH (20:31)
[2019-01-11] MEDS: lactobacillus rhamnosus 10,000 MMU CELLS/CAPSULE PO SCH (20:33)
[2019-01-11] MEDS: famotidine 20mg tablet PO SCH (20:34)
[2019-01-11] MEDS: levetiracetam 250mg tablet PO SCH (20:34)
[2019-01-11] MEDS: pregabalin 75mg capsule PO SCH (20:34)
[2019-01-11] MEDS: mupirocin 2% nasal ointment 1gm UD NS SCH (20:57)
[2019-01-11] MEDS: vancomycin/NS 1 GM ADD-VANTAGE 250 ML IV SCH (22:09)
[2019-01-11 23:36] VITALS: BP 105/48
[2019-01-12] VITALS: BP 104/47
[2019-01-12] MEDS: potassium Cl 20 mEq SR tablet PO PRN (00:08)
[2019-01-12] MEDS: cefepime 1GM/NS ADD-VANTAGE 100 ML IV SCH ×3 (00:09→15:27)
[2019-01-12] MEDS: oxyCODONE IR 5mg (immed. release) tablet PO PRN (00:11)
[2019-01-12] MEDS: normal saline 1000ml 1,000 ML IV SCH ×4 (04:09→21:42)
[2019-01-12] MEDS: acetaminophen 325mg tablet PO PRN (04:52)
[2019-01-12 05:13] LABS: BASOPHILS % (AUTO) 0.3 % (0-1); EOSINOPHILS % (AUTO) 0.3 % (0-6); HEMATOCRIT 34.1 % (35.0-45.0); HEMOGLOBIN 10.9 g/dl (12.0-16.0); LYMPHOCYTES # (AUTO) 1.5 X10'3 (1.1-4.8); LYMPHOCYTES % (AUTO) 10.5 % (21-51); MEAN CORPUSCULAR HEMOGLOBIN 27.5 PG (27.0-31.0); MEAN CORPUSCULAR HGB CONC 32.1 g/dL (33.0-36.5); MEAN CORPUSCULAR VOLUME 85.7 FL (78-98); MEAN PLATELET VOLUME 9.3 FL (7.4-10.4); MONOCYTES # (AUTO) 0.4 X10'3 (0-0.9); MONOCYTES % (AUTO) 3.1 % (2-12); NEUTROPHILS # (AUTO) 12.2 X10'3 (1.8-7.7); NEUTROPHILS % (AUTO) 85.8 % (42-75); PLATELET COUNT 135 X10'3 (140-440); RED BLOOD COUNT 3.98 X10'6 (4.20-5.60); RED CELL DISTRIBUTION WIDTH 17.5 % (11.5-14.5); WHITE BLOOD COUNT 14.3 X10'3 (4.5-11.0)
[2019-01-12 05:36] LABS: ALANINE AMINOTRANSFERASE 93 U/L (12-78); ALBUMIN 1.7 G/DL (3.4-5.0); ALBUMIN/GLOBULIN RATIO 0.5 (1.1-1.5); ALKALINE PHOSPHATASE 424 IU/L (46-116); ANION GAP 11 (8-16); ASPARTATE AMINO TRANSFERASE 49 U/L (10-37); BILIRUBIN,TOTAL 1.3 MG/DL (0.1-1.0); BLOOD UREA NITROGEN 17 MG/DL (7-18); BUN/CREATININE RATIO 20.2 (6.6-38.0); CALCIUM 7.6 MG/DL (8.5-10.1); CHLORIDE 110 MMOL/L (99-107); CREATININE 0.84 MG/DL (0.40-0.90); GLUCOSE 92 MG/DL (70-104); MAGNESIUM 1.3 MG/DL (1.5-2.4); POTASSIUM 3.6 MMOL/L (3.5-5.1); SODIUM 138 MMOL/L (135-145); TOTAL CARBON DIOXIDE 17.1 MMOL/L (24-32); TOTAL PROTEIN 5.4 G/DL (6.4-8.2); eGFR 69 ML/MIN
--- NOTE | 2019-01-12 05:39 | NUR ---
Patient felt warm to touch, took rectal temperature and it was 102.7. I gave Tylenol PO for fever and notified There was not any new orders given. Will continue to monitor.
--- NOTE | 2019-01-12 06:00 | NUR ---
Re checked rectal temperature it went down to 100.9, patient states she is starting to feel better
--- NOTE | 2019-01-12 06:19 | NUR ---
Problems reprioritized. Patient report given, questions answered & plan of care reviewed with Ligia SANCHEZ.
[2019-01-12 07:00] VITALS: BP 95/46
[2019-01-12] MEDS ORDERED: diltiazem CD 180mg cap (once-daily) PO SCH (08:00)
[2019-01-12] MEDS: K and/or MAG REPLACEMENT MC SCH (08:17)
[2019-01-12] MEDS: levetiracetam 250mg tablet PO SCH ×2 (08:35→21:07)
[2019-01-12] MEDS: predniSONE 20 mg tablet PO SCH (08:35)
[2019-01-12] MEDS: lactobacillus rhamnosus 10,000 MMU CELLS/CAPSULE PO SCH ×2 (08:35→21:05)
[2019-01-12] MEDS: pregabalin 75mg capsule PO SCH ×2 (08:35→21:05)
[2019-01-12] MEDS: levoTHYROXINE 125mcg tablet PO SCH (08:35)
[2019-01-12] MEDS: mupirocin 2% nasal ointment 1gm UD NS SCH ×2 (08:36→21:04)
[2019-01-12] MEDS: enoxaparin 40mg/0.4ml syringe SQ SCH (08:36)
[2019-01-12] MEDS: vancomycin/NS 1 GM ADD-VANTAGE 250 ML IV SCH ×2 (10:25→23:23)
[2019-01-12 11:00] VITALS: BP 106/53
[2019-01-12] MEDS ORDERED: aspirin/acetaminophen/caffeine tablet PO ONE (14:25)
--- NOTE | 2019-01-12 14:56 | NUR ---
Initial: patient admitted with sepsis secondary to cellulitis and pneumonia per MD note. Pt recently admitted in October with septic shock and respiratory failure, was intubated for part of that admission. Currently with cellulitis of left index finger, possible abscess with I&D done in ED. Patient on regular diet. Patient seen at bedside and given written high protein education handout with verbal review, pt has increased protein needs r/t infection. Patient reports good appetite, no chewing or swallowing difficulty. Obtained food preferences including 2 milks on each tray, d/w dietary. Will continue to follow. Recommend: 1. advance diet as medically indicated to regular 2. two milks with each meal 3. Continue bowel care as needed 4. Wt per rx Addendum: 01/12/19 at [address] Amended: Links added.
[2019-01-12] MEDS ORDERED: magnesium Cl slow-release 64mg tablet PO PRN (15:20)
[2019-01-12 18:00] VITALS: BP 121/69
--- NOTE | 2019-01-12 18:09 | NUR ---
Problems reprioritized. Patient report given, questions answered & plan of care reviewed with JOHNNIE SANCHEZ.
--- NOTE | 2019-01-12 18:36 | NUR ---
Patient in room REMI 351. I have received report from Ligia SANCHEZ and had the opportunity to ask questions and assume patient care.
[2019-01-12] MEDS: famotidine 20mg tablet PO SCH (21:06)
[2019-01-12] MEDS: docusate sod 100mg capsule PO SCH (21:06)
[2019-01-12] MEDS ORDERED: VANCOMYCIN LEVEL IV ONE (21:30)
[2019-01-13] VITALS: BP 133/49
[2019-01-13 00:32] VITALS: BP 133/49
[2019-01-13] MEDS: normal saline 1000ml 1,000 ML IV SCH ×3 (00:53→17:36)
[2019-01-13] MEDS: cefepime 1GM/NS ADD-VANTAGE 100 ML IV SCH ×3 (01:04→15:48)
[2019-01-13] MEDS: oxyCODONE IR 5mg (immed. release) tablet PO PRN ×3 (01:10→23:48)
--- NOTE | 2019-01-13 02:07 | NUR ---
[patient refused SCDs. She is doing heel pumps, and leg lifts while in bed. She also gets up to [facility]. She stated that she plans to walk today. Addendum: 01/13/19 at 0208 by Javier Quezada RN Amended: Links added.
[2019-01-13 06:09] LABS: HEMOGLOBIN 9.7 g/dl (12.0-16.0); LYMPHOCYTES # (AUTO) 0.8 X10'3 (1.1-4.8); WHITE BLOOD COUNT 10.4 X10'3 (4.5-11.0)
[2019-01-13 06:12] LABS: BASOPHILS % (AUTO) 0.4 % (0-1); EOSINOPHILS # (AUTO) 0.1 X10'3 (0-0.9); LYMPHOCYTES % (AUTO) 7.5 % (21-51); MEAN CORPUSCULAR HEMOGLOBIN 28.1 PG (27.0-31.0); MEAN CORPUSCULAR HGB CONC 33.4 g/dL (33.0-36.5); MEAN CORPUSCULAR VOLUME 84.2 FL (78-98); MEAN PLATELET VOLUME 9.5 FL (7.4-10.4); MONOCYTES # (AUTO) 0.3 X10'3 (0-0.9); NEUTROPHILS # (AUTO) 9.1 X10'3 (1.8-7.7); NEUTROPHILS % (AUTO) 88.1 % (42-75); PLATELET COUNT 134 X10'3 (140-440); RED BLOOD COUNT 3.44 X10'6 (4.20-5.60); RED CELL DISTRIBUTION WIDTH 17.5 % (11.5-14.5)
[2019-01-13 06:33] LABS: ALANINE AMINOTRANSFERASE 79 U/L (12-78); ALBUMIN 1.6 G/DL (3.4-5.0); ALBUMIN/GLOBULIN RATIO 0.4 (1.1-1.5); ALKALINE PHOSPHATASE 366 IU/L (46-116); ANION GAP 10 (8-16); ASPARTATE AMINO TRANSFERASE 54 U/L (10-37); BILIRUBIN,TOTAL 0.7 MG/DL (0.1-1.0); BLOOD UREA NITROGEN 19 MG/DL (7-18); BUN/CREATININE RATIO 26.8 (6.6-38.0); CALCIUM 8.1 MG/DL (8.5-10.1); CHLORIDE 113 MMOL/L (99-107); CREATININE 0.71 MG/DL (0.40-0.90); GLUCOSE 82 MG/DL (70-104); MAGNESIUM 1.5 MG/DL (1.5-2.4); POTASSIUM 3.1 MMOL/L (3.5-5.1); SODIUM 140 MMOL/L (135-145); TOTAL CARBON DIOXIDE 17.4 MMOL/L (24-32); TOTAL PROTEIN 5.5 G/DL (6.4-8.2); eGFR 84 ML/MIN
--- NOTE | 2019-01-13 06:33 | NUR ---
Patient in room REMI 351. I have received report from DANIEL Herrera and had the opportunity to ask questions and assume patient care.
--- NOTE | 2019-01-13 06:43 | NUR ---
Problems reprioritized. Patient report given, questions answered & plan of care reviewed with Zenaida SANCHEZ.
[2019-01-13 07:00] VITALS: BP 162/79
[2019-01-13] MEDS: K and/or MAG REPLACEMENT MC SCH (07:40)
[2019-01-13] MEDS: potassium Cl 20 mEq SR tablet PO PRN ×2 (07:41→15:48)
[2019-01-13] MEDS: lactobacillus rhamnosus 10,000 MMU CELLS/CAPSULE PO SCH ×2 (07:42→20:20)
[2019-01-13] MEDS: levetiracetam 250mg tablet PO SCH ×2 (07:43→20:19)
[2019-01-13] MEDS: levoTHYROXINE 125mcg tablet PO SCH (07:45)
[2019-01-13] MEDS: pregabalin 75mg capsule PO SCH ×2 (07:45→20:18)
[2019-01-13] MEDS: enoxaparin 40mg/0.4ml syringe SQ SCH (07:46)
[2019-01-13] MEDS: mupirocin 2% nasal ointment 1gm UD NS SCH ×2 (07:47→20:20)
[2019-01-13] MEDS: predniSONE 20 mg tablet PO SCH (07:48)
[2019-01-13] MEDS: vancomycin/NS 1 GM ADD-VANTAGE 250 ML IV SCH (10:27)
[2019-01-13 11:00] VITALS: BP 129/66
[2019-01-13] MEDS ORDERED: aspirin/acetaminophen/caffeine tablet PO PRN (16:05)
[2019-01-13 18:00] VITALS: BP 130/73
--- NOTE | 2019-01-13 18:06 | NUR ---
Problems reprioritized. Patient report given, questions answered & plan of care reviewed with DANIEL Herrera.
--- NOTE | 2019-01-13 18:30 | NUR ---
Patient in room REMI 351. I have received report from Zohra SANCHEZ and had the opportunity to ask questions and assume patient care.
[2019-01-13] MEDS: famotidine 20mg tablet PO SCH (20:19)
[2019-01-13] MEDS: docusate sod 100mg capsule PO SCH (20:24)
[2019-01-13] MEDS: VANCOmycin 1250MG/NS 250ml Bag 250 ML IV SCH (22:55)
[2019-01-14] VITALS: BP 132/66
[2019-01-14] MEDS: cefepime 1GM/NS ADD-VANTAGE 100 ML IV SCH ×4 (00:50→23:52)
[2019-01-14] MEDS: normal saline 1000ml 1,000 ML IV SCH ×3 (00:53→22:30)
--- NOTE | 2019-01-14 04:10 | NUR ---
pt refuses scds. she has been walking, and SQ anticoagulant Addendum: 01/14/19 at 0411 by Javier Quezada RN Amended: Links added.
[2019-01-14 05:20] LABS: BASOPHILS % (AUTO) 0.6 % (0-1); EOSINOPHILS # (AUTO) 0.1 X10'3 (0-0.9); EOSINOPHILS % (AUTO) 1.8 % (0-6); HEMATOCRIT 28.3 % (35.0-45.0); HEMOGLOBIN 9.3 g/dl (12.0-16.0); LYMPHOCYTES # (AUTO) 0.8 X10'3 (1.1-4.8); LYMPHOCYTES % (AUTO) 11.1 % (21-51); MEAN CORPUSCULAR HEMOGLOBIN 28.3 PG (27.0-31.0); MEAN CORPUSCULAR HGB CONC 32.9 g/dL (33.0-36.5); MEAN CORPUSCULAR VOLUME 85.9 FL (78-98); MEAN PLATELET VOLUME 9.6 FL (7.4-10.4); MONOCYTES # (AUTO) 0.4 X10'3 (0-0.9); MONOCYTES % (AUTO) 5.3 % (2-12); NEUTROPHILS # (AUTO) 5.5 X10'3 (1.8-7.7); NEUTROPHILS % (AUTO) 81.2 % (42-75); PLATELET COUNT 140 X10'3 (140-440); RED CELL DISTRIBUTION WIDTH 16.7 % (11.5-14.5); WHITE BLOOD COUNT 6.8 X10'3 (4.5-11.0)
[2019-01-14 05:45] LABS: ALANINE AMINOTRANSFERASE 97 U/L (12-78); ALBUMIN 1.6 G/DL (3.4-5.0); ALBUMIN/GLOBULIN RATIO 0.4 (1.1-1.5); ALKALINE PHOSPHATASE 383 IU/L (46-116); ANION GAP 10 (8-16); ASPARTATE AMINO TRANSFERASE 91 U/L (10-37); BILIRUBIN,TOTAL 0.6 MG/DL (0.1-1.0); BLOOD UREA NITROGEN 14 MG/DL (7-18); BUN/CREATININE RATIO 20.6 (6.6-38.0); CALCIUM 8.4 MG/DL (8.5-10.1); CHLORIDE 114 MMOL/L (99-107); CREATININE 0.68 MG/DL (0.40-0.90); GLUCOSE 78 MG/DL (70-104); MAGNESIUM 1.6 MG/DL (1.5-2.4); POTASSIUM 3.2 MMOL/L (3.5-5.1); SODIUM 142 MMOL/L (135-145); TOTAL CARBON DIOXIDE 17.8 MMOL/L (24-32); TOTAL PROTEIN 5.5 G/DL (6.4-8.2); eGFR 88 ML/MIN
[2019-01-14] MEDS: potassium Cl 20 mEq SR tablet PO PRN ×3 (05:56→17:33)
[2019-01-14] MEDS: oxyCODONE IR 5mg (immed. release) tablet PO PRN (06:01)
--- NOTE | 2019-01-14 06:18 | NUR ---
Patient in room REMI 351. I have received report from DANIEL Herrera and had the opportunity to ask questions and assume patient care.
--- NOTE | 2019-01-14 06:20 | NUR ---
Problems reprioritized. Patient report given, questions answered & plan of care reviewed with Zohra SANCHEZ.
--- NOTE | 2019-01-14 06:57 | NUR ---
Went into silence IV pump and asked patient how she was doing. Patient stated she is having a difficult time with breathing due to wheezing. Listened to patients lungs and there is audible wheezing throughout. She has NS running at 125 ml/hr. Fluids were turned down to 20 ml/hr. Will notify .
[2019-01-14 07:00] VITALS: BP 154/79
[2019-01-14] MEDS: K and/or MAG REPLACEMENT MC SCH (08:00)
[2019-01-14] MEDS: mupirocin 2% nasal ointment 1gm UD NS SCH ×2 (08:00→19:35)
[2019-01-14] MEDS: lactobacillus rhamnosus 10,000 MMU CELLS/CAPSULE PO SCH ×2 (08:25→19:34)
[2019-01-14] MEDS: predniSONE 20 mg tablet PO SCH (08:25)
[2019-01-14] MEDS: levetiracetam 250mg tablet PO SCH ×2 (08:25→19:34)
[2019-01-14] MEDS: levoTHYROXINE 125mcg tablet PO SCH (08:25)
[2019-01-14] MEDS: pregabalin 75mg capsule PO SCH ×2 (08:25→19:34)
[2019-01-14] MEDS: enoxaparin 40mg/0.4ml syringe SQ SCH (08:30)
[2019-01-14] MEDS: VANCOmycin 1250MG/NS 250ml Bag 250 ML IV SCH ×2 (09:37→22:16)
[2019-01-14] MEDS: acetaminophen 325mg tablet PO PRN (11:42)
[2019-01-14 11:55] VITALS: BP 145/80
[2019-01-14] MEDS ORDERED: magnesium 4gm in 100ml NS 100 ML IV PRN (17:00)
[2019-01-14] MEDS ORDERED: magnesium Cl slow-release 64mg tablet PO PRN (17:00)
[2019-01-14] MEDS ORDERED: potassium CL 10mEq/100ml bag 100 ML IV PRN (17:00)
--- NOTE | 2019-01-14 18:12 | NUR ---
Problems reprioritized. Patient report given, questions answered & plan of care reviewed with DANIEL Razo.
[2019-01-14 18:50] VITALS: BP 127/62
[2019-01-14] MEDS: docusate sod 100mg capsule PO SCH (20:21)
[2019-01-14] MEDS: famotidine 20mg tablet PO SCH (20:21)
[2019-01-15 01:06] VITALS: BP 149/82
[2019-01-15] MEDS: oxyCODONE IR 5mg (immed. release) tablet PO PRN ×3 (05:52→20:53)
--- NOTE | 2019-01-15 06:48 | NUR ---
Problems reprioritized. Patient report given, questions answered & plan of care reviewed with GABI. Addendum: 01/15/19 at 0649 by Vel Hermosillo RN Amended: Links added.
--- NOTE | 2019-01-15 06:50 | NUR ---
Patient in room REMI 351. I have received report from aaron parham and had the opportunity to ask questions and assume patient care.
[2019-01-15 07:00] VITALS: BP 131/60
[2019-01-15] MEDS: K and/or MAG REPLACEMENT MC SCH (08:00)
[2019-01-15] MEDS: lactobacillus rhamnosus 10,000 MMU CELLS/CAPSULE PO SCH ×2 (08:43→20:40)
[2019-01-15] MEDS: pregabalin 75mg capsule PO SCH ×2 (08:43→20:41)
[2019-01-15] MEDS: levetiracetam 250mg tablet PO SCH ×2 (08:43→20:40)
[2019-01-15] MEDS: mupirocin 2% nasal ointment 1gm UD NS SCH ×2 (08:44→20:40)
[2019-01-15] MEDS: enoxaparin 40mg/0.4ml syringe SQ SCH (08:44)
[2019-01-15] MEDS: predniSONE 20 mg tablet PO SCH (08:44)
[2019-01-15] MEDS: levoTHYROXINE 125mcg tablet PO SCH (08:44)
[2019-01-15] MEDS: cefepime 1GM/NS ADD-VANTAGE 100 ML IV SCH ×2 (08:45→16:19)
[2019-01-15] MEDS: potassium Cl 20 mEq SR tablet PO PRN ×3 (08:55→18:23)
[2019-01-15] MEDS ORDERED: VANCOMYCIN LEVEL IV ONE (09:30)
[2019-01-15 10:00] LABS: BASOPHILS # (AUTO) 0.1 X10'3 (0-0.2); BASOPHILS % (AUTO) 0.8 % (0-1); EOSINOPHILS # (AUTO) 0.1 X10'3 (0-0.9); EOSINOPHILS % (AUTO) 1.3 % (0-6); HEMATOCRIT 29.3 % (35.0-45.0); HEMOGLOBIN 9.6 g/dl (12.0-16.0); LYMPHOCYTES # (AUTO) 0.8 X10'3 (1.1-4.8); LYMPHOCYTES % (AUTO) 13.7 % (21-51); MEAN CORPUSCULAR HEMOGLOBIN 27.7 PG (27.0-31.0); MEAN CORPUSCULAR HGB CONC 32.8 g/dL (33.0-36.5); MEAN CORPUSCULAR VOLUME 84.5 FL (78-98); MEAN PLATELET VOLUME 8.9 FL (7.4-10.4); MONOCYTES # (AUTO) 0.4 X10'3 (0-0.9); NEUTROPHILS # (AUTO) 4.7 X10'3 (1.8-7.7); NEUTROPHILS % (AUTO) 78.2 % (42-75); PLATELET COUNT 138 X10'3 (140-440); RED BLOOD COUNT 3.47 X10'6 (4.20-5.60); RED CELL DISTRIBUTION WIDTH 17.4 % (11.5-14.5); WHITE BLOOD COUNT 6.1 X10'3 (4.5-11.0)
[2019-01-15 10:16] LABS: ALANINE AMINOTRANSFERASE 85 U/L (12-78); ALBUMIN 1.6 G/DL (3.4-5.0); ALBUMIN/GLOBULIN RATIO 0.4 (1.1-1.5); ALKALINE PHOSPHATASE 414 IU/L (46-116); ANION GAP 10 (8-16); ASPARTATE AMINO TRANSFERASE 61 U/L (10-37); BILIRUBIN,TOTAL 0.6 MG/DL (0.1-1.0); BLOOD UREA NITROGEN 13 MG/DL (7-18); BUN/CREATININE RATIO 16.9 (6.6-38.0); CALCIUM 8.7 MG/DL (8.5-10.1); CHLORIDE 109 MMOL/L (99-107); CREATININE 0.77 MG/DL (0.40-0.90); GLUCOSE 174 MG/DL (70-104); MAGNESIUM 1.4 MG/DL (1.5-2.4); SODIUM 140 MMOL/L (135-145); TOTAL CARBON DIOXIDE 20.9 MMOL/L (24-32); TOTAL PROTEIN 5.6 G/DL (6.4-8.2); eGFR 76 ML/MIN
[2019-01-15 10:22] LABS: VANCOMYCIN,TROUGH 27.2 UG/ML (6.0-14.0)
[2019-01-15 11:00] VITALS: BP 115/61
--- NOTE | 2019-01-15 12:27 | NUR ---
reassessment: Pt PO 50-75% meals fluctuating up to 100% some meals likely meeting needs. LBM 01/14 receiving colace. K/Mg being replaced at this time for low labs. Will continue to monitor. Recommend: 1. advance diet as medically indicated to regular 2. two milks with each meal 3. Continue bowel care as needed 4. Wt per rx Addendum: 01/15/19 at [address] Amended: Links added.
--- NOTE | 2019-01-15 15:28 | NUR ---
WOUND INFECTION EDUCATION PROVIDED BY WOUND CARE 1. Patient instructed to call their primary doctor, or go the ED immediately if any of the following symptoms occur: * Increased pain in wound * Increase in drainage from the wound * Redness in the skin surrounding the wound * Warmth in the skin surrounding the wound * Bleeding from the wound * Temperature of 101 or greater 2. If any of these occur while in the hospital tell a nurse immediately. Addendum: 01/15/19 at 1529 by Hadley Quintana RN Amended: Links added.
--- NOTE | 2019-01-15 17:45 | NUR ---
patient up and about in room. medicated x1 for pain. patient showered, seen by Wound care nurse . new orders placed. patient seen by Dr Ponce, probable DC in am. No other complaints. report given to Dung SANCHEZ
[2019-01-15 18:50] VITALS: BP 139/73
[2019-01-15] MEDS ORDERED: magnesium Cl slow-release 64mg tablet PO PRN (19:05)
[2019-01-15] MEDS: famotidine 20mg tablet PO SCH (20:41)
[2019-01-15] MEDS: docusate sod 100mg capsule PO SCH (20:41)
[2019-01-15] MEDS: normal saline 1000ml 1,000 ML IV SCH (20:48)
[2019-01-15] MEDS ORDERED: VANCOMYCIN 750MG IV in NS 250 ML IV SCH (22:00)
[2019-01-16] VITALS: BP 135/68
[2019-01-16] MEDS: cefepime 1GM/NS ADD-VANTAGE 100 ML IV SCH ×2 (00:14→07:37)
[2019-01-16] MEDS: oxyCODONE IR 5mg (immed. release) tablet PO PRN (05:30)
[2019-01-16 05:58] LABS: BASOPHILS % (AUTO) 0.4 % (0-1); EOSINOPHILS % (AUTO) 0.6 % (0-6); HEMATOCRIT 29.5 % (35.0-45.0); HEMOGLOBIN 9.7 g/dl (12.0-16.0); LYMPHOCYTES # (AUTO) 0.9 X10'3 (1.1-4.8); MEAN CORPUSCULAR HEMOGLOBIN 27.7 PG (27.0-31.0); MEAN PLATELET VOLUME 9.5 FL (7.4-10.4); MONOCYTES # (AUTO) 0.4 X10'3 (0-0.9); MONOCYTES % (AUTO) 5.5 % (2-12); NEUTROPHILS # (AUTO) 5.8 X10'3 (1.8-7.7); NEUTROPHILS % (AUTO) 80.5 % (42-75); PLATELET COUNT 173 X10'3 (140-440); RED BLOOD COUNT 3.51 X10'6 (4.20-5.60); WHITE BLOOD COUNT 7.3 X10'3 (4.5-11.0)
[2019-01-16 06:22] LABS: ALANINE AMINOTRANSFERASE 98 U/L (12-78); ALBUMIN 1.8 G/DL (3.4-5.0); ALBUMIN/GLOBULIN RATIO 0.4 (1.1-1.5); ALKALINE PHOSPHATASE 465 IU/L (46-116); ANION GAP 8 (8-16); ASPARTATE AMINO TRANSFERASE 69 U/L (10-37); BILIRUBIN,TOTAL 0.7 MG/DL (0.1-1.0); BLOOD UREA NITROGEN 17 MG/DL (7-18); BUN/CREATININE RATIO 22.7 (6.6-38.0); CALCIUM 8.9 MG/DL (8.5-10.1); CHLORIDE 110 MMOL/L (99-107); CREATININE 0.75 MG/DL (0.40-0.90); GLUCOSE 72 MG/DL (70-104); MAGNESIUM 1.6 MG/DL (1.5-2.4); POTASSIUM 3.7 MMOL/L (3.5-5.1); SODIUM 141 MMOL/L (135-145); TOTAL CARBON DIOXIDE 23.4 MMOL/L (24-32); TOTAL PROTEIN 6.1 G/DL (6.4-8.2); eGFR 79 ML/MIN
--- NOTE | 2019-01-16 06:41 | NUR ---
Problems reprioritized. Patient report given, questions answered & plan of care reviewed with THOM. Addendum: 01/16/19 at 0641 by Vel Hermosillo RN Amended: Links added.
[2019-01-16] MEDS: K and/or MAG REPLACEMENT MC SCH (06:58)
[2019-01-16 07:00] VITALS: BP 131/67
[2019-01-16 07:33] LABS: PLATELET ESTIMATE NORMAL; TOTAL CELLS COUNTED 100
[2019-01-16 07:34] LABS: ANISOCYTOSIS 1+
[2019-01-16 07:35] LABS: GIANT PLATELET FEW; LARGE PLATELETS FEW; TOXIC GRANULATION 2+
[2019-01-16 07:36] LABS: SCHISTOCYTES FEW
[2019-01-16] MEDS: levetiracetam 250mg tablet PO SCH (07:38)
[2019-01-16] MEDS: predniSONE 20 mg tablet PO SCH (07:38)
[2019-01-16] MEDS: levoTHYROXINE 125mcg tablet PO SCH (07:39)
[2019-01-16] MEDS: lactobacillus rhamnosus 10,000 MMU CELLS/CAPSULE PO SCH (07:39)
[2019-01-16] MEDS: enoxaparin 40mg/0.4ml syringe SQ SCH (07:40)
[2019-01-16] MEDS: pregabalin 75mg capsule PO SCH (07:40)
[2019-01-16] MEDS: mupirocin 2% nasal ointment 1gm UD NS SCH (07:40)
--- NOTE | 2019-01-16 09:30 | NUR ---
Wound consult: Per [facility] notes pt with full thickness necrotic abscess to left first finger and surgical wound to abdomen. Pt already seen at bedside by DEQUAN and provided with written and verbal protein education. Pt receiving two milks TIDWM providing additional protein. No further intervention warranted at this time. Will continue to follow. Addendum: 01/16/19 at [address] Amended: Links added.
[2019-01-16] MEDS ORDERED: LINE600T11 PO (09:52)
[2019-01-16] MEDS ORDERED: OXYC-658 PO (10:02)
[2019-01-16] MEDS ORDERED: linezolid 600mg tablet PO ONE (10:05)
--- NOTE | 2019-01-16 10:58 | NUR ---
Pt discharged but says she is unable to leave hospital until her daughter gets off work after 1600 today. Pt offered cab home but declines offer and wants to wait for daughter to pick her up later today.
[2019-01-16 13:04] VITALS: BP 144/72
--- NOTE | 2019-01-16 16:45 | NUR ---
Pt discharged to home with daughter taken to pick pulling machine tender area in wheel chair and assisted to personal vehicle all her belongings with her.
[2019-01-17] MEDS ORDERED: VANCOMYCIN LEVEL IV ONE (09:30)
== END 2019-01-16 17:04 | disposition home health service (06) | DRG 720 ==
LOC: ER 08:22 → SUR 3N 14:03 → CMPBEDREQ 01-15 20:59
PROVIDERS: ADMIT Family Medicine; ATTEND Internal Medicine
PROC: 0H9GXZZ Drainage of Left Hand Skin, External Approach (ICD-10-PCS; principal; 2019-01-11)
DX: A41.02 Sepsis due to Methicillin resistant Staphylococcus aureus (principal); E43 Unspecified severe protein-calorie malnutrition; G61.0 Guillain-Barre syndrome; J18.1 Lobar pneumonia, unspecified organism; D63.8 Anemia in other chronic diseases classified elsewhere; B95.2 Enterococcus as the cause of diseases classified elsewhere; E83.42 Hypomagnesemia; E87.6 Hypokalemia; L02.512 Cutaneous abscess of left hand; K21.9 Gastro-esophageal reflux disease without esophagitis; G43.909 Migraine, unspecified, not intractable, without status migrainosus; G57.90 Unspecified mononeuropathy of unspecified lower limb; N28.9 Disorder of kidney and ureter, unspecified; R74.0 Nonspecific elevation of levels of transaminase and lactic acid dehydrogenase [LDH]; L03.012 Cellulitis of left finger; N39.0 Urinary tract infection, site not specified; R65.20 Severe sepsis without septic shock; Z79.899 Other long term (current) drug therapy; Z82.3 Family history of stroke; Z88.5 Allergy status to narcotic agent; Z88.2 Allergy status to sulfonamides; Z80.42 Family history of malignant neoplasm of prostate; Z84.89 Family history of other specified conditions; Z68.27 Body mass index [BMI] 27.0-27.9, adult
CPT/HCPCS: 10060; 36415; 71045; 80053; 80202; 81001; 83605; 83735; 84145; 84443; 84550; 85025; 85610; 85730; 87040; 87070; 87075; 87077; 87081; 87088; 87186; 90471; 93005; 94760; 96361; 96365; 96366; 96368; 99285; G0378; J0692; J1650; J2543; J3370; J3480; J7030; J7050; J7512

== ENCOUNTER 2019-05-02 14:14 | Emergency (ER) | payer MEDICAID ==
[~2019-05-02] VITALS: Ht 160 cm; Wt 74.8 kg
[~2019-05-02 14:14] MED LIST changes: -ASPI-845 PO; -BUPR1PAT TOP; +DOCU100C41 PO; -HEPA500017 SQ; -IPRA3AMP9 NEB; -LEVE250T PO; +LEVO125T PO; -MAGN64TA10 PO; +MUPI1OIN5 BOTHNARES; -NALO0.4V13 IV; +OMEP20CA11 PO; +OXYC-658 PO; -PRED20TA PO
[2019-05-02 15:36] LABS: BASOPHILS % (AUTO) 0.4 % (0-1); EOSINOPHILS % (AUTO) 0.4 % (0-6); HEMATOCRIT 33.9 % (35.0-45.0); LYMPHOCYTES # (AUTO) 0.5 X10'3 (1.1-4.8); LYMPHOCYTES % (AUTO) 9.9 % (21-51); MEAN CORPUSCULAR HEMOGLOBIN 26.3 PG (27.0-31.0); MEAN CORPUSCULAR HGB CONC 32.6 g/dL (33.0-36.5); MEAN CORPUSCULAR VOLUME 80.5 FL (78-98); MEAN PLATELET VOLUME 8.9 FL (7.4-10.4); MONOCYTES # (AUTO) 0.2 X10'3 (0-0.9); MONOCYTES % (AUTO) 4.4 % (2-12); NEUTROPHILS # (AUTO) 4.6 X10'3 (1.8-7.7); NEUTROPHILS % (AUTO) 84.9 % (42-75); PLATELET COUNT 195 X10'3 (140-440); RED BLOOD COUNT 4.21 X10'6 (4.20-5.60); RED CELL DISTRIBUTION WIDTH 20.1 % (11.5-14.5); WHITE BLOOD COUNT 5.5 X10'3 (4.5-11.0)
[2019-05-02 15:44] LABS: CLARITY,URINE SLIGHTLY CLOUDY (Clear); COLOR,URINE YELLOW (Yellow); GLUCOSE, URINE NEGATIVE (Neg); KETONES,URINE TRACE mg/dl (Neg); LEUKOCYTE ESTERASE ,URINE TRACE (Neg); NITRITES, URINE POSITIVE (Neg); OCCULT BLOOD,URINE LARGE (Neg); PROTEIN,URINE >=300 mg/dl (Neg); UROBILINOGEN,URINE 0.2 E.U/dL (0.2-1.0)
[2019-05-02 15:48] LABS: UA COLLECTION TYPE CLN CATCH MIDSTREAM
[2019-05-02 15:49] LABS: ALBUMIN 2.2 G/DL (3.4-5.0); ALBUMIN/GLOBULIN RATIO 0.4 (1.1-1.5); ALKALINE PHOSPHATASE 448 IU/L (46-116); ANION GAP 12 (8-16); BILIRUBIN,TOTAL 1.6 MG/DL (0.1-1.0); BLOOD UREA NITROGEN 27 MG/DL (7-18); CALCIUM 9.2 MG/DL (8.5-10.1); CHLORIDE 109 MMOL/L (99-107); GLUCOSE 102 MG/DL (70-104); LIPASE 176 U/L (73-393); POTASSIUM 3.6 MMOL/L (3.5-5.1); SODIUM 141 MMOL/L (135-145); eGFR 56 ML/MIN
[2019-05-02 15:50] LABS: ALANINE AMINOTRANSFERASE 1147 U/L (12-78); ASPARTATE AMINO TRANSFERASE 1143 U/L (10-37)
[2019-05-02 15:52] LABS: BACTERIA,URINE 4+ /HPF (Neg); RBC,URINE 20-50 /HPF (0-2); SQUAMOUS EPITHELIAL CELL,UR MODERATE /LPF (FEW)
[2019-05-02 15:53] LABS: CELLULAR CAST 0-4 /LPF (NEGATIVE); MUCUS STRANDS NONE SEEN /LPF (Neg)
[2019-05-02 16:26] LABS: PLATELET ESTIMATE NORMAL
[2019-05-02 16:27] LABS: ANISOCYTOSIS 3+
[2019-05-02] MEDS ORDERED: CefTRIAXone 2gm/D5W 50ml 50 ML IV ONE (17:55)
[2019-05-02] MEDS ORDERED: normal saline 1000ML IV soln IVB ONE (18:20)
[2019-05-02] MEDS ORDERED: ondansetron/PF 4mg/2ml inj IV ONE (18:20)
[2019-05-02 20:07] VITALS: BP 137/70
== END 2019-05-02 20:12 | disposition home or self-care (01) ==
LOC: ER 14:14
DX: K74.60 Unspecified cirrhosis of liver (principal); R11.2 Nausea with vomiting, unspecified; R10.13 Epigastric pain; R10.12 Left upper quadrant pain; R94.5 Abnormal results of liver function studies; G43.909 Migraine, unspecified, not intractable, without status migrainosus; Z88.6 Allergy status to analgesic agent; Z88.2 Allergy status to sulfonamides; Z79.899 Other long term (current) drug therapy; Z87.440 Personal history of urinary (tract) infections; Z86.73 Personal history of transient ischemic attack (TIA), and cerebral infarction without residual deficits
CPT/HCPCS: 36415; 76700; 80053; 81001; 83605; 83690; 84145; 85025; 85610; 87040; 87077; 87088; 87186; 96365; 96375; 99284; J0696; J2405; J7030; 96361

== ENCOUNTER 2019-05-04 15:18 | Inpatient (IN) | payer MEDICAID ==
[~2019-05-04] VITALS: Ht 160 cm; Wt 68.2 kg
[2019-05-04 16:24] LABS: BASOPHILS % (AUTO) 0.9 % (0-1); EOSINOPHILS % (AUTO) 0.4 % (0-6); HEMATOCRIT 32.9 % (35.0-45.0); HEMOGLOBIN 10.8 g/dl (12.0-16.0); LYMPHOCYTES # (AUTO) 0.6 X10'3 (1.1-4.8); LYMPHOCYTES % (AUTO) 12.9 % (21-51); MEAN CORPUSCULAR HGB CONC 32.8 g/dL (33.0-36.5); MEAN CORPUSCULAR VOLUME 79.4 FL (78-98); MEAN PLATELET VOLUME 8.6 FL (7.4-10.4); MONOCYTES # (AUTO) 0.3 X10'3 (0-0.9); MONOCYTES % (AUTO) 5.8 % (2-12); NEUTROPHILS # (AUTO) 3.6 X10'3 (1.8-7.7); PLATELET COUNT 197 X10'3 (140-440); RED BLOOD COUNT 4.15 X10'6 (4.20-5.60); RED CELL DISTRIBUTION WIDTH 20.1 % (11.5-14.5); WHITE BLOOD COUNT 4.5 X10'3 (4.5-11.0)
[2019-05-04 16:45] LABS: ALANINE AMINOTRANSFERASE 640 U/L (12-78); ALBUMIN 1.9 G/DL (3.4-5.0); ALBUMIN/GLOBULIN RATIO 0.3 (1.1-1.5); ALKALINE PHOSPHATASE 340 IU/L (46-116); ANION GAP 10 (8-16); ASPARTATE AMINO TRANSFERASE 515 U/L (10-37); BILIRUBIN,TOTAL 1.3 MG/DL (0.1-1.0); BLOOD UREA NITROGEN 21 MG/DL (7-18); CALCIUM 8.8 MG/DL (8.5-10.1); CHLORIDE 108 MMOL/L (99-107); CREATININE 0.84 MG/DL (0.40-0.90); GLUCOSE 116 MG/DL (70-104); LIPASE 88 U/L (73-393); POTASSIUM 3.1 MMOL/L (3.5-5.1); SODIUM 140 MMOL/L (135-145); TOTAL CARBON DIOXIDE 22.1 MMOL/L (24-32); TOTAL PROTEIN 7.6 G/DL (6.4-8.2); eGFR 69 ML/MIN
[2019-05-04] MEDS ORDERED: normal saline 1000ml 1,000 ML IV ONE (16:55)
[2019-05-04] MEDS ORDERED: ondansetron/PF 4mg/2ml inj IV ONE ×2 (16:55→19:45)
[2019-05-04] MEDS ORDERED: CefTRIAXone 2gm/D5W 50ml 50 ML IV ONE (17:30)
[2019-05-04] MEDS ORDERED: normal saline 1000ml 1,000 ML IV SCH (20:18)
[2019-05-04] MEDS ORDERED: potassium Cl 20 mEq SR tablet PO PRN (20:20)
[2019-05-04] MEDS ORDERED: magnesium 2GM in 50ml NS 50 ML IV PRN (20:20)
[2019-05-04] MEDS ORDERED: potassium CL 10mEq/100ml bag 100 ML IV PRN (20:20)
[2019-05-04] MEDS ORDERED: magnesium 4gm in 100ml NS 100 ML IV PRN (20:20)
[2019-05-04] MEDS ORDERED: magnesium Cl slow-release 64mg tablet PO PRN (20:20)
[2019-05-04] MEDS: pantoprazole 40 MG vial IV SCH (21:01)
[2019-05-04 21:20] VITALS: BP_SYST 156; BP_SYST 186; BP_DIAS 79
[2019-05-04 21:57] LABS: CLARITY,URINE SLIGHTLY CLOUDY (Clear); COLOR,URINE AMBER (Yellow); GLUCOSE, URINE NEGATIVE (Neg); KETONES,URINE 15 mg/dl (Neg); LEUKOCYTE ESTERASE ,URINE NEGATIVE (Neg); NITRITES, URINE NEGATIVE (Neg); OCCULT BLOOD,URINE LARGE (Neg); PH,URINE 6.5 (4.8-8.0); PROTEIN,URINE 100 mg/dl (Neg); UROBILINOGEN,URINE 0.2 E.U/dL (0.2-1.0)
[2019-05-04 21:59] LABS: UA COLLECTION TYPE STRAIGHT CATH
[2019-05-04 22:09] LABS: BACTERIA,URINE FEW /HPF (Neg); MUCUS STRANDS NONE SEEN /LPF (Neg); RBC,URINE 50-100 /HPF (0-2); SQUAMOUS EPITHELIAL CELL,UR FEW /LPF (FEW)
[2019-05-04] MEDS: potassium CL 10mEq/100ml bag 100 ML IV PRN ×2 (22:14→23:50)
--- NOTE | 2019-05-04 22:26 | NUR ---
Reciewved report from DANIEL quiroz
[2019-05-05] MEDS: potassium CL 10mEq/100ml bag 100 ML IV PRN ×6 (01:00→13:50)
--- NOTE | 2019-05-05 02:43 | NUR ---
reviewed and agree with SRN assessment
[2019-05-05 06:10] VITALS: BP 149/76
[2019-05-05 06:26] LABS: BASOPHILS % (AUTO) 0.6 % (0-1); EOSINOPHILS % (AUTO) 0.5 % (0-6); HEMATOCRIT 31.6 % (35.0-45.0); HEMOGLOBIN 10.5 g/dl (12.0-16.0); LYMPHOCYTES # (AUTO) 0.5 X10'3 (1.1-4.8); LYMPHOCYTES % (AUTO) 11.9 % (21-51); MEAN CORPUSCULAR HEMOGLOBIN 26.2 PG (27.0-31.0); MEAN CORPUSCULAR HGB CONC 33.1 g/dL (33.0-36.5); MEAN CORPUSCULAR VOLUME 79.2 FL (78-98); MEAN PLATELET VOLUME 8.2 FL (7.4-10.4); MONOCYTES # (AUTO) 0.2 X10'3 (0-0.9); MONOCYTES % (AUTO) 5.7 % (2-12); NEUTROPHILS # (AUTO) 3.4 X10'3 (1.8-7.7); NEUTROPHILS % (AUTO) 81.3 % (42-75); PLATELET COUNT 189 X10'3 (140-440); RED BLOOD COUNT 3.99 X10'6 (4.20-5.60); RED CELL DISTRIBUTION WIDTH 19.9 % (11.5-14.5); WHITE BLOOD COUNT 4.2 X10'3 (4.5-11.0)
[2019-05-05 06:28] LABS: ALBUMIN 1.9 G/DL (3.4-5.0); ANION GAP 11 (8-16); BLOOD UREA NITROGEN 19 MG/DL (7-18); BUN/CREATININE RATIO 24.1 (6.6-38.0); CALCIUM 8.5 MG/DL (8.5-10.1); CHLORIDE 109 MMOL/L (99-107); CHOL/HDL RATIO 17.9 (0.00-4.99); CHOLESTEROL 161 MG/DL (0-200); CREATININE 0.79 MG/DL (0.40-0.90); GLUCOSE 90 MG/DL (70-104); HDL CHOLESTEROL 9 MG/DL (35-60); LDL CHOLESTEROL 115 MG/DL (50-100); MAGNESIUM 2.1 MG/DL (1.5-2.4); POTASSIUM 3.3 MMOL/L (3.5-5.1); SODIUM 141 MMOL/L (135-145); TOTAL CARBON DIOXIDE 20.6 MMOL/L (24-32); TRIGLYCERIDES 170 MG/DL (20-135); eGFR 74 ML/MIN
--- NOTE | 2019-05-05 06:30 | NUR ---
Patient in room ORTHO 4007. I have received report from Tracy Andrade RN and had the opportunity to ask questions and assume patient care.
--- NOTE | 2019-05-05 06:32 | NUR ---
Problems reprioritized. Patient report given, questions answered & plan of care reviewed with DANIEL Guido.
[2019-05-05 06:36] LABS: % IRON SATURATION 10 % (11-46); IRON 27 UG/DL (49-151); TOTAL IRON BINDING CAPACITY 274 UG/DL (259-388)
[2019-05-05] MEDS: ondansetron/PF 4mg/2ml inj IV PRN ×2 (06:55→21:31)
[2019-05-05] MEDS: K and/or MAG REPLACEMENT MC SCH (08:00)
[2019-05-05] MEDS: pantoprazole 40 MG vial IV SCH (08:08)
[2019-05-05] MEDS: furosemide 20 MG/2 ML vial IV SCH (08:15)
[2019-05-05] MEDS: levetiracetam inj 500 MG in normal saline 100ml IV soln 95 ML IV SCH ×2 (09:26→20:32)
[2019-05-05 10:00] VITALS: BP 149/76
[2019-05-05] MEDS: dextrose 5%-normal saline 1,000 ML IV SCH (13:57)
[2019-05-05 14:04] LABS: HIV ANTIBODY 1&2 RAPID NON-REACTIVE (Neg)
--- NOTE | 2019-05-05 14:34 | NUR ---
Malnutrition consult: Attempted visit with pt at bedside however pt very sleepy and unable to stay awake during RD visit. Patient's wt appears overall stable per records documented with scaled weights of 70 kg 01/12/19 and 74.85 kg 05/02/19; current documented wt is 68.18 kg however is pt stated and pt documented to have been lethargic at admit. Likely no wt loss given documented wt hx. Pt with active regular diet order however documented as NPO at this time, pending BSS with ST. Pt with no significant decrease in muscle strength and with BLE 2+ edema. No visible fat or muscle wasting. Pt currently lacks a minimum of two criteria for malnutrition. Will continue to follow. Addendum: 05/05/19 at [address] Amended: Links added.
[2019-05-05] MEDS ORDERED: CefTRIAXone/D5W-Rocephin 1gm 50 ML IV SCH (16:05)
[2019-05-05] MEDS ORDERED: aspirin 325mg tablet PO ONE (16:30)
[2019-05-05] MEDS: atorvastatin 20mg tablet PO SCH (16:39)
[2019-05-05 18:00] VITALS: BP 139/77
--- NOTE | 2019-05-05 18:46 | NUR ---
Patient report given to Adolfo SANCHEZ
--- NOTE | 2019-05-05 19:00 | NUR ---
Patient in room ORTHO 4007. I have received report from Lata Villalta RN and had the opportunity to ask questions and assume patient care.
[2019-05-05] MEDS ORDERED: CefTRIAXone/D5W-Rocephin 1gm 50 ML IV ONE (19:10)
[2019-05-05] MEDS: lactulose 20gm/30ml cup PO SCH (20:00)
[2019-05-05] MEDS: diatr meglu/diatrizoate 30ml oral sol.-(3 dose) bottle PO SCH (21:16)
[2019-05-05] MEDS: heparin, porcine 5000 units/ml vial SQ SCH (21:18)
[2019-05-05] MEDS: vancomycin/NS 1 GM ADD-VANTAGE 250 ML IV SCH (21:20)
[2019-05-05 22:00] VITALS: BP 130/71
[2019-05-06] MEDS: dextrose 5%-normal saline 1,000 ML IV SCH ×3 (01:35→15:00)
[2019-05-06 02:00] VITALS: BP 138/73
[2019-05-06] MEDS: lactulose 20gm/30ml cup PO SCH ×4 (02:00→20:00)
[2019-05-06] MEDS ORDERED: ibuprofen 200mg tablet PO ONE (05:15)
[2019-05-06 06:00] VITALS: BP 139/75
[2019-05-06 07:04] LABS: BASOPHILS % (AUTO) 0.6 % (0-1); EOSINOPHILS # (AUTO) 0.1 X10'3 (0-0.9); EOSINOPHILS % (AUTO) 1.7 % (0-6); HEMATOCRIT 31.2 % (35.0-45.0); HEMOGLOBIN 10.3 g/dl (12.0-16.0); LYMPHOCYTES # (AUTO) 0.4 X10'3 (1.1-4.8); MEAN CORPUSCULAR HEMOGLOBIN 26.3 PG (27.0-31.0); MEAN CORPUSCULAR HGB CONC 33.1 g/dL (33.0-36.5); MEAN CORPUSCULAR VOLUME 79.4 FL (78-98); MEAN PLATELET VOLUME 8.3 FL (7.4-10.4); MONOCYTES # (AUTO) 0.2 X10'3 (0-0.9); MONOCYTES % (AUTO) 4.4 % (2-12); NEUTROPHILS # (AUTO) 3.3 X10'3 (1.8-7.7); NEUTROPHILS % (AUTO) 82.3 % (42-75); PLATELET COUNT 175 X10'3 (140-440); RED BLOOD COUNT 3.93 X10'6 (4.20-5.60); RED CELL DISTRIBUTION WIDTH 19.8 % (11.5-14.5)
[2019-05-06 07:18] LABS: ALANINE AMINOTRANSFERASE 453 U/L (12-78); ALBUMIN 1.7 G/DL (3.4-5.0); ALBUMIN/GLOBULIN RATIO 0.3 (1.1-1.5); ALKALINE PHOSPHATASE 266 IU/L (46-116); ANION GAP 6 (8-16); ASPARTATE AMINO TRANSFERASE 441 U/L (10-37); BLOOD UREA NITROGEN 17 MG/DL (7-18); BUN/CREATININE RATIO 19.5 (6.6-38.0); CALCIUM 7.8 MG/DL (8.5-10.1); CHLORIDE 109 MMOL/L (99-107); CREATININE 0.87 MG/DL (0.40-0.90); GLUCOSE 148 MG/DL (70-104); PHOSPHORUS 1.7 MG/DL (2.3-4.5); SODIUM 139 MMOL/L (135-145); TOTAL CARBON DIOXIDE 23.7 MMOL/L (24-32); TOTAL PROTEIN 6.6 G/DL (6.4-8.2); eGFR 66 ML/MIN
[2019-05-06] MEDS: diatr meglu/diatrizoate 30ml oral sol.-(3 dose) bottle PO SCH ×2 (07:31→09:28)
[2019-05-06] MEDS: potassium CL 10mEq/100ml bag 100 ML IV PRN ×2 (07:32→09:35)
[2019-05-06 07:33] LABS: ANISOCYTOSIS 2+; MICROCYTOSIS 1+; PLATELET ESTIMATE NORMAL
[2019-05-06] MEDS: K and/or MAG REPLACEMENT MC SCH (08:00)
[2019-05-06] MEDS ORDERED: iohexol 300mg/ml 100ml inj. ONE (09:05)
[2019-05-06 09:18] LABS: IMMUNOGLOBULIN A, QN, SERUM 690 mg/dL (87-352); IMMUNOGLOBULIN G, QN, SERUM 2073 mg/dL (700-1600); IMMUNOGLOBULIN M, QN, SERUM 113 mg/dL (26-217)
[2019-05-06 10:00] VITALS: BP 99/59
[2019-05-06] MEDS: heparin, porcine 5000 units/ml vial SQ SCH ×2 (11:13→19:59)
[2019-05-06] MEDS: aspirin 325mg tablet PO SCH (11:14)
[2019-05-06 11:32] LABS: HBSAG SCREEN Negative (Negative); HEP B CORE AB, TOT Negative (Negative); HEPATITIS C ANTIBODY <0.1 s/co ratio (0.0-0.9)
[2019-05-06] MEDS: atorvastatin 20mg tablet PO SCH (11:36)
[2019-05-06] MEDS: pantoprazole 40 MG vial IV SCH (11:45)
[2019-05-06] MEDS: levetiracetam inj 500 MG in normal saline 100ml IV soln 95 ML IV SCH ×2 (11:45→19:59)
[2019-05-06] MEDS: vancomycin/NS 1 GM ADD-VANTAGE 250 ML IV SCH ×2 (11:45→21:59)
[2019-05-06 12:18] LABS: PARTIAL THROMBOPLASTIN TIME 32 SECONDS (22-32)
[2019-05-06 15:00] VITALS: BP 105/61
[2019-05-06] MEDS: furosemide 20 MG/2 ML vial IV SCH (17:54)
[2019-05-06] MEDS: CefTRIAXone 2gm/D5W 50ml 50 ML IV SCH (17:54)
[2019-05-06 18:00] VITALS: BP 130/73
--- NOTE | 2019-05-06 18:00 | NUR ---
Patient in room ORTHO 4007. I have received report from Becca SANCHEZ and had the opportunity to ask questions and assume patient care.
--- NOTE | 2019-05-06 18:00 | NUR ---
Page Dr Gilberto mejia patient was more awake & alert prior to new PIV and Keppra admin. somnolent and drowsy at this time
[2019-05-06] MEDS: potassium Cl 20 mEq SR tablet PO PRN ×2 (18:06→22:24)
--- NOTE | 2019-05-06 18:20 | NUR ---
Report to Tracy Mclaughlin RN
[2019-05-06 22:00] VITALS: BP 140/70
[2019-05-07] MEDS: lactulose 20gm/30ml cup PO SCH ×4 (02:00→20:27)
--- NOTE | 2019-05-07 05:08 | NUR ---
pt has elevated temperature of 102.1 which has increased from 100.9 at 2200, cool cloth placed on pt forehead and neck. notified Dr. Bradley and was ordered to administer Tyenol 650mg now. will continue to monitor pt.
[2019-05-07] MEDS ORDERED: acetaminophen 325mg tablet PO PRN (05:15)
--- NOTE | 2019-05-07 06:13 | NUR ---
Patient in room ORTHO 4007. I have received report from MACIE/AKIRA SANCHEZ and had the opportunity to ask questions and assume patient care.
--- NOTE | 2019-05-07 06:15 | NUR ---
Problems reprioritized. Patient report given, questions answered & plan of care reviewed with Becca SANCHEZ.
[2019-05-07] MEDS: heparin, porcine 5000 units/ml vial SQ SCH ×2 (06:38→20:27)
[2019-05-07] MEDS: aspirin 325mg tablet PO SCH (06:38)
[2019-05-07 06:39] VITALS: BP 143/72
[2019-05-07] MEDS ORDERED: VANCOMYCIN LEVEL IV ONE (07:30)
[2019-05-07] MEDS: atorvastatin 20mg tablet PO SCH (08:00)
[2019-05-07] MEDS: K and/or MAG REPLACEMENT MC SCH (08:00)
[2019-05-07 08:44] LABS: BASOPHILS % (AUTO) 0.6 % (0-1); EOSINOPHILS % (AUTO) 0.6 % (0-6); HEMATOCRIT 34.4 % (35.0-45.0); HEMOGLOBIN 11.3 g/dl (12.0-16.0); LYMPHOCYTES # (AUTO) 0.5 X10'3 (1.1-4.8); LYMPHOCYTES % (AUTO) 8.2 % (21-51); MEAN CORPUSCULAR HEMOGLOBIN 25.9 PG (27.0-31.0); MEAN CORPUSCULAR HGB CONC 32.9 g/dL (33.0-36.5); MEAN CORPUSCULAR VOLUME 78.7 FL (78-98); MEAN PLATELET VOLUME 8.5 FL (7.4-10.4); MONOCYTES # (AUTO) 0.2 X10'3 (0-0.9); MONOCYTES % (AUTO) 3.4 % (2-12); NEUTROPHILS % (AUTO) 87.2 % (42-75); PLATELET COUNT 181 X10'3 (140-440); RED BLOOD COUNT 4.37 X10'6 (4.20-5.60); RED CELL DISTRIBUTION WIDTH 20.3 % (11.5-14.5); WHITE BLOOD COUNT 5.7 X10'3 (4.5-11.0)
[2019-05-07] MEDS: pantoprazole 40 MG vial IV SCH (08:52)
[2019-05-07 09:00] LABS: ALANINE AMINOTRANSFERASE 451 U/L (12-78); ALBUMIN 1.6 G/DL (3.4-5.0); ALBUMIN/GLOBULIN RATIO 0.3 (1.1-1.5); ALKALINE PHOSPHATASE 254 IU/L (46-116); ANION GAP 9 (8-16); ASPARTATE AMINO TRANSFERASE 581 U/L (10-37); BILIRUBIN,TOTAL 1.2 MG/DL (0.1-1.0); BLOOD UREA NITROGEN 17 MG/DL (7-18); BUN/CREATININE RATIO 19.8 (6.6-38.0); CALCIUM 7.8 MG/DL (8.5-10.1); CHLORIDE 109 MMOL/L (99-107); CREATININE 0.86 MG/DL (0.40-0.90); GLUCOSE 142 MG/DL (70-104); MAGNESIUM 1.9 MG/DL (1.5-2.4); PHOSPHORUS 1.9 MG/DL (2.3-4.5); POTASSIUM 3.5 MMOL/L (3.5-5.1); SODIUM 138 MMOL/L (135-145); TOTAL CARBON DIOXIDE 19.9 MMOL/L (24-32); TOTAL PROTEIN 6.8 G/DL (6.4-8.2); eGFR 67 ML/MIN
[2019-05-07 09:02] LABS: VANCOMYCIN,TROUGH 26.8 UG/ML (6.0-14.0)
[2019-05-07 09:05] LABS: ANISOCYTOSIS 3+; HYPOCHROMASIA 1+; MICROCYTOSIS 1+; PLATELET ESTIMATE NORMAL
[2019-05-07] MEDS: vancomycin/NS 1 GM ADD-VANTAGE 250 ML IV SCH (09:07)
[2019-05-07] MEDS: CefTRIAXone 2gm/D5W 50ml 50 ML IV SCH (10:51)
[2019-05-07] MEDS: furosemide 20 MG/2 ML vial IV SCH (10:51)
[2019-05-07] MEDS: levetiracetam inj 500 MG in normal saline 100ml IV soln 95 ML IV SCH ×2 (10:51→19:25)
[2019-05-07] MEDS: dextrose 5%-normal saline 1,000 ML IV SCH (10:51)
[2019-05-07 11:01] LABS: APPEARANCE,CSF CLEAR; CSF SUPERNATANT COLOR COLORLESS
[2019-05-07 11:02] LABS: CSF RBC 2 /CU MM (0); CSF VOLUME 17 ML; TUBE# COUNTED 3
[2019-05-07 11:04] LABS: CSF WBC CT 1 /CU MM (0-5)
[2019-05-07 11:31] LABS: GLUCOSE,CSF 67 MG/DL (40-75); TOTAL PROTEIN,CSF 50 MG/DL (30-60)
[2019-05-07 18:06] VITALS: BP 162/73
--- NOTE | 2019-05-07 18:11 | NUR ---
Report to Cierra SANCHEZ
--- NOTE | 2019-05-07 18:15 | NUR ---
Patient in room ORTHO 4007. I have received report from Thi SANCHEZ and Stephy SANCHEZ and had the opportunity to ask questions and assume patient care.
[2019-05-07] MEDS: lactobacillus rhamnosus 10,000 MMU CELLS/CAPSULE PO SCH (20:27)
[2019-05-07] MEDS: vancomycin inj 500 MG in normal saline 100ml IV soln 100 ML IV SCH (20:27)
[2019-05-07 22:00] VITALS: BP 124/61
[2019-05-08] MEDS: lactulose 20gm/30ml cup PO SCH ×7 (02:00→19:45)
[2019-05-08 05:47] LABS: BASOPHILS % (AUTO) 0.6 % (0-1); EOSINOPHILS # (AUTO) 0.1 X10'3 (0-0.9); EOSINOPHILS % (AUTO) 2.5 % (0-6); HEMATOCRIT 33.2 % (35.0-45.0); HEMOGLOBIN 10.9 g/dl (12.0-16.0); LYMPHOCYTES # (AUTO) 0.6 X10'3 (1.1-4.8); LYMPHOCYTES % (AUTO) 17.1 % (21-51); MEAN CORPUSCULAR HEMOGLOBIN 25.9 PG (27.0-31.0); MEAN CORPUSCULAR HGB CONC 32.7 g/dL (33.0-36.5); MEAN CORPUSCULAR VOLUME 79.3 FL (78-98); MEAN PLATELET VOLUME 8.8 FL (7.4-10.4); MONOCYTES # (AUTO) 0.2 X10'3 (0-0.9); MONOCYTES % (AUTO) 6.8 % (2-12); NEUTROPHILS # (AUTO) 2.4 X10'3 (1.8-7.7); PLATELET COUNT 162 X10'3 (140-440); RED BLOOD COUNT 4.19 X10'6 (4.20-5.60); RED CELL DISTRIBUTION WIDTH 19.7 % (11.5-14.5); WHITE BLOOD COUNT 3.3 X10'3 (4.5-11.0)
[2019-05-08 06:02] LABS: ALANINE AMINOTRANSFERASE 427 U/L (12-78); ALBUMIN 1.5 G/DL (3.4-5.0); ALBUMIN/GLOBULIN RATIO 0.3 (1.1-1.5); ALKALINE PHOSPHATASE 264 IU/L (46-116); ANION GAP 8 (8-16); ASPARTATE AMINO TRANSFERASE 562 U/L (10-37); BLOOD UREA NITROGEN 15 MG/DL (7-18); CALCIUM 7.6 MG/DL (8.5-10.1); CHLORIDE 110 MMOL/L (99-107); CREATININE 0.88 MG/DL (0.40-0.90); GLUCOSE 85 MG/DL (70-104); MAGNESIUM 1.9 MG/DL (1.5-2.4); PHOSPHORUS 2.5 MG/DL (2.3-4.5); SODIUM 141 MMOL/L (135-145); TOTAL CARBON DIOXIDE 22.8 MMOL/L (24-32); TOTAL PROTEIN 6.7 G/DL (6.4-8.2); eGFR 65 ML/MIN
[2019-05-08 06:11] LABS: POTASSIUM 2.8 MMOL/L (3.5-5.1)
[2019-05-08] MEDS ORDERED: potassium CL 10mEq/100ml bag 100 ML IV PRN ×2 (06:15)
[2019-05-08] MEDS ORDERED: potassium Cl 20 mEq SR tablet PO PRN (06:15)
--- NOTE | 2019-05-08 06:25 | NUR ---
Problems reprioritized. Patient report given, questions answered & plan of care reviewed with Eda SANCHEZ.
--- NOTE | 2019-05-08 06:25 | NUR ---
Patient in room ORTHO 4007. I have received report from DANIEL Norton and had the opportunity to ask questions and assume patient care.
--- NOTE | 2019-05-08 06:38 | NUR ---
Problems reprioritized. Patient report given, questions answered & plan of care reviewed with Trisha RN.
[2019-05-08 06:59] LABS: TOTAL CELLS COUNTED 100
[2019-05-08 07:00] LABS: ANISOCYTOSIS 2+; ELLIPTOCYTES FEW; MICROCYTOSIS 1+; PLATELET ESTIMATE NORMAL; SCHISTOCYTES FEW; TEAR DROP CELLS FEW
[2019-05-08 07:01] LABS: HYPOCHROMASIA 1+
[2019-05-08] MEDS: K and/or MAG REPLACEMENT MC SCH ×2 (07:37)
[2019-05-08 07:45] VITALS: BP 107/44
[2019-05-08] MEDS: levetiracetam inj 500 MG in normal saline 100ml IV soln 95 ML IV SCH ×2 (08:05→19:45)
[2019-05-08] MEDS: aspirin 325mg tablet PO SCH (08:06)
[2019-05-08] MEDS: lactobacillus rhamnosus 10,000 MMU CELLS/CAPSULE PO SCH ×2 (08:06→19:44)
[2019-05-08] MEDS: pantoprazole 40 MG vial IV SCH (08:12)
[2019-05-08] MEDS: furosemide 20 MG/2 ML vial IV SCH (08:12)
[2019-05-08] MEDS: potassium Cl 20 mEq SR tablet PO PRN ×3 (08:12→16:15)
[2019-05-08] MEDS: heparin, porcine 5000 units/ml vial SQ SCH (08:12)
[2019-05-08] MEDS: atorvastatin 20mg tablet PO SCH (08:13)
[2019-05-08] MEDS: CefTRIAXone 2gm/D5W 50ml 50 ML IV SCH (08:39)
[2019-05-08 10:00] VITALS: BP 111/59
[2019-05-08] MEDS: vancomycin inj 500 MG in normal saline 100ml IV soln 100 ML IV SCH (10:35)
[2019-05-08 18:00] VITALS: BP_SYST 103; BP_SYST 114; BP_DIAS 50; BP_DIAS 63
--- NOTE | 2019-05-08 18:20 | NUR ---
Problems reprioritized. Patient report given, questions answered & plan of care reviewed with DANIEL Norton.
[2019-05-08 22:00] VITALS: BP_SYST 102; BP_SYST 103; BP_DIAS 50; BP_DIAS 51
[2019-05-08] MEDS: ondansetron/PF 4mg/2ml inj IV PRN (22:25)
[2019-05-09] MEDS: lactulose 20gm/30ml cup PO SCH ×4 (02:00→20:00)
--- NOTE | 2019-05-09 05:25 | NUR ---
Transdermal patch found on pt's upper right back. Patch removed. Patch said "Butrans (buprenorphine) Transdermal System 10 mcg/hr"
--- NOTE | 2019-05-09 06:37 | NUR ---
Problems reprioritized. Patient report given, questions answered & plan of care reviewed with Jazzy SANCHEZ.
[2019-05-09 07:00] VITALS: BP 104/63
--- NOTE | 2019-05-09 07:26 | NUR ---
Patient in room ORTHO 4014. I have received report from Cierra and had the opportunity to ask questions and assume patient care.
[2019-05-09] MEDS ORDERED: VANCOMYCIN LEVEL IV ONE (07:30)
[2019-05-09] MEDS: K and/or MAG REPLACEMENT MC SCH ×2 (08:00)
[2019-05-09] MEDS: pantoprazole 40 MG vial IV SCH (08:23)
[2019-05-09] MEDS: furosemide 20 MG/2 ML vial IV SCH (08:23)
[2019-05-09] MEDS: CefTRIAXone 2gm/D5W 50ml 50 ML IV SCH (08:23)
[2019-05-09] MEDS: lactobacillus rhamnosus 10,000 MMU CELLS/CAPSULE PO SCH ×2 (08:24→20:44)
[2019-05-09] MEDS: aspirin 325mg tablet PO SCH (08:25)
[2019-05-09] MEDS: atorvastatin 20mg tablet PO SCH (08:25)
[2019-05-09] MEDS: levetiracetam inj 500 MG in normal saline 100ml IV soln 95 ML IV SCH (08:26)
[2019-05-09 08:30] LABS: BASOPHILS % (AUTO) 0.9 % (0-1); EOSINOPHILS # (AUTO) 0.1 X10'3 (0-0.9); HEMATOCRIT 35.1 % (35.0-45.0); HEMOGLOBIN 11.2 g/dl (12.0-16.0); LYMPHOCYTES # (AUTO) 0.6 X10'3 (1.1-4.8); LYMPHOCYTES % (AUTO) 13.6 % (21-51); MEAN CORPUSCULAR HEMOGLOBIN 25.4 PG (27.0-31.0); MEAN CORPUSCULAR VOLUME 79.3 FL (78-98); MEAN PLATELET VOLUME 8.6 FL (7.4-10.4); MONOCYTES # (AUTO) 0.2 X10'3 (0-0.9); MONOCYTES % (AUTO) 5.1 % (2-12); NEUTROPHILS # (AUTO) 3.5 X10'3 (1.8-7.7); NEUTROPHILS % (AUTO) 78.4 % (42-75); PLATELET COUNT 172 X10'3 (140-440); RED BLOOD COUNT 4.42 X10'6 (4.20-5.60); RED CELL DISTRIBUTION WIDTH 20.7 % (11.5-14.5); WHITE BLOOD COUNT 4.5 X10'3 (4.5-11.0)
[2019-05-09 08:45] LABS: ALANINE AMINOTRANSFERASE 387 U/L (12-78); ALBUMIN 1.7 G/DL (3.4-5.0); ALBUMIN/GLOBULIN RATIO 0.3 (1.1-1.5); ALKALINE PHOSPHATASE 383 IU/L (46-116); ANION GAP 5 (8-16); ASPARTATE AMINO TRANSFERASE 558 U/L (10-37); BILIRUBIN,TOTAL 1.1 MG/DL (0.1-1.0); BLOOD UREA NITROGEN 15 MG/DL (7-18); BUN/CREATININE RATIO 17.6 (6.6-38.0); CALCIUM 8.1 MG/DL (8.5-10.1); CHLORIDE 109 MMOL/L (99-107); CREATININE 0.85 MG/DL (0.40-0.90); GLUCOSE 84 MG/DL (70-104); SODIUM 138 MMOL/L (135-145); TOTAL CARBON DIOXIDE 24.1 MMOL/L (24-32); TOTAL PROTEIN 6.9 G/DL (6.4-8.2); eGFR 68 ML/MIN
[2019-05-09 08:47] LABS: MAGNESIUM 1.8 MG/DL (1.5-2.4); PHOSPHORUS 2.2 MG/DL (2.3-4.5); POTASSIUM 3.9 MMOL/L (3.5-5.1); VANCOMYCIN,TROUGH 14.6 UG/ML (6.0-14.0)
[2019-05-09 09:45] LABS: ANISOCYTOSIS 3+; MICROCYTOSIS 1+; PLATELET ESTIMATE NORMAL; SCHISTOCYTES FEW
[2019-05-09 09:46] LABS: ELLIPTOCYTES FEW; HYPOCHROMASIA 1+; TEAR DROP CELLS FEW
[2019-05-09 11:12] VITALS: BP 110/74
--- NOTE | 2019-05-09 11:25 | NUR ---
Student documentation: I have reviewed all interventions, assessments performed and documented by Jia Tillman. Student Medication Administration: For this medication-pass time frame, all medication were reviewed, dispensed, administered and documented per hospital policy by Jia Tillman.
--- NOTE | 2019-05-09 12:56 | NUR ---
Page sent to Dr. Calderon PAGER ID: [phone] MESSAGE: [phone] Anushka Doe, patient has been NPO, can we resume her diet now? Jazzy SANCHEZ, Neuro [phone]
--- NOTE | 2019-05-09 17:37 | NUR ---
Initial: patient presented to ED with abdominal pain for 9 days, poor intake for two days prior to admission, and vomiting prior to admit. Per MD note patient has acute encephalopathy, had high temperature of 102 on 05/07. She is edentulous, seen by who recommends mechanical soft diet, patient currently getting mechanical soft foods with grind all. Patient seen at bedside, she has little appetite and states she is "on shakey ground," she declined drinking any oral nutrition supplement and would like to have vanilla milkshakes with dinner, d/w dietary to send with all dinners. She is eating poorly 0-25% of meals for three days. Will continue to follow and monitor PO intake. Recommend: 1. continue mechanical soft diet per ST reyna, grind all 2. vanilla milkshake with dinner 3. encourage PO intake 4. weight per rx Addendum: 05/09/19 at [address] Amended: Links added.
[2019-05-09 18:00] VITALS: BP 131/65
--- NOTE | 2019-05-09 18:10 | NUR ---
Problems reprioritized. Patient report given, questions answered & plan of care reviewed with Aleja.
[2019-05-09] MEDS: levetiracetam 250mg tablet PO SCH (20:45)
[2019-05-09] MEDS: famotidine 20mg tablet PO SCH (20:45)
[2019-05-09] MEDS: heparin, porcine 5000 units/ml vial SQ SCH (20:45)
[2019-05-09 22:00] VITALS: BP 94/49
[2019-05-10] MEDS: lactulose 20gm/30ml cup PO SCH ×4 (02:00→19:40)
[2019-05-10 06:00] VITALS: BP 99/46
--- NOTE | 2019-05-10 06:05 | NUR ---
Patient in room ORTHO 4007. I have received report from [place] and had the opportunity to ask questions and assume patient care.
[2019-05-10 07:25] LABS: BASOPHILS % (AUTO) 1.1 % (0-1); EOSINOPHILS # (AUTO) 0.1 X10'3 (0-0.9); EOSINOPHILS % (AUTO) 1.8 % (0-6); HEMATOCRIT 36.9 % (35.0-45.0); HEMOGLOBIN 12.1 g/dl (12.0-16.0); LYMPHOCYTES # (AUTO) 0.7 X10'3 (1.1-4.8); LYMPHOCYTES % (AUTO) 19.3 % (21-51); MEAN CORPUSCULAR HEMOGLOBIN 25.9 PG (27.0-31.0); MEAN CORPUSCULAR HGB CONC 32.7 g/dL (33.0-36.5); MEAN CORPUSCULAR VOLUME 79.4 FL (78-98); MEAN PLATELET VOLUME 8.8 FL (7.4-10.4); MONOCYTES # (AUTO) 0.2 X10'3 (0-0.9); MONOCYTES % (AUTO) 6.3 % (2-12); NEUTROPHILS # (AUTO) 2.5 X10'3 (1.8-7.7); NEUTROPHILS % (AUTO) 71.5 % (42-75); PLATELET COUNT 154 X10'3 (140-440); RED BLOOD COUNT 4.65 X10'6 (4.20-5.60); WHITE BLOOD COUNT 3.5 X10'3 (4.5-11.0)
[2019-05-10 07:49] LABS: ALANINE AMINOTRANSFERASE 358 U/L (12-78); ALBUMIN 1.7 G/DL (3.4-5.0); ALBUMIN/GLOBULIN RATIO 0.3 (1.1-1.5); ALKALINE PHOSPHATASE 441 IU/L (46-116); ANION GAP 9 (8-16); ASPARTATE AMINO TRANSFERASE 577 U/L (10-37); BILIRUBIN,TOTAL 1.2 MG/DL (0.1-1.0); BLOOD UREA NITROGEN 15 MG/DL (7-18); BUN/CREATININE RATIO 16.7 (6.6-38.0); CALCIUM 7.9 MG/DL (8.5-10.1); CHLORIDE 105 MMOL/L (99-107); GLUCOSE 71 MG/DL (70-104); MAGNESIUM 1.7 MG/DL (1.5-2.4); PHOSPHORUS 3.3 MG/DL (2.3-4.5); POTASSIUM 3.5 MMOL/L (3.5-5.1); SODIUM 137 MMOL/L (135-145); TOTAL CARBON DIOXIDE 23.1 MMOL/L (24-32); TOTAL PROTEIN 7.1 G/DL (6.4-8.2); eGFR 64 ML/MIN
[2019-05-10] MEDS: atorvastatin 20mg tablet PO SCH (08:00)
[2019-05-10] MEDS: furosemide 40mg tablet PO SCH (08:00)
[2019-05-10] MEDS: pregabalin 75mg capsule PO SCH (08:00)
[2019-05-10] MEDS: levetiracetam 250mg tablet PO SCH ×2 (08:01→19:40)
[2019-05-10] MEDS: lactobacillus rhamnosus 10,000 MMU CELLS/CAPSULE PO SCH ×2 (08:01→19:40)
[2019-05-10] MEDS: famotidine 20mg tablet PO SCH ×2 (08:01→19:41)
[2019-05-10] MEDS: heparin, porcine 5000 units/ml vial SQ SCH ×2 (08:02→19:40)
[2019-05-10] MEDS: CefTRIAXone 2gm/D5W 50ml 50 ML IV SCH (08:07)
[2019-05-10] MEDS: K and/or MAG REPLACEMENT MC SCH (08:32)
[2019-05-10] MEDS: aspirin 325mg tablet PO SCH (08:40)
[2019-05-10 09:30] LABS: ANISOCYTOSIS 2+; MICROCYTOSIS 1+; PLATELET ESTIMATE NORMAL
[2019-05-10 11:35] VITALS: BP 117/57
--- NOTE | 2019-05-10 11:39 | NUR ---
Student Medication Administration: For this medication-pass time frame, all medication were reviewed, dispensed, administered and documented per hospital policy by Gabriel SIGALA [facility]. Student documentation: I have reviewed all interventions, assessments performed and documented by Gabriel SIGALA [facility].
[2019-05-10] MEDS ORDERED: LACT10SO PO (12:33)
--- NOTE | 2019-05-10 12:53 | NUR ---
Pt's discharge order is in, however, pt does not have a ride until her daughter is off work at approximately 17:00. Pt lives with her daughter. Unable to obtain another ride at this time.
[2019-05-10 15:30] VITALS: BP 117/69
--- NOTE | 2019-05-10 18:00 | NUR ---
Patient in room ORTHO 4007. I have received report from Jazmin SANCHEZ and had the opportunity to ask questions and assume patient care.
--- NOTE | 2019-05-10 18:15 | NUR ---
Problems reprioritized. Patient report given, questions answered & plan of care reviewed with Chapis.
[2019-05-10 19:00] VITALS: BP 104/69
[2019-05-10 22:00] VITALS: BP 126/64
[2019-05-11] MEDS: lactulose 20gm/30ml cup PO SCH ×2 (01:07→07:34)
--- NOTE | 2019-05-11 04:29 | NUR ---
END NOC NOTE Patient slept very well tonight. Refused both the 1999 and 199 Lactulose administration, patient understands why she needs to take the medication and the importance. Patient stated she can't find her cellphone and was thinking that it has been lost or that someone took it home, will pass on to day shift to call the daughter in AM. Patient complains of 8-10/10 pain, falls fast asleep after statement. Patient is to discharge today in AM shift. Will continue to monitor.
[2019-05-11 06:00] VITALS: BP 121/63
--- NOTE | 2019-05-11 06:28 | NUR ---
Problems reprioritized. Patient report given, questions answered & plan of care reviewed with Jazmin SANCHEZ.
--- NOTE | 2019-05-11 06:34 | NUR ---
Patient in room ORTHO 4007. I have received report from Chapis and had the opportunity to ask questions and assume patient care.
[2019-05-11 06:48] LABS: BASOPHILS % (AUTO) 0.6 % (0-1); EOSINOPHILS # (AUTO) 0.1 X10'3 (0-0.9); EOSINOPHILS % (AUTO) 1.3 % (0-6); HEMATOCRIT 35.5 % (35.0-45.0); HEMOGLOBIN 11.8 g/dl (12.0-16.0); LYMPHOCYTES # (AUTO) 0.7 X10'3 (1.1-4.8); LYMPHOCYTES % (AUTO) 17.7 % (21-51); MEAN CORPUSCULAR HGB CONC 33.2 g/dL (33.0-36.5); MEAN CORPUSCULAR VOLUME 78.3 FL (78-98); MEAN PLATELET VOLUME 8.9 FL (7.4-10.4); MONOCYTES # (AUTO) 0.3 X10'3 (0-0.9); MONOCYTES % (AUTO) 6.9 % (2-12); NEUTROPHILS # (AUTO) 2.9 X10'3 (1.8-7.7); NEUTROPHILS % (AUTO) 73.5 % (42-75); PLATELET COUNT 183 X10'3 (140-440); RED BLOOD COUNT 4.53 X10'6 (4.20-5.60); WHITE BLOOD COUNT 3.9 X10'3 (4.5-11.0)
[2019-05-11] MEDS: famotidine 20mg tablet PO SCH (07:16)
[2019-05-11] MEDS: lactobacillus rhamnosus 10,000 MMU CELLS/CAPSULE PO SCH (07:16)
[2019-05-11] MEDS: CefTRIAXone 2gm/D5W 50ml 50 ML IV SCH (07:16)
[2019-05-11] MEDS: atorvastatin 20mg tablet PO SCH (07:17)
[2019-05-11] MEDS: levetiracetam 250mg tablet PO SCH (07:17)
[2019-05-11] MEDS: pregabalin 75mg capsule PO SCH (07:17)
[2019-05-11] MEDS: furosemide 40mg tablet PO SCH (07:17)
[2019-05-11] MEDS: heparin, porcine 5000 units/ml vial SQ SCH (07:18)
[2019-05-11 07:32] LABS: PLATELET ESTIMATE NORMAL; TOTAL CELLS COUNTED 100
[2019-05-11 07:33] LABS: LARGE PLATELETS FEW; TOXIC VACUOLATION FEW
[2019-05-11 07:34] LABS: ANISOCYTOSIS 2+; HYPOCHROMASIA 1+; MICROCYTOSIS 1+; POLYCHROMASIA FEW; SCHISTOCYTES FEW; SPHEROCYTES FEW
[2019-05-11 07:35] LABS: ELLIPTOCYTES FEW; TEAR DROP CELLS FEW
[2019-05-11] MEDS: K and/or MAG REPLACEMENT MC SCH (07:35)
[2019-05-11 07:36] LABS: SMUDGE CELLS 1+
[2019-05-11 07:42] LABS: TOXIC GRANULATION 1+
[2019-05-11] MEDS: aspirin 325mg tablet PO SCH (08:18)
[2019-05-11 08:41] LABS: ALANINE AMINOTRANSFERASE 331 U/L (12-78); ALBUMIN 1.7 G/DL (3.4-5.0); ALBUMIN/GLOBULIN RATIO 0.3 (1.1-1.5); ALKALINE PHOSPHATASE 603 IU/L (46-116); ANION GAP 5 (8-16); ASPARTATE AMINO TRANSFERASE 538 U/L (10-37); BILIRUBIN,TOTAL 1.1 MG/DL (0.1-1.0); BLOOD UREA NITROGEN 18 MG/DL (7-18); BUN/CREATININE RATIO 18.9 (6.6-38.0); CALCIUM 8.1 MG/DL (8.5-10.1); CHLORIDE 105 MMOL/L (99-107); CREATININE 0.95 MG/DL (0.40-0.90); GLUCOSE 83 MG/DL (70-104); MAGNESIUM 1.8 MG/DL (1.5-2.4); POTASSIUM 3.5 MMOL/L (3.5-5.1); SODIUM 135 MMOL/L (135-145); TOTAL CARBON DIOXIDE 24.6 MMOL/L (24-32); TOTAL PROTEIN 7.4 G/DL (6.4-8.2); eGFR 60 ML/MIN
--- NOTE | 2019-05-11 08:42 | NUR ---
Discharge orders are in. Pt unable to obtain until approximately 15:30, when her daughter gets off of work. Daughter will orange picking supervisor pt to drive her home.
[2019-05-11 10:00] VITALS: BP 106/68
--- NOTE | 2019-05-11 12:10 | NUR ---
Reviewed discharge instructions with pt. Pt verbalized understanding. Pt did decline to obtain the Rx for lactulose. All of pt's belongings had been taken home by pt's daughter while pt was still in ED. Pt is alert, oriented and does not have c/o pain at this time. Pt was wheeled downstairs to be driven home by her daughter.
== END 2019-05-11 12:15 | disposition home health service (06) ==
LOC: ER 15:18 → ED HOLD 20:18 → ORTHO 4S 21:25
PROVIDERS: ADMIT Internal Medicine; ATTEND Internal Medicine
PROC: 4A10X4Z Monitoring of Central Nervous Electrical Activity, External Approach (ICD-10-PCS; principal; 2019-05-06)
PROC: 009U3ZX Drainage of Spinal Canal, Percutaneous Approach, Diagnostic (ICD-10-PCS; 2019-05-07)
PROC: B01B1ZZ Fluoroscopy of Spinal Cord using Low Osmolar Contrast (ICD-10-PCS; 2019-05-07)
PROC: 0W9G3ZZ Drainage of Peritoneal Cavity, Percutaneous Approach (ICD-10-PCS; 2019-05-09)
DX: R18.8 Other ascites (principal); E43 Unspecified severe protein-calorie malnutrition; G93.40 Encephalopathy, unspecified; K74.60 Unspecified cirrhosis of liver; E86.0 Dehydration; E88.09 Other disorders of plasma-protein metabolism, not elsewhere classified; N39.0 Urinary tract infection, site not specified; D50.9 Iron deficiency anemia, unspecified; E87.6 Hypokalemia; E03.9 Hypothyroidism, unspecified; G43.909 Migraine, unspecified, not intractable, without status migrainosus; Z88.1 Allergy status to other antibiotic agents; R41.82 Altered mental status, unspecified; Z87.440 Personal history of urinary (tract) infections; Z87.01 Personal history of pneumonia (recurrent); Z80.42 Family history of malignant neoplasm of prostate; Z86.73 Personal history of transient ischemic attack (TIA), and cerebral infarction without residual deficits; Z68.26 Body mass index [BMI] 26.0-26.9, adult; Z82.3 Family history of stroke
CPT/HCPCS: 10160; 36415; 62270; 70544; 70551; 71046; 74177; 76705; 77003; 80048; 80053; 80061; 80202; 81001; 82140; 82784; 82945; 82948; 83540; 83550; 83605; 83690; 83735; 84100; 84145; 84157; 84443; 85025; 85610; 85730; 86703; 86704; 86706; 86803; 87015; 87040; 87070; 87081; 87088; 87340; 89051; 92508; 92616; 93005; 93306; 93880; 93975; 95816; 96365; 96375; 97110; 97112; 97116; 97124; 97162; 97530; 97535; 99285; C9113; G0378; J0696; J1644; J1940; J1953; J2405; J3370; J3480; J7042; Q9963; Q9967

== ENCOUNTER 2019-05-24 14:54 | Inpatient (IN) | payer MEDICAID ==
[~2019-05-24] VITALS: Ht 160 cm; Wt 68.0 kg
[~2019-05-24 14:54] MED LIST changes: -ALBU2.5V7 NEB; -DILT180C53 PO; -DOCU100C41 PO; -FAMO20TA8 PO; +LACT10SO PO; -LEVO125T PO; -LYR75C PO; -MUPI1OIN5 BOTHNARES; -OMEP20CA11 PO; -OXYC-658 PO
[2019-05-24] MEDS ORDERED: normal saline 1000ml 1,000 ML IV ONE (15:17)
[2019-05-24] MEDS ORDERED: ondansetron/PF 4mg/2ml inj IV ONE (15:20)
[2019-05-24] MEDS ORDERED: ketorolac tromethamine 15mg/ml inj. IV ONE (15:20)
[2019-05-24] MEDS ORDERED: normal saline 1000ML IV soln IVB ONE (15:20)
[2019-05-24 15:31] LABS: CLARITY,URINE CLOUDY (Clear); COLOR,URINE YELLOW (Yellow); GLUCOSE, URINE NEGATIVE (Neg); KETONES,URINE NEGATIVE (Neg); LEUKOCYTE ESTERASE ,URINE TRACE (Neg); NITRITES, URINE POSITIVE (Neg); OCCULT BLOOD,URINE LARGE (Neg); PH,URINE 6.5 (4.8-8.0); PROTEIN,URINE 100 mg/dl (Neg)
[2019-05-24 15:33] LABS: UA COLLECTION TYPE CLN CATCH MIDSTREAM
[2019-05-24 15:39] LABS: BACTERIA,URINE 4+ /HPF (Neg); HYALINE CASTS 0-3 /LPF (NEGATIVE); MUCUS STRANDS NONE SEEN /LPF (Neg); RBC,URINE TNTC /HPF (0-2); SQUAMOUS EPITHELIAL CELL,UR MODERATE /LPF (FEW); WBC CLUMPS,URINE FEW /HPF (NEGATIVE); WBC,URINE 30-50 /HPF (0-4)
[2019-05-24 15:47] LABS: URINE HCG NEGATIVE (NEG)
[2019-05-24 15:50] LABS: BASOPHILS % (AUTO) 0.5 % (0-1); EOSINOPHILS % (AUTO) 0.4 % (0-6); HEMATOCRIT 28.5 % (35.0-45.0); HEMOGLOBIN 9.3 g/dl (12.0-16.0); LYMPHOCYTES # (AUTO) 0.5 X10'3 (1.1-4.8); LYMPHOCYTES % (AUTO) 14.3 % (21-51); MEAN CORPUSCULAR HEMOGLOBIN 26.3 PG (27.0-31.0); MEAN CORPUSCULAR HGB CONC 32.5 g/dL (33.0-36.5); MEAN PLATELET VOLUME 8.7 FL (7.4-10.4); MONOCYTES # (AUTO) 0.1 X10'3 (0-0.9); MONOCYTES % (AUTO) 3.7 % (2-12); NEUTROPHILS # (AUTO) 2.9 X10'3 (1.8-7.7); NEUTROPHILS % (AUTO) 81.1 % (42-75); PLATELET COUNT 109 X10'3 (140-440); RED BLOOD COUNT 3.52 X10'6 (4.20-5.60); RED CELL DISTRIBUTION WIDTH 20.1 % (11.5-14.5); WHITE BLOOD COUNT 3.6 X10'3 (4.5-11.0)
[2019-05-24 16:02] LABS: PARTIAL THROMBOPLASTIN TIME 28 SECONDS (22-32)
[2019-05-24 16:04] LABS: ALANINE AMINOTRANSFERASE 163 U/L (12-78); ALBUMIN 1.8 G/DL (3.4-5.0); ALBUMIN/GLOBULIN RATIO 0.3 (1.1-1.5); ALKALINE PHOSPHATASE 401 IU/L (46-116); AMYLASE 42 U/L (25-115); ANION GAP 12 (8-16); ASPARTATE AMINO TRANSFERASE 238 U/L (10-37); BILIRUBIN,TOTAL 1.2 MG/DL (0.1-1.0); BLOOD UREA NITROGEN 18 MG/DL (7-18); BUN/CREATININE RATIO 19.4 (6.6-38.0); CALCIUM 8.3 MG/DL (8.5-10.1); CHLORIDE 110 MMOL/L (99-107); CREATININE 0.93 MG/DL (0.40-0.90); GLUCOSE 86 MG/DL (70-104); LIPASE 182 U/L (73-393); MAGNESIUM 1.9 MG/DL (1.5-2.4); POTASSIUM 4.2 MMOL/L (3.5-5.1); SODIUM 144 MMOL/L (135-145); TOTAL CARBON DIOXIDE 22.5 MMOL/L (24-32); TOTAL PROTEIN 7.2 G/DL (6.4-8.2); eGFR 61 ML/MIN
[2019-05-24 16:06] LABS: ETHANOL < 0.010 GM/DL (0.0-0.010)
[2019-05-24 16:49] LABS: PLATELET ESTIMATE DECREASED
[2019-05-24 16:53] LABS: ANISOCYTOSIS 3+; HYPOCHROMASIA 1+; POLYCHROMASIA 1+
[2019-05-24 16:54] LABS: TEAR DROP CELLS FEW
[2019-05-24] MEDS ORDERED: acetaminophen 325mg tablet PO PRN (17:35)
[2019-05-24] MEDS ORDERED: sincalide inj 1.36 MCG in normal saline 50ml IV soln 50 ML IV ONE (17:35)
[2019-05-24] MEDS ORDERED: potassium CL 10mEq/100ml bag 100 ML IV PRN ×2 (17:35)
[2019-05-24] MEDS ORDERED: magnesium 2GM in 50ml NS 50 ML IV PRN (17:35)
[2019-05-24] MEDS ORDERED: magnesium hydroxide 30ml (MOM) UD suspension PO PRN (17:35)
[2019-05-24] MEDS ORDERED: ondansetron/PF 4mg/2ml inj IV PRN (17:35)
[2019-05-24] MEDS ORDERED: potassium Cl 20 mEq SR tablet PO PRN ×2 (17:35)
[2019-05-24] MEDS ORDERED: magnesium 4gm in 100ml NS 100 ML IV PRN (17:35)
[2019-05-24] MEDS ORDERED: mag hydrox/Alum hydrox/simeth 30ml oral suspension PO PRN (17:35)
[2019-05-24] MEDS ORDERED: magnesium Cl slow-release 64mg tablet PO PRN (17:35)
[2019-05-24] MEDS ORDERED: HYDROmorphone 1 mg/ml syringe IV PRN (17:35)
[2019-05-24] MEDS: normal saline 1000ml 1,000 ML IV SCH (18:21)
[2019-05-24] MEDS ORDERED: DOCU-267 (18:25)
[2019-05-24] MEDS ORDERED: IBUP-1985 PO (18:25)
[2019-05-24] MEDS ORDERED: PRED5TAB PO (18:26)
[2019-05-24] MEDS ORDERED: PREG150C PO (18:30)
[2019-05-24 19:46] LABS: OCCULT BLOOD STOOL NEGATIVE (Neg)
[2019-05-24] MEDS: levetiracetam 250mg tablet PO SCH (20:00)
[2019-05-24] MEDS: pregabalin 75mg capsule PO SCH (20:01)
[2019-05-24] MEDS: methylPREDNISolone sod succ/PF 40mg inj. IV SCH (20:01)
[2019-05-24] MEDS: pantoprazole 40MG/NS 100ML BAG 100 ML IV SCH (20:29)
[2019-05-24 20:55] VITALS: BP 146/75
[2019-05-25] MEDS: pantoprazole 40MG/NS 100ML BAG 100 ML IV SCH ×3 (02:04→11:00)
[2019-05-25] MEDS: normal saline 1000ml 1,000 ML IV SCH ×2 (05:47→13:32)
[2019-05-25 06:00] VITALS: BP 133/67
[2019-05-25 06:01] LABS: BASOPHILS % (AUTO) 0.2 % (0-1); EOSINOPHILS % (AUTO) 0.1 % (0-6); HEMATOCRIT 26.1 % (35.0-45.0); HEMOGLOBIN 8.4 g/dl (12.0-16.0); LYMPHOCYTES # (AUTO) 0.3 X10'3 (1.1-4.8); LYMPHOCYTES % (AUTO) 13.8 % (21-51); MEAN CORPUSCULAR HEMOGLOBIN 26.4 PG (27.0-31.0); MEAN CORPUSCULAR HGB CONC 32.2 g/dL (33.0-36.5); MEAN CORPUSCULAR VOLUME 81.8 FL (78-98); MEAN PLATELET VOLUME 9.2 FL (7.4-10.4); MONOCYTES % (AUTO) 1.8 % (2-12); NEUTROPHILS # (AUTO) 1.9 X10'3 (1.8-7.7); NEUTROPHILS % (AUTO) 84.1 % (42-75); PLATELET COUNT 99 X10'3 (140-440); RED BLOOD COUNT 3.19 X10'6 (4.20-5.60); RED CELL DISTRIBUTION WIDTH 20.4 % (11.5-14.5); WHITE BLOOD COUNT 2.2 X10'3 (4.5-11.0)
[2019-05-25 06:13] LABS: ALANINE AMINOTRANSFERASE 125 U/L (12-78); ALBUMIN 1.6 G/DL (3.4-5.0); ALBUMIN/GLOBULIN RATIO 0.3 (1.1-1.5); ALKALINE PHOSPHATASE 358 IU/L (46-116); ANION GAP 11 (8-16); ASPARTATE AMINO TRANSFERASE 168 U/L (10-37); BLOOD UREA NITROGEN 16 MG/DL (7-18); BUN/CREATININE RATIO 16.5 (6.6-38.0); CALCIUM 7.5 MG/DL (8.5-10.1); CHLORIDE 113 MMOL/L (99-107); CREATININE 0.97 MG/DL (0.40-0.90); GLUCOSE 139 MG/DL (70-104); MAGNESIUM 1.9 MG/DL (1.5-2.4); POTASSIUM 3.9 MMOL/L (3.5-5.1); SODIUM 142 MMOL/L (135-145); TOTAL CARBON DIOXIDE 17.6 MMOL/L (24-32); TOTAL PROTEIN 6.7 G/DL (6.4-8.2); eGFR 58 ML/MIN
--- NOTE | 2019-05-25 06:24 | NUR ---
Problems reprioritized. Patient report given, questions answered & plan of care reviewed with DANIEL Johnson.
[2019-05-25] MEDS ORDERED: sincalide inj 1.36 MCG in normal saline 50ml IV soln 50 ML IV ONE (07:00)
[2019-05-25 07:24] LABS: ANISOCYTOSIS 3+; PLATELET ESTIMATE DECREASED; TOTAL CELLS COUNTED 100
[2019-05-25 07:25] LABS: HYPOCHROMASIA 1+; POLYCHROMASIA 1+
[2019-05-25] MEDS: enoxaparin 40mg/0.4ml syringe SQ SCH (08:00)
[2019-05-25] MEDS: K and/or MAG REPLACEMENT MC SCH (08:00)
[2019-05-25] MEDS: levetiracetam 250mg tablet PO SCH ×2 (08:14→20:15)
[2019-05-25] MEDS: pregabalin 75mg capsule PO SCH (08:14)
[2019-05-25] MEDS: methylPREDNISolone sod succ/PF 40mg inj. IV SCH ×2 (08:15→20:15)
[2019-05-25] MEDS ORDERED: NORMAL SALINE IV ONE (10:00)
[2019-05-25] MEDS ORDERED: SINCALIDE IV ONE (10:00)
--- NOTE | 2019-05-25 14:39 | NUR ---
Malnutrition consult: Pt admit w/ N/V 3 days prior to admit. Hx Guillain [place], GERD, and fatty liver per EMR. Pt placed on low fat/low cholesterol diet but currently NPO for OR. Pending MRCP and JENN given hx gallstones and for gallstone pathology per MD note. Pt current wt pt stated but seen 2 weeks prior admit by DEQUAN w/ same reported wt and no visible signs of muscle/fat wasting. Pt has no significant wt loss hx, weakness, or severe edema at this time. Currently pt fails to meet minimum malnutrition criteria. Will monitor for additional criteria pending PO hx post-op. Addendum: 05/25/19 at [address] Amended: Links added.
--- NOTE | 2019-05-25 16:53 | NUR ---
PAGER ID: [phone] MESSAGE: Elizabeth [phone] jackie Doe Anushka in [id number]- we cannot get a line in her, not even with ultrasound. If she needs a line tonight she will likely need a central line or IJ. How do you want to proceed?
--- NOTE | 2019-05-25 17:04 | NUR ---
PAGER ID: [phone] MESSAGE: Elizabeth [phone]- jackie Doe- regular PIV was established via US- we are good for now. Is it ok to decrease IVF rate to preserve the site? Like 75 ml/hr
[2019-05-25] MEDS: dextrose 5%-water 1,000 ML IV SCH (17:21)
[2019-05-25 18:00] VITALS: BP 115/65
--- NOTE | 2019-05-25 18:34 | NUR ---
Patient in room ORTHO 4015. I have received report from Elizabeth SANCHEZ and had the opportunity to ask questions and assume patient care.
--- NOTE | 2019-05-25 18:47 | NUR ---
Spoke pagerodrigo CAVANAUGH. Urine specimen shows Gram negative rods on no antibiotics. Also no preop antibiotics ordered. Addendum: 05/25/19 at 1853 by Nellie Mcleod RN Spoke with and new orders noted.
[2019-05-25] MEDS: CefTRIAXone/D5W-Rocephin 1gm 50 ML IV SCH (19:01)
[2019-05-25] MEDS ORDERED: pantoprazole 40 MG vial IV SCH (20:00)
[2019-05-25] MEDS: pantoprazole 40mg Tablet.DR PO SCH (20:15)
[2019-05-25 22:00] VITALS: BP 113/54
[2019-05-26] MEDS: HYDROmorphone inj. 0.5 MG/0.5 ML DISP.SYRIN IV PRN ×2 (04:31→19:25)
[2019-05-26 06:00] VITALS: BP 138/70
--- NOTE | 2019-05-26 06:05 | NUR ---
Patient in room ORTHO 4015. I have received report from Nellie SANCHEZ and had the opportunity to ask questions and assume patient care.
--- NOTE | 2019-05-26 06:13 | NUR ---
Problems reprioritized. Patient report given, questions answered & plan of care reviewed with Bharati SANCHEZ.
[2019-05-26 06:46] LABS: BASOPHILS % (AUTO) 0.1 % (0-1); EOSINOPHILS % (AUTO) 0 % (0-6); HEMATOCRIT 24.4 % (35.0-45.0); LYMPHOCYTES # (AUTO) 0.2 X10'3 (1.1-4.8); LYMPHOCYTES % (AUTO) 5.5 % (21-51); MEAN CORPUSCULAR HEMOGLOBIN 26.8 PG (27.0-31.0); MEAN CORPUSCULAR HGB CONC 32.7 g/dL (33.0-36.5); MEAN PLATELET VOLUME 8.9 FL (7.4-10.4); MONOCYTES # (AUTO) 0.3 X10'3 (0-0.9); MONOCYTES % (AUTO) 6.1 % (2-12); NEUTROPHILS # (AUTO) 3.9 X10'3 (1.8-7.7); NEUTROPHILS % (AUTO) 88.3 % (42-75); PLATELET COUNT 117 X10'3 (140-440); RED BLOOD COUNT 2.97 X10'6 (4.20-5.60); WHITE BLOOD COUNT 4.4 X10'3 (4.5-11.0)
[2019-05-26 07:00] LABS: ALANINE AMINOTRANSFERASE 96 U/L (12-78); ALBUMIN 1.5 G/DL (3.4-5.0); ALBUMIN/GLOBULIN RATIO 0.3 (1.1-1.5); ALKALINE PHOSPHATASE 332 IU/L (46-116); ANION GAP 10 (8-16); ASPARTATE AMINO TRANSFERASE 94 U/L (10-37); BILIRUBIN,TOTAL 0.6 MG/DL (0.1-1.0); BLOOD UREA NITROGEN 23 MG/DL (7-18); BUN/CREATININE RATIO 24.5 (6.6-38.0); CALCIUM 7.7 MG/DL (8.5-10.1); CHLORIDE 109 MMOL/L (99-107); CREATININE 0.94 MG/DL (0.40-0.90); GLUCOSE 202 MG/DL (70-104); POTASSIUM 4.1 MMOL/L (3.5-5.1); SODIUM 138 MMOL/L (135-145); TOTAL CARBON DIOXIDE 19.2 MMOL/L (24-32); TOTAL PROTEIN 6.5 G/DL (6.4-8.2); eGFR 61 ML/MIN
[2019-05-26] MEDS: enoxaparin 40mg/0.4ml syringe SQ SCH (07:02)
[2019-05-26] MEDS: CefTRIAXone/D5W-Rocephin 1gm 50 ML IV SCH (07:27)
[2019-05-26] MEDS: methylPREDNISolone sod succ/PF 40mg inj. IV SCH ×2 (07:27→19:26)
[2019-05-26] MEDS: levetiracetam 250mg tablet PO SCH ×2 (07:28→19:26)
[2019-05-26] MEDS: pregabalin 75mg capsule PO SCH (07:28)
[2019-05-26] MEDS: K and/or MAG REPLACEMENT MC SCH (07:34)
[2019-05-26 07:45] LABS: PLATELET ESTIMATE DECREASED
[2019-05-26 07:46] LABS: ANISOCYTOSIS 2+; HYPOCHROMASIA 1+; POLYCHROMASIA 1+
[2019-05-26 07:50] LABS: SCHISTOCYTES FEW; TEAR DROP CELLS FEW
[2019-05-26] MEDS: cefepime 1GM in D5W 50mL 50 ML IV SCH ×3 (08:00→23:48)
[2019-05-26 10:00] VITALS: BP 129/76
[2019-05-26] MEDS: dextrose 5%-water 1,000 ML IV SCH (12:58)
[2019-05-26 18:00] VITALS: BP 121/61
--- NOTE | 2019-05-26 18:28 | NUR ---
Problems reprioritized. Patient report given, questions answered & plan of care reviewed with Lily SANCHEZ.
--- NOTE | 2019-05-26 18:46 | NUR ---
Patient in room ORTHO 4015. I have received report from Bharati SANCHEZ and had the opportunity to ask questions and assume patient care.
[2019-05-26] MEDS: pantoprazole 40mg Tablet.DR PO SCH (21:33)
[2019-05-26 22:00] VITALS: BP 141/80
[2019-05-27 06:00] VITALS: BP 142/74
--- NOTE | 2019-05-27 06:35 | NUR ---
Problems reprioritized. Patient report given, questions answered & plan of care reviewed with AARTI SANCHEZ.
[2019-05-27 07:10] LABS: BASOPHILS % (AUTO) 0.2 % (0-1); EOSINOPHILS % (AUTO) 0 % (0-6); HEMATOCRIT 26.5 % (35.0-45.0); HEMOGLOBIN 8.8 g/dl (12.0-16.0); LYMPHOCYTES # (AUTO) 0.3 X10'3 (1.1-4.8); LYMPHOCYTES % (AUTO) 6.7 % (21-51); MEAN CORPUSCULAR HEMOGLOBIN 27.2 PG (27.0-31.0); MEAN CORPUSCULAR HGB CONC 33.2 g/dL (33.0-36.5); MEAN CORPUSCULAR VOLUME 82.1 FL (78-98); MEAN PLATELET VOLUME 8.8 FL (7.4-10.4); MONOCYTES # (AUTO) 0.2 X10'3 (0-0.9); MONOCYTES % (AUTO) 4.2 % (2-12); NEUTROPHILS # (AUTO) 4.2 X10'3 (1.8-7.7); NEUTROPHILS % (AUTO) 88.9 % (42-75); PLATELET COUNT 114 X10'3 (140-440); RED BLOOD COUNT 3.23 X10'6 (4.20-5.60); WHITE BLOOD COUNT 4.7 X10'3 (4.5-11.0)
[2019-05-27 07:34] LABS: ALANINE AMINOTRANSFERASE 90 U/L (12-78); ALBUMIN 1.6 G/DL (3.4-5.0); ALBUMIN/GLOBULIN RATIO 0.3 (1.1-1.5); ALKALINE PHOSPHATASE 334 IU/L (46-116); ANION GAP 9 (8-16); ASPARTATE AMINO TRANSFERASE 73 U/L (10-37); BILIRUBIN,TOTAL 0.6 MG/DL (0.1-1.0); BLOOD UREA NITROGEN 22 MG/DL (7-18); BUN/CREATININE RATIO 23.9 (6.6-38.0); CHLORIDE 107 MMOL/L (99-107); CREATININE 0.92 MG/DL (0.40-0.90); GLUCOSE 175 MG/DL (70-104); MAGNESIUM 1.9 MG/DL (1.5-2.4); POTASSIUM 3.8 MMOL/L (3.5-5.1); SODIUM 136 MMOL/L (135-145); TOTAL CARBON DIOXIDE 20.2 MMOL/L (24-32); TOTAL PROTEIN 6.6 G/DL (6.4-8.2); eGFR 62 ML/MIN
[2019-05-27] MEDS: dextrose 5%-water 1,000 ML IV SCH (07:39)
[2019-05-27] MEDS: cefepime 1GM in D5W 50mL 50 ML IV SCH ×2 (07:39→15:59)
[2019-05-27] MEDS: pregabalin 75mg capsule PO SCH (07:40)
[2019-05-27] MEDS: methylPREDNISolone sod succ/PF 40mg inj. IV SCH (07:40)
[2019-05-27] MEDS: levetiracetam 250mg tablet PO SCH (07:40)
[2019-05-27] MEDS: enoxaparin 40mg/0.4ml syringe SQ SCH (07:44)
[2019-05-27] MEDS: HYDROmorphone inj. 0.5 MG/0.5 ML DISP.SYRIN IV PRN ×2 (07:51→16:00)
[2019-05-27 07:52] LABS: PLATELET ESTIMATE DECREASED
[2019-05-27 07:53] LABS: ANISOCYTOSIS 2+; MICROCYTOSIS 1+; POLYCHROMASIA FEW
[2019-05-27] MEDS: K and/or MAG REPLACEMENT MC SCH (08:00)
[2019-05-27 10:23] VITALS: BP 136/95
[2019-05-27] MEDS ORDERED: PANT40TA4 PO (10:58)
[2019-05-27] MEDS ORDERED: LEVO500T2 PO (10:58)
[2019-05-27] MEDS ORDERED: PRED20TA PO (10:58)
[2019-05-27] MEDS ORDERED: HYDR-4383 PO (10:58)
[2019-05-27] MEDS ORDERED: ONDA4TAB12 PO (13:20)
== END 2019-05-27 17:27 | disposition home health service (06) ==
LOC: ER 14:54 → ED HOLD 17:32 → ORTHO 4S 20:45
PROVIDERS: ADMIT Family Medicine; ATTEND Family Medicine
DX: K74.60 Unspecified cirrhosis of liver (principal); G61.0 Guillain-Barre syndrome; I50.30 Unspecified diastolic (congestive) heart failure; D64.9 Anemia, unspecified; N39.0 Urinary tract infection, site not specified; K75.9 Inflammatory liver disease, unspecified; K82.9 Disease of gallbladder, unspecified; G43.909 Migraine, unspecified, not intractable, without status migrainosus; Z88.1 Allergy status to other antibiotic agents; Z88.8 Allergy status to other drugs, medicaments and biological substances; Z79.899 Other long term (current) drug therapy; Z82.3 Family history of stroke; Z86.73 Personal history of transient ischemic attack (TIA), and cerebral infarction without residual deficits; Z87.891 Personal history of nicotine dependence
CPT/HCPCS: 36415; 74181; 78227; 80053; 80320; 81001; 81025; 82150; 82272; 83690; 83735; 85025; 85610; 85730; 87077; 87081; 87088; 87186; 93005; A9537; C9113; G0378; J0692; J0696; J1170; J1650; J1885; J2405; J2805; J2920; J7030; J7070

== ENCOUNTER 2019-10-24 12:17 | Inpatient (IN) | payer MEDICAID, OTHER ==
[~2019-10-24] VITALS: Ht 160 cm; Wt 72.7 kg
[~2019-10-24 12:17] MED LIST changes: +DOCU-267; -FURO40TA4 PO; +HYDR-4383 PO; -LACT10SO PO; +ONDA4TAB12 PO; +PANT40TA4 PO; -POTA20TA19 PO; +PREG150C PO
[2019-10-24 13:26] LABS: BASOPHILS % (AUTO) 0.4 % (0-1); EOSINOPHILS % (AUTO) 0.2 % (0-6); HEMATOCRIT 35.2 % (35.0-45.0); HEMOGLOBIN 11.7 g/dl (12.0-16.0); LYMPHOCYTES % (AUTO) 11.9 % (21-51); MEAN CORPUSCULAR HGB CONC 33.2 g/dL (33.0-36.5); MEAN CORPUSCULAR VOLUME 90.4 FL (78-98); MEAN PLATELET VOLUME 9.1 FL (7.4-10.4); MONOCYTES # (AUTO) 0.5 X10'3 (0-0.9); NEUTROPHILS # (AUTO) 6.6 X10'3 (1.8-7.7); NEUTROPHILS % (AUTO) 81.5 % (42-75); PLATELET COUNT 171 X10'3 (140-440); RED BLOOD COUNT 3.89 X10'6 (4.20-5.60); RED CELL DISTRIBUTION WIDTH 21.5 % (11.5-14.5)
[2019-10-24 13:39] LABS: PARTIAL THROMBOPLASTIN TIME 27 SECONDS (22-32)
[2019-10-24 13:41] LABS: CLARITY,URINE CLOUDY (Clear); COLOR,URINE YELLOW (Yellow); GLUCOSE, URINE NEGATIVE (Neg); KETONES,URINE NEGATIVE (Neg); LEUKOCYTE ESTERASE ,URINE SMALL (Neg); NITRITES, URINE NEGATIVE (Neg); OCCULT BLOOD,URINE LARGE (Neg); PROTEIN,URINE 30 mg/dl (Neg); UROBILINOGEN,URINE 0.2 E.U/dL (0.2-1.0)
[2019-10-24 13:42] LABS: URINE HCG NEGATIVE (NEG)
[2019-10-24 13:43] LABS: UA COLLECTION TYPE FOLEY CATH
[2019-10-24 13:49] LABS: BACTERIA,URINE 2+ /HPF (Neg); SQUAMOUS EPITHELIAL CELL,UR MODERATE /LPF (FEW)
[2019-10-24 13:50] LABS: WBC CLUMPS,URINE FEW /HPF (NEGATIVE); WBC,URINE 20-30 /HPF (0-4)
[2019-10-24 13:51] LABS: HYALINE CASTS 0-3 /LPF (NEGATIVE); YEAST MANY /HPF (NEGATIVE)
[2019-10-24 13:53] LABS: ALANINE AMINOTRANSFERASE 85 U/L (12-78); ALBUMIN 2.8 G/DL (3.4-5.0); ALBUMIN/GLOBULIN RATIO 0.4 (1.1-1.5); ALKALINE PHOSPHATASE 555 IU/L (46-116); ANION GAP 10 (8-16); ASPARTATE AMINO TRANSFERASE 57 U/L (10-37); BILIRUBIN,TOTAL 0.9 MG/DL (0.1-1.0); BLOOD UREA NITROGEN 49 MG/DL (7-18); BUN/CREATININE RATIO 44.5 (6.6-38.0); CALCIUM 10.4 MG/DL (8.5-10.1); CHLORIDE 100 MMOL/L (99-107); GLUCOSE 123 MG/DL (70-104); MAGNESIUM 2.1 MG/DL (1.5-2.4); POTASSIUM 4.7 MMOL/L (3.5-5.1); SODIUM 132 MMOL/L (135-145); TOTAL CARBON DIOXIDE 22.5 MMOL/L (24-32); TOTAL PROTEIN 9.5 G/DL (6.4-8.2); eGFR 50 ML/MIN
[2019-10-24 13:59] LABS: ANISOCYTOSIS 3+; PLATELET ESTIMATE NORMAL
[2019-10-24] MEDS ORDERED: levetiracetam inj 1,000 MG in normal saline 100ml IV soln 90 ML IV STA (14:41)
[2019-10-24 14:45] LABS: CREATINE KINASE 7 U/L (26-192)
[2019-10-24] MEDS ORDERED: magnesium 2GM in 50ml NS 50 ML IV ONE (14:45)
[2019-10-24] MEDS ORDERED: magnesium hydroxide 30ml (MOM) UD suspension PO PRN (15:00)
[2019-10-24] MEDS ORDERED: mag hydrox/Alum hydrox/simeth 30ml oral suspension PO PRN (15:00)
[2019-10-24] MEDS ORDERED: acetaminophen 325mg tablet PO PRN (15:00)
[2019-10-24] MEDS ORDERED: ondansetron/PF 4mg/2ml inj IV PRN (15:00)
[2019-10-24] MEDS: normal saline 1000ml 1,000 ML IV SCH (15:29)
[2019-10-24] MEDS ORDERED: LACT1CAP26 PO (15:49)
[2019-10-24] MEDS ORDERED: PRED10TA23 PO (15:49)
[2019-10-24] MEDS ORDERED: LEVE500T PO (15:49)
[2019-10-24] MEDS ORDERED: SPIR50TA5 PO (15:49)
[2019-10-24] MEDS ORDERED: URSO300C8 PO (15:49)
[2019-10-24] MEDS ORDERED: FURO-150 PO (15:49)
[2019-10-24] MEDS ORDERED: LYR75C PO (15:49)
[2019-10-24] MEDS ORDERED: LACO200T2 PO (15:49)
[2019-10-24] MEDS ORDERED: VANC125C5 PO (15:49)
[2019-10-24] MEDS ORDERED: ARFO15VI NEB (15:49)
[2019-10-24] MEDS ORDERED: DIPH-423 PO (15:49)
[2019-10-24] MEDS ORDERED: AMLO5TAB PO (15:49)
[2019-10-24] MEDS ORDERED: LACT10SO57 PO (15:49)
[2019-10-24] MEDS ORDERED: MYC15CR TOP (15:49)
[2019-10-24] MEDS ORDERED: INSU100V43 SQ (15:49)
[2019-10-24] MEDS ORDERED: BUDE0.5A11 NEB (15:49)
[2019-10-24] MEDS ORDERED: ACET-1008 PO (15:49)
--- NOTE | 2019-10-24 15:55 | NUR ---
called to give report to DANIEL Benson she says room is not clean to call back in 30 mins, I asked her to call when clean
[2019-10-24 17:00] VITALS: BP 141/62
[2019-10-24 17:32] LABS: HEMOGLOBIN A1C 5.7 % (4.5-6.2)
--- NOTE | 2019-10-24 18:23 | NUR ---
Problems reprioritized. Patient report given, questions answered & plan of care reviewed with Pat RN.
[2019-10-24] MEDS: vancomycin 125mg/5ml ORAL solution 5ml UD bottle PO SCH (20:00)
[2019-10-24] MEDS: levetiracetam 250mg tablet PO SCH (20:00)
[2019-10-24] MEDS: NYSTATIN CREAM - 30GM TUBE TP SCH (20:00)
[2019-10-24] MEDS: Ursodiol 300mg capsule PO SCH (20:00)
[2019-10-24] MEDS: pregabalin 75mg capsule PO SCH (20:00)
[2019-10-24] MEDS: spironolactone 50 MG tablet PO SCH (20:00)
[2019-10-24] MEDS: furosemide 20MG tablet PO SCH (20:00)
[2019-10-24] MEDS: LACOSAMIDE 200 MG PO SCH (20:00)
[2019-10-24] MEDS: lactulose 20gm/30ml cup PO SCH (20:00)
[2019-10-24] MEDS: predniSONE 5mg tablet PO SCH (20:00)
[2019-10-24] MEDS: albuterol 2.5 MG/3 ML nebule NEB SCH (20:33)
[2019-10-24] MEDS: budesonide 0.5mg/2ml UD nebule IH SCH (20:33)
[2019-10-24] MEDS ORDERED: levetiracetam-NS 1000mg/100ml 100 ML IV ONE (20:45)
[2019-10-24] MEDS: heparin, porcine 5000 units/ml vial SQ SCH (21:53)
[2019-10-24 22:00] VITALS: BP 127/57
[2019-10-25] MEDS: normal saline 1000ml 1,000 ML IV SCH ×2 (01:19→14:59)
[2019-10-25] MEDS: vancomycin 125mg/5ml ORAL solution 5ml UD bottle PO SCH ×4 (01:36→20:44)
[2019-10-25 05:55] LABS: BASOPHILS % (AUTO) 0.4 % (0-1); EOSINOPHILS % (AUTO) 0.1 % (0-6); HEMATOCRIT 29.1 % (35.0-45.0); HEMOGLOBIN 9.5 g/dl (12.0-16.0); LYMPHOCYTES # (AUTO) 1.2 X10'3 (1.1-4.8); LYMPHOCYTES % (AUTO) 16.5 % (21-51); MEAN CORPUSCULAR HGB CONC 32.7 g/dL (33.0-36.5); MEAN CORPUSCULAR VOLUME 91.7 FL (78-98); MEAN PLATELET VOLUME 9.1 FL (7.4-10.4); MONOCYTES # (AUTO) 0.4 X10'3 (0-0.9); MONOCYTES % (AUTO) 5.8 % (2-12); NEUTROPHILS # (AUTO) 5.8 X10'3 (1.8-7.7); NEUTROPHILS % (AUTO) 77.2 % (42-75); PLATELET COUNT 137 X10'3 (140-440); RED BLOOD COUNT 3.18 X10'6 (4.20-5.60); RED CELL DISTRIBUTION WIDTH 21.5 % (11.5-14.5); WHITE BLOOD COUNT 7.5 X10'3 (4.5-11.0)
[2019-10-25 06:00] VITALS: BP 128/53
--- NOTE | 2019-10-25 06:00 | NUR ---
Patient in room ORTHO 4008. I have received report from Juanita RN and had the opportunity to ask questions and assume patient care.
[2019-10-25 06:02] LABS: ALBUMIN 2.2 G/DL (3.4-5.0); ANION GAP 9 (8-16); BLOOD UREA NITROGEN 48 MG/DL (7-18); CALCIUM 9.8 MG/DL (8.5-10.1); CHLORIDE 107 MMOL/L (99-107); CREATININE 0.96 MG/DL (0.40-0.90); GLUCOSE 82 MG/DL (70-104); SODIUM 138 MMOL/L (135-145); TOTAL CARBON DIOXIDE 21.9 MMOL/L (24-32); eGFR 59 ML/MIN
[2019-10-25] MEDS: albuterol 2.5 MG/3 ML nebule NEB SCH ×2 (06:57→20:40)
[2019-10-25] MEDS: budesonide 0.5mg/2ml UD nebule IH SCH ×2 (06:57→20:40)
[2019-10-25 07:30] LABS: ANISOCYTOSIS 3+; PLATELET ESTIMATE DECREASED
[2019-10-25] MEDS: LACOSAMIDE 200 MG PO SCH ×2 (08:00→20:00)
[2019-10-25] MEDS: NYSTATIN CREAM - 30GM TUBE TP SCH ×2 (08:00→08:08)
[2019-10-25] MEDS: spironolactone 50 MG tablet PO SCH ×2 (08:27→20:43)
[2019-10-25] MEDS: Ursodiol 300mg capsule PO SCH ×2 (08:27→20:43)
[2019-10-25] MEDS: pregabalin 75mg capsule PO SCH ×2 (08:27→20:44)
[2019-10-25] MEDS: predniSONE 5mg tablet PO SCH ×2 (08:28→20:44)
[2019-10-25] MEDS: heparin, porcine 5000 units/ml vial SQ SCH ×2 (08:28→20:45)
[2019-10-25] MEDS: lactulose 20gm/30ml cup PO SCH ×2 (08:28→20:46)
[2019-10-25] MEDS: amLODIPine 5mg tablet PO SCH (08:28)
[2019-10-25] MEDS: furosemide 20MG tablet PO SCH ×2 (08:28→20:43)
[2019-10-25] MEDS: levetiracetam 250mg tablet PO SCH ×2 (08:34→20:43)
[2019-10-25 10:00] VITALS: BP 100/37
--- NOTE | 2019-10-25 12:05 | NUR ---
PAGER ID: [phone] MESSAGE: RE: [id number] Anushka Doe. Keeps taking EEG cap off. Do you want to continue till 5pm? Needs sitter if so. RYLAN [phone]
--- NOTE | 2019-10-25 12:31 | NUR ---
DM Consult: A1C 5.7 and not appropriate for DM ed at this time. Addendum: 10/25/19 at [address] Amended: Links added.
[2019-10-25 18:00] VITALS: BP 115/54
--- NOTE | 2019-10-25 18:38 | NUR ---
Problems reprioritized. Patient report given, questions answered & plan of care reviewed with Nellie SANCHEZ.
--- NOTE | 2019-10-25 18:39 | NUR ---
Patient in room ORTHO 4008. I have received report from Bharati SANCHEZ and had the opportunity to ask questions and assume patient care.
[2019-10-25 22:00] VITALS: BP 135/54
[2019-10-26] MEDS: normal saline 1000ml 1,000 ML IV SCH ×2 (00:23→06:57)
[2019-10-26] MEDS: vancomycin 125mg/5ml ORAL solution 5ml UD bottle PO SCH ×2 (02:16→07:46)
[2019-10-26 05:14] LABS: BASOPHILS % (AUTO) 0.5 % (0-1); EOSINOPHILS % (AUTO) 0.1 % (0-6); HEMATOCRIT 25.8 % (35.0-45.0); HEMOGLOBIN 8.4 g/dl (12.0-16.0); LYMPHOCYTES # (AUTO) 0.9 X10'3 (1.1-4.8); LYMPHOCYTES % (AUTO) 15.5 % (21-51); MEAN CORPUSCULAR HEMOGLOBIN 30.3 PG (27.0-31.0); MEAN CORPUSCULAR HGB CONC 32.7 g/dL (33.0-36.5); MEAN CORPUSCULAR VOLUME 92.9 FL (78-98); MEAN PLATELET VOLUME 8.9 FL (7.4-10.4); MONOCYTES # (AUTO) 0.3 X10'3 (0-0.9); MONOCYTES % (AUTO) 4.9 % (2-12); NEUTROPHILS # (AUTO) 4.4 X10'3 (1.8-7.7); PLATELET COUNT 117 X10'3 (140-440); RED BLOOD COUNT 2.77 X10'6 (4.20-5.60); RED CELL DISTRIBUTION WIDTH 21.2 % (11.5-14.5); WHITE BLOOD COUNT 5.5 X10'3 (4.5-11.0)
[2019-10-26 05:37] LABS: ALBUMIN 1.9 G/DL (3.4-5.0); ANION GAP 9 (8-16); BLOOD UREA NITROGEN 32 MG/DL (7-18); BUN/CREATININE RATIO 37.6 (6.6-38.0); CHLORIDE 109 MMOL/L (99-107); CREATININE 0.85 MG/DL (0.40-0.90); GLUCOSE 85 MG/DL (70-104); POTASSIUM 4.2 MMOL/L (3.5-5.1); SODIUM 138 MMOL/L (135-145); TOTAL CARBON DIOXIDE 20.2 MMOL/L (24-32); eGFR 68 ML/MIN
[2019-10-26 06:00] VITALS: BP 106/50
--- NOTE | 2019-10-26 06:28 | NUR ---
Problems reprioritized. Patient report given, questions answered & plan of care reviewed with Bharati SANCHEZ.
--- NOTE | 2019-10-26 06:36 | NUR ---
Patient in room ORTHO 4008. I have received report from Nellie SANCHEZ and had the opportunity to ask questions and assume patient care.
[2019-10-26 06:38] LABS: ANISOCYTOSIS 3+; PLATELET ESTIMATE DECREASED
[2019-10-26 06:39] LABS: HYPOCHROMASIA 1+; TEAR DROP CELLS 1+
[2019-10-26] MEDS: levetiracetam 250mg tablet PO SCH (07:44)
[2019-10-26] MEDS: spironolactone 50 MG tablet PO SCH (07:44)
[2019-10-26] MEDS: Ursodiol 300mg capsule PO SCH (07:45)
[2019-10-26] MEDS: pregabalin 75mg capsule PO SCH (07:45)
[2019-10-26] MEDS: lactulose 20gm/30ml cup PO SCH (07:46)
[2019-10-26] MEDS: predniSONE 5mg tablet PO SCH (07:46)
[2019-10-26] MEDS: furosemide 20MG tablet PO SCH (07:46)
[2019-10-26] MEDS: heparin, porcine 5000 units/ml vial SQ SCH (07:47)
[2019-10-26] MEDS: NYSTATIN CREAM - 30GM TUBE TP SCH (07:48)
[2019-10-26] MEDS: amLODIPine 5mg tablet PO SCH (07:49)
[2019-10-26] MEDS: LACOSAMIDE 200 MG PO SCH (07:52)
[2019-10-26] MEDS: budesonide 0.5mg/2ml UD nebule IH SCH (08:32)
[2019-10-26] MEDS: albuterol 2.5 MG/3 ML nebule NEB SCH (08:32)
[2019-10-26 10:00] VITALS: BP 109/50
[2019-10-26 14:13] LABS: HEMATOCRIT 27.3 % (35.0-45.0); MEAN CORPUSCULAR HEMOGLOBIN 29.9 PG (27.0-31.0); MEAN CORPUSCULAR HGB CONC 32.9 g/dL (33.0-36.5); MEAN PLATELET VOLUME 8.8 FL (7.4-10.4); PLATELET COUNT 114 X10'3 (140-440); WHITE BLOOD COUNT 5.3 X10'3 (4.5-11.0)
[2019-10-26] MEDS ORDERED: LEVE250T PO (15:11)
[2019-10-26 16:18] LABS: OCCULT BLOOD STOOL NEGATIVE (Neg)
== END 2019-10-26 16:35 | DRG 52 ==
LOC: ER 12:17 → ED HOLD 14:57 → ORTHO 4S 16:44
PROVIDERS: ADMIT Family Medicine; ATTEND Family Medicine
PROC: 4A10X4Z Monitoring of Central Nervous Electrical Activity, External Approach (ICD-10-PCS; principal; 2019-10-24)
DX: G93.41 Metabolic encephalopathy (principal); J69.0 Pneumonitis due to inhalation of food and vomit; G61.0 Guillain-Barre syndrome; A04.72 Enterocolitis due to Clostridium difficile, not specified as recurrent; K72.90 Hepatic failure, unspecified without coma; G40.A01 Absence epileptic syndrome, not intractable, with status epilepticus; E03.9 Hypothyroidism, unspecified; K74.60 Unspecified cirrhosis of liver; G43.909 Migraine, unspecified, not intractable, without status migrainosus; D53.9 Nutritional anemia, unspecified; R74.0 Nonspecific elevation of levels of transaminase and lactic acid dehydrogenase [LDH]; K21.9 Gastro-esophageal reflux disease without esophagitis; N28.9 Disorder of kidney and ureter, unspecified; K75.81 Nonalcoholic steatohepatitis (NASH); K80.20 Calculus of gallbladder without cholecystitis without obstruction; N39.0 Urinary tract infection, site not specified; Z79.4 Long term (current) use of insulin; Z82.3 Family history of stroke; Z88.5 Allergy status to narcotic agent; Z88.2 Allergy status to sulfonamides; Z79.899 Other long term (current) drug therapy
CPT/HCPCS: 36415; 71045; 80048; 80053; 81001; 81025; 82272; 82550; 82948; 83036; 83605; 83735; 84145; 85025; 85027; 85610; 85730; 87040; 87077; 87081; 87088; 87186; 92508; 92616; 93005; 94640; 94760; 95951; 99285; G0378; J1644; J1953; J3475; J7030; J7512; J7626

== ENCOUNTER 2020-07-03 13:32 | Emergency (ER) | payer MEDICAID, OTHER ==
[~2020-07-03] VITALS: Ht 160 cm; Wt 63.6 kg
[~2020-07-03 13:32] MED LIST changes: +AMLO5TAB PO; +ARFO15VI NEB; +BUDE0.5A11 NEB; -DOCU-267; +FURO-150 PO; -HYDR-4383 PO; +INSU100V43 SQ; -KEP500T PO; +LACO200T2 PO; +LACT10SO57 PO; +LACT1CAP26 PO; +LEVE250T PO; +LYR75C PO; +MYC15CR TOP; -ONDA4TAB12 PO; -PANT40TA4 PO; +PRED10TA23 PO; -PREG150C PO; +SPIR50TA5 PO; +URSO300C8 PO; +VANC125C5 PO
[2020-07-03 14:40] VITALS: BP 142/84
[2020-07-03] MEDS ORDERED: ketorolac trometh. 30mg/ml inj. IM ONE (15:15)
[2020-07-03] MEDS ORDERED: ketorolac tromethamine 15mg/ml inj. IM ONE (15:20)
[2020-07-03] MEDS ORDERED: LIDO1ADH TOP (15:20)
== END 2020-07-03 15:42 | disposition home or self-care (01) ==
LOC: ER 13:32
DX: S39.012A Strain of muscle, fascia and tendon of lower back, initial encounter (principal); G43.909 Migraine, unspecified, not intractable, without status migrainosus; Z87.440 Personal history of urinary (tract) infections; Z87.01 Personal history of pneumonia (recurrent); Z88.5 Allergy status to narcotic agent; Z88.1 Allergy status to other antibiotic agents; Z88.8 Allergy status to other drugs, medicaments and biological substances; Z79.4 Long term (current) use of insulin; Z79.899 Other long term (current) drug therapy; X58.XXXA Exposure to other specified factors, initial encounter; Y93.89 Activity, other specified; Y92.89 Other specified places as the place of occurrence of the external cause; Y99.8 Other external cause status
CPT/HCPCS: 96372; 99283; J1885

== ENCOUNTER 2020-07-19 15:25 | Emergency (ER) | payer MEDICAID ==
[~2020-07-19] VITALS: Ht 160 cm; Wt 152.0 kg
[~2020-07-19 15:25] MED LIST changes: +LIDO1ADH TOP
[2020-07-19] MEDS ORDERED: HYDROcodone/acetaminophen 10/325mg tab PO ONE (15:55)
[2020-07-19] MEDS ORDERED: HYDR-3965 PO (16:12)
--- NOTE | 2020-07-19 16:14 | NUR ---
Pt. SpO2 100% with 4L O2, O2 titrated down to RA, SpO2 96%
[2020-07-19 17:43] VITALS: BP 134/66
== END 2020-07-19 18:52 | disposition home or self-care (01) ==
LOC: ER 15:26
DX: M54.5 Low back pain (principal); G43.909 Migraine, unspecified, not intractable, without status migrainosus; Z87.01 Personal history of pneumonia (recurrent); Z87.440 Personal history of urinary (tract) infections; Z86.73 Personal history of transient ischemic attack (TIA), and cerebral infarction without residual deficits; Z85.44 Personal history of malignant neoplasm of other female genital organs
CPT/HCPCS: 72131; 99284

== ENCOUNTER → 2021-02-24 | Emergency (ER) | payer MEDICARE, MEDICAID ==
[~2021-02-24] VITALS: Ht 160 cm; Wt 78.0 kg
[~2021-02-24] MED LIST changes: -ARFO15VI NEB; -BUDE0.5A11 NEB; +CALC250T2 PO; +CHOL200074 PO; +FEXO-61 PO; -INSU100V43 SQ; -LACO200T2 PO; -LACT1CAP26 PO; +LEVE10006 PO; -LEVE250T PO; +LEVO500T89 PO; -LIDO1ADH TOP; -LYR75C PO; -MYC15CR TOP; +PANT40TA54 PO; +PRE5T PO; -PRED10TA23 PO; +PREG150C46 PO; -VANC125C5 PO; +levetiracetam inj 1,000 MG in normal saline 100ml IV soln 90 ML IV ONE
[2021-02-24 04:21] LABS: BASOPHILS % (AUTO) 0.2 % (0-1); EOSINOPHILS % (AUTO) 0.1 % (0-6); HEMATOCRIT 39.8 % (35.0-45.0); LYMPHOCYTES # (AUTO) 0.4 X10'3 (1.1-4.8); LYMPHOCYTES % (AUTO) 6.2 % (21-51); MEAN CORPUSCULAR HGB CONC 32.8 g/dL (33.0-36.5); MEAN CORPUSCULAR VOLUME 94.6 FL (78-98); MEAN PLATELET VOLUME 8.5 FL (7.4-10.4); MONOCYTES # (AUTO) 0.3 X10'3 (0-0.9); MONOCYTES % (AUTO) 4.4 % (2-12); NEUTROPHILS # (AUTO) 5.2 X10'3 (1.8-7.7); NEUTROPHILS % (AUTO) 89.1 % (42-75); PLATELET COUNT 140 X10'3 (140-440); RED CELL DISTRIBUTION WIDTH 14.5 % (11.5-14.5); WHITE BLOOD COUNT 5.8 X10'3 (4.5-11.0)
[2021-02-24 04:37] LABS: ALANINE AMINOTRANSFERASE 79 U/L (12-78); ALBUMIN/GLOBULIN RATIO 0.7 (1.1-1.5); ALKALINE PHOSPHATASE 576 IU/L (46-116); ANION GAP 10 (8-16); ASPARTATE AMINO TRANSFERASE 66 U/L (10-37); BILIRUBIN,TOTAL 0.9 MG/DL (0.1-1.0); BLOOD UREA NITROGEN 24 MG/DL (7-18); BUN/CREATININE RATIO 21.1 (6.6-38.0); CALCIUM 8.6 MG/DL (8.5-10.1); CHLORIDE 108 MMOL/L (99-107); CREATININE 1.14 MG/DL (0.40-0.90); GLUCOSE 192 MG/DL (70-104); SODIUM 139 MMOL/L (135-145); TOTAL PROTEIN 7.1 G/DL (6.4-8.2); eGFR 48 ML/MIN
[2021-02-24 08:43] VITALS: BP 148/83
--- NOTE | 2021-02-24 11:15 | NUR ---
CALL TO DAUGHTER JORDYN TO HOSPICE MASSAGE THERAPIST PATIENT. PAT TO HOSPICE MASSAGE THERAPIST PAT DC.
== END | disposition home or self-care (01) ==
LOC: ER 03:39
DX: G40.909 Epilepsy, unspecified, not intractable, without status epilepticus (principal); Z20.822 Contact with and (suspected) exposure to COVID-19; G43.909 Migraine, unspecified, not intractable, without status migrainosus; Z87.01 Personal history of pneumonia (recurrent); Z87.440 Personal history of urinary (tract) infections; Z90.49 Acquired absence of other specified parts of digestive tract; Z79.899 Other long term (current) drug therapy; Z88.8 Allergy status to other drugs, medicaments and biological substances; Z88.2 Allergy status to sulfonamides
CPT/HCPCS: 36415; 70450; 80053; 85025; 87635; 93005; 96365; 96366; 99285; C9803; J1953; 96375

== ENCOUNTER 2023-09-27 20:07 | Emergency (ER) | payer MEDICARE, MEDICAID ==
[~2023-09-27] VITALS: Ht 160 cm; Wt 68.2 kg
[~2023-09-27 20:07] MED LIST changes: -AMLO5TAB PO; +BENZ-111 PO; -FEXO-61 PO; -FURO-150 PO; +HYDR200T73 PO; -LACT10SO57 PO; +LEVE10002 PO; -LEVE10006 PO; -LEVO500T89 PO; +LINE600T14 PO; -PANT40TA54 PO; -PRE5T PO; -PREG150C46 PO; +PREG150C47 PO; -SPIR50TA5 PO; -levetiracetam inj 1,000 MG in normal saline 100ml IV soln 90 ML IV ONE
[2023-09-27 20:12] VITALS: BP 144/61; PULSE 91; RESP 16; TEMP 97.4; O2SAT 100
== END 2023-09-27 21:45 | disposition home or self-care (01) ==
LOC: ER 20:08
DX: S61.401A Unspecified open wound of right hand, initial encounter (principal); G43.909 Migraine, unspecified, not intractable, without status migrainosus; Z88.5 Allergy status to narcotic agent; Z88.2 Allergy status to sulfonamides; Z79.899 Other long term (current) drug therapy; Z90.49 Acquired absence of other specified parts of digestive tract; W01.0XXA Fall on same level from slipping, tripping and stumbling without subsequent striking against object, initial encounter; Y93.89 Activity, other specified; Y92.89 Other specified places as the place of occurrence of the external cause; Y99.8 Other external cause status
CPT/HCPCS: 12001; 99282

== ENCOUNTER 2024-07-02 14:40 | Outpatient (CLI) | payer MEDICARE, MEDICAID | END 2024-07-02 23:59 | disposition home or self-care (01) | LOC: MRI02 14:40 | PROVIDERS: ATTEND Nurse Practitioner Adult Health | DX: S32.000A Wedge compression fracture of unspecified lumbar vertebra, initial encounter for closed fracture (principal); M51.17 Intervertebral disc disorders with radiculopathy, lumbosacral region; M47.26 Other spondylosis with radiculopathy, lumbar region; M54.59 Other low back pain; M46.1 Sacroiliitis, not elsewhere classified; R20.2 Paresthesia of skin; Z87.81 Personal history of (healed) traumatic fracture; X58.XXXA Exposure to other specified factors, initial encounter; Y93.89 Activity, other specified; Y92.89 Other specified places as the place of occurrence of the external cause; Y99.8 Other external cause status | CPT/HCPCS: 72148 ==

== ENCOUNTER 2025-01-02 11:11 | Emergency (ER) | payer MEDICARE, MEDICAID ==
[~2025-01-02] VITALS: Ht 157.5 cm; Wt 77.5 kg
[2025-01-02 11:23] VITALS: BP 125/74; PULSE 75; RESP 20; O2SAT 100
[2025-01-02] MEDS ORDERED: ACYC-128 PO (12:04)
[2025-01-02] MEDS ORDERED: CEPH-585 PO (12:04)
--- NOTE | 2025-01-02 12:05 | Physician Documentation ---
History of Present Illness ~ Chief Complaint: Multiple Medical Complaints Stated Complaint: FINGER PAIN Time Seen by MD: 11:50 OK to notify your PCP?: Yes Primary Medical Doctor: DR VALDIVIA Source: patient Mode of Arrival: POV Exam Limitations: no limitations HPI This is a 69-year-old female who comes in complaining of two areas of discoloration of the bilateral upper extremities. Her main complaint is a blister on the distal tip of the left ring finger that she has had for the past three days. She states it aches and throbs. She has got some surrounding erythema but no erythema of the wraps around the entire finger or tracts up with the fingers with the hand. She denies range of motion or strength deficits. She is also complaining of the patch of erythema in the right proximal forearm. She denies fluctuance or discharge with the area. She does have some breaks in the skin of the area however she is not diabetic. The patient does smoke cigarettes Tetanus within 5 years: No Medication Reconciliation Allergies: Coded Allergies: codeine (Verified Allergy, Severe, SWELLED UP AND TURNED BLUE, 01/02/25) sulfamethoxazole (Verified Allergy, Severe, DOESNT REMEMBER BUT "IT WAS REALLY BAD REACTION", 01/02/25) trimethoprim (Verified Allergy, Severe, DOESNT REMEMBER BUT "IT WAS REALLY BAD REACTION", 01/02/25) Scheduled Calcium Citrate (Calcium Citrate), 2 TAB PO QDPC, (Reported) Cholecalciferol (Vitamin D3) (Vitamin D3), 2 CAP PO DAILY, (Reported) Hydroxychloroquine Sulfate* (Plaquenil*), 1 TAB PO DAILY, (Reported) Levetiracetam (Keppra), 1 TAB PO Q12H Linezolid (Linezolid), 600 MG PO BID Pregabalin (Pregabalin), 1 CAP PO DAILY, (Reported) Ursodiol (Actigall), 1 CAPSULE PO TID, (Reported) Scheduled PRN Benzonatate (Benzonatate), 100 MG PO Q8H PRN for cough Past Medical History Past Medical History: Migraine, Seizures, Pneumonia, Cirrohsis, Liver Failure, Renal Disease, UTI Past Surgical History: cholecystectomy Patient History: CVA MOTHER, Name: Reymundo Doe, , Age: 54, Cause: Aneurysm, Not a twin, Race: WHITE FH: aortic aneurysm MOTHER, Name: Reymundo Doe, , Age: 54, Cause: Aneurysm, Not a twin, Race: WHITE FH: lung cancer Brother FH: prostate cancer FATHER, Name: Ross Doe, , Age: 74, Cause: Prostatic cancer, Not a twin, Adopted, Race: WHITE Alcohol Use: None Drug Use: none Lives with: Family Lives In: Home Physical Exam Vital Signs: Temperature: 97.2, Source: Temporal, Heart Rate: 75, Respiratory Rate: 20, BP: 125/74, Pulse Oximetry: 100, Weight: 77.500 Oxygen Flow Rate: 0 Pulse Oximetry Reflects: adequate oxygenation General Appearance: alert, WD/WN, no apparent distress Digit To inspection of the left ring finger the patient has a a vesicle that is a proximally 0.5 cm in diameter with some mild surrounding erythema that the lateral hypothenar aspect with the tip of the finger. It does not overlying the joints. It appears consistent with a herpetic jarred. There was no fusiform erythema or edema. No range of motion or strength deficits with the finger with flexion-extension. To inspection of the right upper extremity the patient has a patch of erythema of the proximal forearm just distal to the elbow. This is on the dorsum of the forearm. Areas slightly warm to palpation. No ascending lymphangitis. No erythema or edema of the completely wraps around with the arm. It does not not involve any joints. There are some abrasions and breaks in the skin of the area. Progress Results/Orders Results/Orders Vital Signs 01/02/25 11:23 Temp 97.2 Pulse 75 Resp 20 B/P (MAP) 125/74 Pulse Ox 100 O2 Flow Rate 0 Medical Decision Making Findings The vesicle in the left ring finger appears consistent with a herpetic jarred. I am going to place the patient on acyclovir 800 mg 4 times a day for 10 days and the patient states you can take ibuprofen for pain. I will also place the patient on Keflex to cover for any bacterial etiology both of the left ring finger in the right forearm. She is to follow up closely with the primary care physician for recheck in the next couple of days and return to the ER for any worsening or concerning symptoms Additional Comment Cellulitis right forearm. Paronychia left ring finger. Herpetic jarred. Fingertip infection. Felon Departure Disposition: 01 HOME / SELF CARE / HOMELESS Impression: Primary Impression: Herpetic jarred Additional Impression: Cellulitis of arm, right Condition: Stable Discharge Instructions: Herpetic Jarred Additional Instructions: Take the medications as prescribed and [id number] ibuprofen for pain. Keep the area covered on the left ring finger with a Band-Aid. Follow up with your primary care physician for wound check in the next couple of days and return to the ER for any worsening or concerning symptoms Referrals: NO PRIMARY CARE PROVIDER (PCP) Prescriptions Cephalexin*Monohydrate* (Keflex*) 500 Mg Capsule 1 CAP PO Q6H for 10 Days, #40 CAP Prov: SHEMAR CALLOWAY 01/02/25 Acyclovir (ACYCLOVIR) 800 Mg Tablet 1 TAB PO 5XD for 10 Days, #50 TAB Prov: SHEMAR CALLOWAY 01/02/25 Signature Scribe Signature: No Scribe Attestation: The note accurately reflects work and decisions made by me.Shemar SAAB 01/02/25 12:04 SHEMAR CALLOWAY Jan 02, 2025 12:05
[2025-01-02 12:16] VITALS: TEMP 97.2
== END 2025-01-02 12:18 | disposition home or self-care (01) ==
LOC: ER 11:11
DX: B00.89 Other herpesviral infection (principal); L03.113 Cellulitis of right upper limb; G43.909 Migraine, unspecified, not intractable, without status migrainosus; F17.210 Nicotine dependence, cigarettes, uncomplicated; Z88.1 Allergy status to other antibiotic agents; Z88.2 Allergy status to sulfonamides; Z88.5 Allergy status to narcotic agent; Z90.49 Acquired absence of other specified parts of digestive tract
CPT/HCPCS: 99283